=== PATIENT | male | born 1990 | race Caucasian/White ===

== ENCOUNTER 2016-08-27 11:47 | Inpatient (IN) | payer MEDICARE, MEDICAID ==
[~2016-08-27] VITALS: Ht 185.4 cm; Wt 66.3 kg
[~2016-08-27 11:47] MED LIST: ALBU8.5H3 INH; AMLO5TAB4 PO; AZIT500T4 PO; BISA10SU65 PR; CEFD125S3 PO; CEFD300C2 PO; CEPH-368 PO; CIPR500T87 PO; DIPH25CA61 PO; DOXY100T PO; LEVO112T4 PO; LEVO750T26 PO; LISI-424 PO; METR500T PO; METR500T4 PO; ONDA4TAB7 PO; ONDA8TAB16 SL; OXYC15TA PO; OXYC15TA60 PO; POLY17PO5 PO; SENN1TAB7 PO
[2016-08-27] MEDS ORDERED: ONDANSETRON 2MG/ML, 2ML ONE ×2 (12:47→14:01)
[2016-08-27] MEDS ORDERED: HYDROmorphone 1 MG/ML, 1ML ONE ×4 (12:47→17:36)
[2016-08-27] MEDS ORDERED: FAMOTIDINE 20 MG/2 ML ONE (12:47)
[2016-08-27] MEDS: HYDROmorphone 1 MG/ML, 1ML IVPush PRN ×2 (12:55→13:12)
[2016-08-27] MEDS ORDERED: ONDANSETRON 2MG/ML, 2ML IVPush ONE ×2 (13:00→14:30)
[2016-08-27] MEDS ORDERED: FAMOTIDINE 20 MG/2 ML IVP ONE (13:00)
[2016-08-27] MEDS ORDERED: SODIUM CHLORIDE 0.9% 1,000ML IVBOLUS ONE ×2 (13:00→17:30)
[2016-08-27] MEDS ORDERED: SODIUM CHLORIDE FLUSH 10ML SYR IVF ONE (13:00)
[2016-08-27 13:11] LABS: HEMOGLOBIN 14.3 g/dL (13.7-18.0)
[2016-08-27 13:24] LABS: ASPARTATE AMINO TRANSFERASE 13 U/L (15-37); BLOOD UREA NITROGEN 15 mg/dL (7-18)
[2016-08-27 13:34] LABS: IS PT STATUS REG ER OR PRE ER? YES
[2016-08-27] MEDS ORDERED: HYDROmorphone 1 MG/ML, 1ML IV ONE ×2 (14:30→17:30)
[2016-08-27] MEDS ORDERED: OMNIPAQUE 350 MG/ML, 100ML BOTTLE ONE (16:12)
[2016-08-27] MEDS ORDERED: METOCLOPRAMIDE 5 MG/ML, 2ML IVPush ONE (16:30)
[2016-08-27] MEDS ORDERED: METOCLOPRAMIDE 5 MG/ML, 2ML ONE (16:31)
[2016-08-27] MEDS ORDERED: LEVOFLOXACIN/PMX 750MG/150ML 150 ML IV ONE (17:30)
[2016-08-27] MEDS ORDERED: LEVOFLOXACIN/PMX 750MG/150ML 150 ML ONE (17:36)
[2016-08-27] MEDS ORDERED: HYDROmorphone 1 MG/ML, 1ML IVPush PRN (18:00)
[2016-08-27] MEDS ORDERED: VANCOMYCIN PER PHARMACY MC PRN (18:30)
[2016-08-27] MEDS ORDERED: ONDANSETRON 2MG/ML, 2ML IVP PRN (18:30)
[2016-08-27] MEDS ORDERED: DOCUSATE 100 MG CAPSULE PO PRN (18:30)
[2016-08-27] MEDS ORDERED: BISACODYL 10 MG SUPP PR PRN (18:30)
[2016-08-27] MEDS ORDERED: ACETAMINOPHEN 325 MG TABLET PO PRN (18:30)
[2016-08-27] MEDS ORDERED: LABETALOL 5MG/ML, 20ML IVPush PRN (18:30)
[2016-08-27 18:53] VITALS: BP_SYST 200; BP_SYST 214; BP_DIAS 151; BP_DIAS 153
[2016-08-27] MEDS ORDERED: PHARMACY MAY ADJ FOR RENAL FX MC PRN (19:00)
[2016-08-27] MEDS ORDERED: PHARMACOKINETIC MONITORING MC PRN (19:00)
[2016-08-27] MEDS ORDERED: PHARMACOKINETIC CONSULTATION MC ONE (19:00)
[2016-08-27] MEDS: PIPERACILLIN/TAZO/PMX 3.375GM 50 ML IV SCH (19:25)
[2016-08-27] MEDS: SODIUM CHLORIDE 0.9% 1,000 ML IV SCH (19:29)
[2016-08-27] MEDS: ENOXAPARIN 40 MG/0.4 ML SQ SCH (20:00)
[2016-08-27] MEDS: VANCOMYCIN 1,200 MG in SODIUM CHLORIDE 0.9% 250 ML IV SCH (20:09)
[2016-08-27] MEDS: KETOROLAC 30 MG/1 ML IVPush PRN (20:09)
[2016-08-27 20:13] LABS: IS PT STATUS REG ER OR PRE ER? NO
[2016-08-27] MEDS: LACTOBACILLUS 1GM/ PACKET PO SCH (20:53)
[2016-08-27 21:50] VITALS: BP 152/105
[2016-08-27] MEDS ORDERED: SODIUM CHLORIDE INHALATION 3%, 4 ML NEB SCH (22:00)
[2016-08-27] MEDS: OXYcodone IR 5MG TABLET PO PRN (22:19)
[2016-08-27] MEDS: ONDANSETRON 2MG/ML, 2ML IVPush PRN (23:31)
[2016-08-28 01:04] VITALS: BP 187/132
[2016-08-28 01:23] LABS: IS PT STATUS REG ER OR PRE ER? NO
[2016-08-28] MEDS ORDERED: SODIUM PHOSPHATE 20 MMOL in SODIUM CHLORIDE 0.9% 500 ML IV ONE (02:00)
[2016-08-28] MEDS ORDERED: MAGNESIUM SULFATE PMX 2GM/50ML 50 ML IV ONE ×2 (02:00→13:30)
[2016-08-28] MEDS: PIPERACILLIN/TAZO/PMX 3.375GM 50 ML IV SCH ×3 (03:21→20:55)
[2016-08-28] MEDS: KETOROLAC 30 MG/1 ML IVPush PRN ×3 (03:25→20:55)
[2016-08-28] MEDS: ONDANSETRON 2MG/ML, 2ML IVPush PRN ×4 (04:46→20:02)
[2016-08-28 04:48] LABS: HEMOGLOBIN 14.7 g/dL (13.7-18.0)
[2016-08-28 05:08] LABS: ASPARTATE AMINO TRANSFERASE 19 U/L (15-37); BLOOD UREA NITROGEN 10 mg/dL (7-18)
[2016-08-28] MEDS: LACTOBACILLUS 1GM/ PACKET PO SCH ×4 (05:58→21:00)
[2016-08-28 07:26] VITALS: BP 142/106
[2016-08-28] MEDS: SODIUM CHLORIDE 0.9% 1,000 ML IV SCH ×2 (07:56→19:30)
[2016-08-28] MEDS: OXYcodone IR 5MG TABLET PO PRN ×3 (07:59→20:02)
[2016-08-28] MEDS: LEVOTHYROXINE 125 MCG TABLET PO SCH (07:59)
[2016-08-28] MEDS: SODIUM CHLORIDE INHALATION 3%, 4 ML NPPB SCH ×2 (09:00→21:00)
[2016-08-28] MEDS: VANCOMYCIN 1,200 MG in SODIUM CHLORIDE 0.9% 250 ML IV SCH ×2 (11:25→23:31)
[2016-08-28 12:55] VITALS: BP 103/68
[2016-08-28] MEDS ORDERED: POTASSIUM PHOSPHATE 44 MEQ in SODIUM CHLORIDE 0.9% 500 ML IV ONE (13:30)
[2016-08-28] MEDS ORDERED: DIPHENHYDRAMINE 50 MG/ML, 1ML IVPush ONE (17:30)
[2016-08-28 18:55] VITALS: BP 114/70
[2016-08-28] MEDS: ENOXAPARIN 40 MG/0.4 ML SQ SCH (20:00)
[2016-08-28] MEDS: DIPHENHYDRAMINE 25 MG CAPSULE PO PRN (22:03)
[2016-08-29 01:59] VITALS: BP 120/81
[2016-08-29] MEDS: SODIUM CHLORIDE 0.9% 1,000 ML IV SCH ×2 (03:13→17:07)
[2016-08-29] MEDS: ONDANSETRON 2MG/ML, 2ML IVPush PRN ×4 (03:13→20:55)
[2016-08-29] MEDS: OXYcodone IR 5MG TABLET PO PRN ×3 (05:08→17:04)
[2016-08-29] MEDS: PIPERACILLIN/TAZO/PMX 3.375GM 50 ML IV SCH ×2 (05:09→13:34)
[2016-08-29] MEDS: LACTOBACILLUS 1GM/ PACKET PO SCH ×4 (05:14→20:06)
[2016-08-29 08:41] VITALS: BP 146/97
[2016-08-29] MEDS: SODIUM CHLORIDE INHALATION 3%, 4 ML NPPB SCH ×2 (09:00→21:00)
[2016-08-29] MEDS: LEVOTHYROXINE 125 MCG TABLET PO SCH (09:02)
[2016-08-29] MEDS: KETOROLAC 30 MG/1 ML IVPush PRN ×2 (09:02→15:43)
[2016-08-29] MEDS: VANCOMYCIN 1,200 MG in SODIUM CHLORIDE 0.9% 250 ML IV SCH (11:07)
[2016-08-29 13:21] VITALS: BP 141/98
[2016-08-29] MEDS ORDERED: POTASSIUM PHOSPHATE 44 MEQ in SODIUM CHLORIDE 0.9% 500 ML IV ONE (17:00)
[2016-08-29] MEDS ORDERED: SODIUM CHLORIDE 0.9% 1,000 ML IV SCH (17:00)
[2016-08-29] MEDS: DIPHENHYDRAMINE 25 MG CAPSULE PO PRN (17:45)
[2016-08-29 19:48] VITALS: BP 140/93
[2016-08-29] MEDS: ENOXAPARIN 40 MG/0.4 ML SQ SCH (20:00)
[2016-08-30] MEDS: OXYcodone IR 5MG TABLET PO PRN ×2 (00:05→08:40)
[2016-08-30] MEDS: KETOROLAC 30 MG/1 ML IVPush PRN ×2 (00:05→07:15)
[2016-08-30 01:10] VITALS: BP 118/79
[2016-08-30] MEDS: SODIUM CHLORIDE 0.9% 1,000 ML IV SCH (01:17)
[2016-08-30 04:38] LABS: HEMOGLOBIN 12.8 g/dL (13.7-18.0)
[2016-08-30 04:50] LABS: BLOOD UREA NITROGEN 13 mg/dL (7-18)
[2016-08-30] MEDS: LACTOBACILLUS 1GM/ PACKET PO SCH ×2 (05:35→11:05)
[2016-08-30] MEDS: ONDANSETRON 2MG/ML, 2ML IVPush PRN ×2 (07:15→11:29)
[2016-08-30] MEDS: LEVOTHYROXINE 125 MCG TABLET PO SCH (07:15)
[2016-08-30] MEDS: SODIUM CHLORIDE INHALATION 3%, 4 ML NPPB SCH (07:41)
[2016-08-30 08:41] VITALS: BP 120/79
[2016-08-30] MEDS ORDERED: LACT1CAP24 PO (11:20)
== END 2016-08-30 12:00 | disposition home or self-care (01) | DRG 304 ==
LOC: ED 12:29 → 3NW 18:19
PROVIDERS: ADMIT Internal Medicine; ATTEND Internal Medicine
DX: I16.0 Hypertensive urgency (principal); E43 Unspecified severe protein-calorie malnutrition; J47.0 Bronchiectasis with acute lower respiratory infection; E44.1 Mild protein-calorie malnutrition; K86.1 Other chronic pancreatitis; M87.9 Osteonecrosis, unspecified; D49.6 Neoplasm of unspecified behavior of brain; E03.9 Hypothyroidism, unspecified; G89.29 Other chronic pain; R13.10 Dysphagia, unspecified; I10 Essential (primary) hypertension; M54.5 Low back pain; K11.5 Sialolithiasis; K21.9 Gastro-esophageal reflux disease without esophagitis; Z85.818 Personal history of malignant neoplasm of other sites of lip, oral cavity, and pharynx; Z87.891 Personal history of nicotine dependence; Z87.01 Personal history of pneumonia (recurrent); Z93.0 Tracheostomy status; Z80.9 Family history of malignant neoplasm, unspecified
CPT/HCPCS: 36415; 71010; 74177; 80048; 80053; 80061; 81003; 83605; 83690; 83735; 84100; 84145; 84443; 84484; 85025; 85379; 87040; 87070; 87205; 93005; 96361; 96365; 96375; 96376; J1170; J1885; J1956; J2405; J2543; J3370; Q9967; J1200; J2765; J3475; J7030; J7040; J7050; Q0163; S0028

== ENCOUNTER 2016-10-29 15:33 | Emergency (ER) | payer MEDICARE, MEDICAID ==
[~2016-10-29] VITALS: Ht 185.4 cm; Wt 61.6 kg
[~2016-10-29 15:33] MED LIST changes: -AZIT500T4 PO; +AZIT500T77 PO; -CEFD300C2 PO; +CEFD300C37 PO; +LACT1CAP24 PO
[2016-10-29] MEDS ORDERED: SODIUM CHLORIDE 0.9% 1,000 ML IV ONE (15:48)
[2016-10-29] MEDS ORDERED: SODIUM CHLORIDE 0.9% 1,000ML IVBOLUS ONE ×2 (16:30→18:00)
[2016-10-29 16:33] LABS: ASPARTATE AMINO TRANSFERASE 31 U/L (15-37); BLOOD UREA NITROGEN 13 mg/dL (7-18)
[2016-10-29] MEDS ORDERED: ONDANSETRON 2MG/ML, 2ML ONE (16:47)
[2016-10-29] MEDS ORDERED: HYDROmorphone 1 MG/ML, 1ML ONE ×2 (16:47→17:56)
[2016-10-29] MEDS ORDERED: ONDANSETRON 2MG/ML, 2ML IVPush ONE (17:00)
[2016-10-29] MEDS ORDERED: HYDROmorphone 1 MG/ML, 1ML IVPush ONE ×2 (17:00→18:00)
[2016-10-29 18:01] VITALS: BP 119/92
== END 2016-10-29 20:03 | disposition home or self-care (01) ==
LOC: ED 15:58
DX: R06.00 Dyspnea, unspecified (principal); E86.0 Dehydration; D49.6 Neoplasm of unspecified behavior of brain; E03.9 Hypothyroidism, unspecified; I10 Essential (primary) hypertension; K21.9 Gastro-esophageal reflux disease without esophagitis; Z85.818 Personal history of malignant neoplasm of other sites of lip, oral cavity, and pharynx; Z92.3 Personal history of irradiation; R11.2 Nausea with vomiting, unspecified; G89.29 Other chronic pain; R10.9 Unspecified abdominal pain
CPT/HCPCS: 36415; 70360; 71010; 80053; 85025; 85379; 93005; 96361; 96374; 96375; 96376; 99285; J1170; J2405; J7030

== ENCOUNTER 2016-12-09 14:06 | Inpatient (IN) | payer MEDICARE, MEDICAID ==
[~2016-12-09] VITALS: Ht 185.4 cm; Wt 61.9 kg
[2016-12-09] MEDS ORDERED: SODIUM CHLORIDE 0.9% 1,000 ML IV ONE (14:37)
[2016-12-09] MEDS ORDERED: ONDANSETRON 2MG/ML, 2ML ONE (14:57)
[2016-12-09] MEDS ORDERED: HYDROmorphone 1 MG/ML, 1ML ONE ×2 (14:57→17:16)
[2016-12-09] MEDS ORDERED: SODIUM CHLORIDE FLUSH 10ML SYR IVF ONE (15:00)
[2016-12-09] MEDS ORDERED: SODIUM CHLORIDE 0.9% 1,000ML IVBOLUS ONE ×2 (15:00→16:30)
[2016-12-09] MEDS ORDERED: ONDANSETRON 2MG/ML, 2ML IVPush ONE (15:00)
[2016-12-09] MEDS: HYDROmorphone 1 MG/ML, 1ML IVPush PRN ×2 (15:11→17:21)
[2016-12-09 15:27] LABS: ASPARTATE AMINO TRANSFERASE 17 U/L (15-37); BLOOD UREA NITROGEN 15 mg/dL (7-18)
[2016-12-09] MEDS ORDERED: OMNIPAQUE 350 MG/ML, 100ML BOTTLE ONE (16:13)
[2016-12-09] MEDS ORDERED: METRONIDAZOLE PMX 500MG/100ML 100 ML IVPB ONE (16:30)
[2016-12-09] MEDS ORDERED: CEFTRIAXONE PMX 1GM/50ML 50 ML IVPB ONE (16:30)
[2016-12-09] MEDS ORDERED: AZITHROMYCIN 500 MG in SODIUM CHLORIDE 0.9% 250 ML IVPB ONE (16:30)
[2016-12-09] MEDS ORDERED: POLYETHYLENE GLYCOL 17 GM PACKET PO PRN (17:00)
[2016-12-09] MEDS ORDERED: ENALAPRILAT 1.25 MG/ML, 2ML IV PRN (17:00)
[2016-12-09] MEDS ORDERED: GUAIFENESIN/DM 200-20MG, 10ML UDC PO PRN (17:00)
[2016-12-09] MEDS ORDERED: OXYcodone/APAP 5/325MG TABLET PO PRN (17:00)
[2016-12-09] MEDS ORDERED: DOCUSATE 100 MG CAPSULE PO PRN (17:00)
[2016-12-09] MEDS ORDERED: ENOXAPARIN 40 MG/0.4 ML ONE (17:16)
[2016-12-09] MEDS ORDERED: DIPHENHYDRAMINE 50 MG/ML, 1ML ONE (17:16)
[2016-12-09] MEDS: ENOXAPARIN 40 MG/0.4 ML SQ SCH (17:22)
[2016-12-09] MEDS ORDERED: SODIUM CHLORIDE INHALATION 3%, 4 ML NEB ONE (18:30)
[2016-12-09 19:00] VITALS: BP 116/74
[2016-12-09] MEDS: CEFTRIAXONE PMX 1GM/50ML 50 ML IV SCH (19:04)
[2016-12-09] MEDS: ONDANSETRON 2MG/ML, 2ML IVPush PRN (20:13)
[2016-12-09] MEDS: METRONIDAZOLE PMX 500MG/100ML 100 ML IV SCH (20:13)
[2016-12-09] MEDS: OXYcodone IR 5MG TABLET PO SCH (20:53)
[2016-12-09] MEDS ORDERED: OxyconTIN ER 15 MG TAB.ER PO SCH (21:00)
[2016-12-09] MEDS ORDERED: SODIUM CHLORIDE INHALATION 3%, 4 ML NEB SCH (21:00)
[2016-12-09] MEDS ORDERED: DIPHENHYDRAMINE 25 MG CAPSULE PO PRN (22:30)
[2016-12-09] MEDS: NS + 20MEQ KCL 1,000 ML IV SCH (22:41)
[2016-12-10] VITALS (8 sets, daily range): BP systolic 108–192; BP diastolic 63–137
[2016-12-10] MEDS: ONDANSETRON 2MG/ML, 2ML IVPush PRN ×3 (04:21→20:06)
[2016-12-10 04:37] LABS: BLOOD UREA NITROGEN 10 mg/dL (7-18)
[2016-12-10] MEDS: METRONIDAZOLE PMX 500MG/100ML 100 ML IV SCH ×3 (05:14→21:25)
[2016-12-10] MEDS: OXYcodone IR 5MG TABLET PO SCH ×4 (05:14→21:25)
[2016-12-10] MEDS: hydrALAzine 20 MG/ML, 1ML IV PRN ×2 (06:37→18:34)
[2016-12-10] MEDS: NS + 20MEQ KCL 1,000 ML IV SCH (08:43)
[2016-12-10] MEDS: SENNA/DOCUSATE TABLET PO SCH (08:43)
[2016-12-10] MEDS: SODIUM CHLORIDE INHALATION 3%, 4 ML NEB SCH ×2 (09:00→21:00)
[2016-12-10] MEDS: LEVOTHYROXINE 125 MCG TABLET PO SCH (09:08)
[2016-12-10] MEDS: ACETAMINOPHEN 325 MG TABLET PO PRN (11:53)
[2016-12-10] MEDS ORDERED: DIPHENHYDRAMINE 50 MG/ML, 1ML ONE (16:00)
[2016-12-10] MEDS: DIPHENHYDRAMINE 50 MG/ML, 1ML IVPush PRN (16:06)
[2016-12-10] MEDS: ENOXAPARIN 40 MG/0.4 ML SQ SCH (18:00)
[2016-12-10] MEDS: CEFTRIAXONE PMX 1GM/50ML 50 ML IV SCH (20:04)
[2016-12-10] MEDS: LABETALOL 5MG/ML, 20ML IVPush PRN (21:58)
[2016-12-11] VITALS (7 sets, daily range): BP systolic 92–155; BP diastolic 56–113
[2016-12-11] MEDS: ONDANSETRON 2MG/ML, 2ML IVPush PRN ×3 (01:31→21:17)
[2016-12-11] MEDS: DIPHENHYDRAMINE 50 MG/ML, 1ML IVPush PRN ×3 (04:06→20:03)
[2016-12-11] MEDS: METRONIDAZOLE PMX 500MG/100ML 100 ML IV SCH ×3 (05:35→21:17)
[2016-12-11] MEDS: OXYcodone IR 5MG TABLET PO SCH ×4 (05:35→21:17)
[2016-12-11] MEDS: LEVOTHYROXINE 125 MCG TABLET PO SCH (05:35)
[2016-12-11] MEDS: hydrALAzine 20 MG/ML, 1ML IV PRN (07:54)
[2016-12-11] MEDS: ACETAMINOPHEN 325 MG TABLET PO PRN (07:55)
[2016-12-11] MEDS: SODIUM CHLORIDE INHALATION 3%, 4 ML NEB SCH ×2 (09:00→20:58)
[2016-12-11] MEDS: SENNA/DOCUSATE TABLET PO SCH (09:00)
[2016-12-11] MEDS: LABETALOL 5MG/ML, 20ML IVPush PRN (15:09)
[2016-12-11] MEDS: ENOXAPARIN 40 MG/0.4 ML SQ SCH (20:03)
[2016-12-11] MEDS: CEFTRIAXONE PMX 1GM/50ML 50 ML IV SCH (20:03)
[2016-12-12] MEDS: DIPHENHYDRAMINE 50 MG/ML, 1ML IVPush PRN ×3 (03:53→21:13)
[2016-12-12] MEDS: ONDANSETRON 2MG/ML, 2ML IVPush PRN ×3 (03:53→21:13)
[2016-12-12 04:08] VITALS: BP 132/92
[2016-12-12 04:44] LABS: BLOOD UREA NITROGEN 12 mg/dL (7-18)
[2016-12-12] MEDS: LEVOTHYROXINE 125 MCG TABLET PO SCH (06:03)
[2016-12-12] MEDS: METRONIDAZOLE PMX 500MG/100ML 100 ML IV SCH (06:03)
[2016-12-12] MEDS: OXYcodone IR 5MG TABLET PO SCH ×4 (06:03→21:12)
[2016-12-12 07:12] VITALS: BP 118/76
[2016-12-12] MEDS: SODIUM CHLORIDE INHALATION 3%, 4 ML NEB SCH ×2 (07:18→21:30)
[2016-12-12] MEDS: AMOXICILLIN/CLAV 875-125MG TABLET PO SCH ×2 (07:30→08:19)
[2016-12-12] MEDS: metroNIDAZOLE 500 MG TABLET PO SCH ×2 (08:18→17:16)
[2016-12-12] MEDS: AMLODIPINE 5 MG TABLET PO SCH (08:18)
[2016-12-12] MEDS: SENNA/DOCUSATE TABLET PO SCH (08:19)
[2016-12-12] MEDS: AMOXICILLIN PO SCH (12:29)
[2016-12-12] MEDS: CLAV PO SCH (12:29)
[2016-12-12 13:09] VITALS: BP 119/81
[2016-12-12] MEDS: ENOXAPARIN 40 MG/0.4 ML SQ SCH (16:24)
[2016-12-12 18:44] VITALS: BP 122/86
[2016-12-12] MEDS ORDERED: CLAV PO SCH (20:30)
[2016-12-12] MEDS ORDERED: AMOXICILLIN PO SCH (20:30)
[2016-12-13] MEDS: AMOXICILLIN PO SCH ×2 (00:13→11:09)
[2016-12-13] MEDS: CLAV PO SCH ×2 (00:13→11:09)
[2016-12-13] MEDS: metroNIDAZOLE 500 MG TABLET PO SCH ×2 (00:13→07:42)
[2016-12-13 01:55] VITALS: BP 127/89
[2016-12-13] MEDS: DIPHENHYDRAMINE 50 MG/ML, 1ML IVPush PRN ×2 (02:58→09:04)
[2016-12-13] MEDS: ONDANSETRON 2MG/ML, 2ML IVPush PRN ×2 (02:58→09:04)
[2016-12-13] MEDS: LEVOTHYROXINE 125 MCG TABLET PO SCH (06:07)
[2016-12-13] MEDS: OXYcodone IR 5MG TABLET PO SCH ×2 (06:07→11:07)
[2016-12-13 07:20] VITALS: BP 151/123
[2016-12-13] MEDS: LABETALOL 5MG/ML, 20ML IVPush PRN (07:38)
[2016-12-13] MEDS: SENNA/DOCUSATE TABLET PO SCH (07:42)
[2016-12-13] MEDS: AMLODIPINE 5 MG TABLET PO SCH (07:42)
[2016-12-13 08:29] VITALS: BP 94/59
[2016-12-13] MEDS: SODIUM CHLORIDE INHALATION 3%, 4 ML NEB SCH (09:00)
[2016-12-13 10:32] VITALS: BP 94/70
[2016-12-13] MEDS ORDERED: METR500T PO (11:55)
[2016-12-13] MEDS ORDERED: AMLO5TAB2 PO (11:55)
[2016-12-13] MEDS ORDERED: AMOX600S43 PO (11:55)
[2016-12-13 12:48] VITALS: BP 156/105
== END 2016-12-13 12:58 | disposition home or self-care (01) | DRG 871 ==
LOC: ED 15:54 → SUATTDRO 16:48 → EDIP 16:50 → 3NW 18:20
PROVIDERS: ADMIT Family Medicine; ATTEND Family Medicine
DX: A41.9 Sepsis, unspecified organism (principal); J69.0 Pneumonitis due to inhalation of food and vomit; E03.9 Hypothyroidism, unspecified; R65.20 Severe sepsis without septic shock; E86.1 Hypovolemia; G89.29 Other chronic pain; I10 Essential (primary) hypertension; K21.9 Gastro-esophageal reflux disease without esophagitis; Z85.01 Personal history of malignant neoplasm of esophagus; Z85.818 Personal history of malignant neoplasm of other sites of lip, oral cavity, and pharynx; Z87.01 Personal history of pneumonia (recurrent); Z87.891 Personal history of nicotine dependence; Z91.11 Patient's noncompliance with dietary regimen; Z91.19 Patient's noncompliance with other medical treatment and regimen; Z92.21 Personal history of antineoplastic chemotherapy; Z92.3 Personal history of irradiation; Z93.0 Tracheostomy status; Z88.5 Allergy status to narcotic agent; Z88.8 Allergy status to other drugs, medicaments and biological substances
CPT/HCPCS: 36415; 70450; 71010; 74177; 80048; 80053; 81003; 82010; 83605; 83690; 84145; 84443; 85025; 87040; 87070; 87147; 87205; 93005; 94640; 96361; 96374; 96375; 96376; J0696; J1170; J1650; J2405; J3480; Q9967; J0360; J1200; J7030; Q0163

== ENCOUNTER 2017-01-09 13:38 | Inpatient (IN) | payer MEDICARE, MEDICAID ==
[~2017-01-09] VITALS: Ht 185.4 cm; Wt 61.0 kg
[~2017-01-09 13:38] MED LIST changes: +AMLO5TAB2 PO; +AMOX600S43 PO
[2017-01-09] MEDS ORDERED: FAMOTIDINE 20 MG/2 ML IVP ONE (14:00)
[2017-01-09] MEDS ORDERED: SODIUM CHLORIDE 0.9% 1,000 ML IV ONE (14:00)
[2017-01-09] MEDS ORDERED: SODIUM CHLORIDE FLUSH 10ML SYR IVF ONE (14:00)
[2017-01-09] MEDS ORDERED: ONDANSETRON 2MG/ML, 2ML IVPush ONE ×3 (14:00→17:30)
[2017-01-09] MEDS ORDERED: SODIUM CHLORIDE 0.9% 1,000ML IVBOLUS ONE (14:00)
[2017-01-09] MEDS ORDERED: ONDANSETRON 2MG/ML, 2ML ONE ×3 (14:02→17:25)
[2017-01-09 14:25] LABS: HEMATOCRIT 43.5 % (39.2-51.8); HEMOGLOBIN 14.1 g/dL (13.7-18.0)
[2017-01-09 14:26] LABS: ASPARTATE AMINO TRANSFERASE 13 U/L (15-37); BLOOD UREA NITROGEN 13 mg/dL (7-18)
[2017-01-09] MEDS ORDERED: HYDROmorphone 1 MG/ML, 1ML ONE ×3 (14:37→18:09)
[2017-01-09] MEDS ORDERED: FAMOTIDINE 20 MG/2 ML ONE (14:37)
[2017-01-09] MEDS: HYDROmorphone 1 MG/ML, 1ML IVPush PRN ×2 (14:38→15:32)
[2017-01-09 14:57] LABS: PATH.CAST-FLAG NOT PRESENT; SPERM-FLAG NOT PRESENT; SRC-FLAG NOT PRESENT; XTAL-FLAG NOT PRESENT; YLC-FLAG NOT PRESENT
[2017-01-09] MEDS ORDERED: HYDROmorphone 1 MG/ML, 1ML IVPush PRN (15:30)
[2017-01-09] MEDS ORDERED: AMLODIPINE 5 MG TABLET PO ONE (16:00)
[2017-01-09] MEDS: ENOXAPARIN 40 MG/0.4 ML SQ SCH (19:52)
[2017-01-09] MEDS: SODIUM CHLORIDE 0.9% 1,000 ML IV SCH (19:52)
[2017-01-09] MEDS ORDERED: ENALAPRILAT 1.25 MG/ML, 2ML IVPush PRN (20:00)
[2017-01-09] MEDS ORDERED: TEMAZEPAM 15 MG CAPSULE PO PRN (20:00)
[2017-01-09] MEDS ORDERED: hydrALAzine 20 MG/ML, 1ML IVPush PRN (20:00)
[2017-01-09] MEDS ORDERED: hydrALAzine 20 MG/ML, 1ML IV ONE (20:00)
[2017-01-09] MEDS ORDERED: ACETAMINOPHEN 325 MG TABLET PO PRN (20:00)
[2017-01-09] MEDS: METOCLOPRAMIDE 5 MG/ML, 2ML IVPush PRN (20:00)
[2017-01-09 20:02] VITALS: BP 198/153
[2017-01-09 20:07] VITALS: BP 198/153
[2017-01-09] MEDS: HYDROmorphone 2 MG/ML, 1ML IVPush PRN ×2 (21:37→22:14)
[2017-01-09] MEDS: ONDANSETRON 2MG/ML, 2ML IVPush PRN (23:21)
[2017-01-10 01:23] VITALS: BP 125/78
[2017-01-10] MEDS: HYDROmorphone 2 MG/ML, 1ML IVPush PRN ×5 (01:27→23:54)
[2017-01-10] MEDS ORDERED: OXYC5TAB2 PO (02:35)
[2017-01-10] MEDS: METOCLOPRAMIDE 5 MG/ML, 2ML IVPush PRN (02:41)
[2017-01-10] MEDS: SODIUM CHLORIDE 0.9% 1,000 ML IV SCH ×4 (02:41→21:41)
[2017-01-10 05:22] LABS: HEMOGLOBIN 14.1 g/dL (13.7-18.0); WHITE BLOOD COUNT 20.7 x10^3/uL (3.4-10)
[2017-01-10 05:36] LABS: BLOOD UREA NITROGEN 8 mg/dL (7-18)
[2017-01-10] MEDS: ONDANSETRON 2MG/ML, 2ML IVPush PRN ×3 (05:46→21:41)
[2017-01-10] MEDS: OXYcodone IR 5MG TABLET PO SCH ×4 (05:46→21:41)
[2017-01-10] MEDS ORDERED: OxyconTIN ER 15 MG TAB.ER PO SCH (06:00)
[2017-01-10 07:45] VITALS: BP 165/116
[2017-01-10] MEDS: AMLODIPINE 5 MG TABLET PO SCH (08:17)
[2017-01-10] MEDS ORDERED: LEVOTHYROXINE 125 MCG TABLET PO SCH (09:00)
[2017-01-10 12:55] VITALS: BP 110/58
[2017-01-10] MEDS: DIPHENHYDRAMINE 50 MG CAPSULE PO PRN (17:18)
[2017-01-10 19:15] VITALS: BP 148/93
[2017-01-10] MEDS: ENOXAPARIN 40 MG/0.4 ML SQ SCH (20:00)
[2017-01-10] MEDS: SODIUM CHLORIDE INHALATION 3%, 4 ML INH SCH (20:26)
[2017-01-10] MEDS ORDERED: HYDROmorphone 1 MG/ML, 1ML ONE (20:35)
[2017-01-10] MEDS ORDERED: PHARMACOKINETIC CONSULTATION MC ONE (23:30)
[2017-01-10] MEDS ORDERED: PHARMACOKINETIC MONITORING MC PRN (23:30)
[2017-01-10] MEDS ORDERED: VANCOMYCIN PER PHARMACY MC PRN (23:30)
[2017-01-10] MEDS: PIPERACILLIN/TAZO/PMX 3.375GM 50 ML IV SCH (23:53)
[2017-01-11] MEDS: VANCOMYCIN 1,200 MG in SODIUM CHLORIDE 0.9% 250 ML IV SCH ×2 (00:38→14:53)
[2017-01-11] MEDS: HYDROmorphone 2 MG/ML, 1ML IVPush PRN ×4 (02:56→21:13)
[2017-01-11 03:15] VITALS: BP 121/70
[2017-01-11] MEDS: ONDANSETRON 2MG/ML, 2ML IVPush PRN ×3 (03:57→18:10)
[2017-01-11] MEDS: SODIUM CHLORIDE 0.9% 1,000 ML IV SCH ×3 (03:57→19:43)
[2017-01-11] MEDS: PIPERACILLIN/TAZO/PMX 3.375GM 50 ML IV SCH ×3 (06:12→19:43)
[2017-01-11] MEDS: OXYcodone IR 5MG TABLET PO SCH ×3 (06:12→19:43)
[2017-01-11 06:51] LABS: HEMATOCRIT 41.6 % (39.2-51.8); HEMOGLOBIN 13.3 g/dL (13.7-18.0); WHITE BLOOD COUNT 22.9 x10^3/uL (3.4-10)
[2017-01-11 07:00] LABS: BLOOD UREA NITROGEN 12 mg/dL (7-18)
[2017-01-11 07:38] LABS: DIFF TOTAL CELLS COUNTED 100 CELL DIFF
[2017-01-11 07:39] LABS: VERIFY COUNTS? YES
[2017-01-11 07:55] VITALS: BP 116/63
[2017-01-11] MEDS: SODIUM CHLORIDE INHALATION 3%, 4 ML INH SCH ×2 (08:45→19:21)
[2017-01-11] MEDS: AMLODIPINE 5 MG TABLET PO SCH (09:09)
[2017-01-11] MEDS: DIPHENHYDRAMINE 50 MG CAPSULE PO PRN (09:17)
[2017-01-11 13:55] VITALS: BP 152/93
[2017-01-11] MEDS ORDERED: OMNIPAQUE 350 MG/ML, 100ML BOTTLE ONE (14:09)
[2017-01-11] MEDS: METOCLOPRAMIDE 5 MG/ML, 2ML IVPush PRN (14:22)
[2017-01-11] MEDS ORDERED: CEFTRIAXONE PMX 1GM/50ML 50 ML IV SCH (17:00)
[2017-01-11] MEDS ORDERED: METRONIDAZOLE PMX 500MG/100ML 100 ML IV SCH (17:00)
[2017-01-11 19:23] VITALS: BP 94/53
[2017-01-11] MEDS: ENOXAPARIN 40 MG/0.4 ML SQ SCH (19:50)
[2017-01-12] MEDS: ONDANSETRON 2MG/ML, 2ML IVPush PRN ×5 (00:06→23:47)
[2017-01-12] MEDS: HYDROmorphone 2 MG/ML, 1ML IVPush PRN ×3 (00:06→10:46)
[2017-01-12] MEDS: PIPERACILLIN/TAZO/PMX 3.375GM 50 ML IV SCH ×2 (00:07→06:15)
[2017-01-12] MEDS: VANCOMYCIN 1,200 MG in SODIUM CHLORIDE 0.9% 250 ML IV SCH (00:41)
[2017-01-12 01:20] VITALS: BP 96/58
[2017-01-12] MEDS: SODIUM CHLORIDE 0.9% 1,000 ML IV SCH ×4 (01:53→23:47)
[2017-01-12] MEDS: OXYcodone IR 5MG TABLET PO SCH ×5 (01:53→20:23)
[2017-01-12 04:29] LABS: HEMOGLOBIN 12.1 g/dL (13.7-18.0)
[2017-01-12 04:39] LABS: BLOOD UREA NITROGEN 10 mg/dL (7-18)
[2017-01-12] MEDS: LEVOTHYROXINE 125 MCG TABLET PO SCH (06:15)
[2017-01-12 07:58] VITALS: BP 111/70
[2017-01-12] MEDS: AMLODIPINE 5 MG TABLET PO SCH (09:00)
[2017-01-12] MEDS: SODIUM CHLORIDE INHALATION 3%, 4 ML INH SCH ×2 (09:30→19:40)
[2017-01-12] MEDS: CEFTRIAXONE PMX 1GM/50ML 50 ML IV SCH (12:18)
[2017-01-12] MEDS: METRONIDAZOLE PMX 500MG/100ML 100 ML IV SCH ×2 (12:59→20:24)
[2017-01-12 13:52] VITALS: BP 80/52
[2017-01-12 19:52] VITALS: BP 141/91
[2017-01-12] MEDS: ENOXAPARIN 40 MG/0.4 ML SQ SCH (20:00)
[2017-01-12] MEDS: METOCLOPRAMIDE 5 MG/ML, 2ML IVPush PRN (20:26)
[2017-01-13] MEDS: METOCLOPRAMIDE 5 MG/ML, 2ML IVPush PRN (03:44)
[2017-01-13] MEDS: HYDROmorphone 2 MG/ML, 1ML IVPush PRN (03:44)
[2017-01-13 03:50] VITALS: BP 129/86
[2017-01-13] MEDS: OXYcodone IR 5MG TABLET PO SCH ×2 (05:27→09:59)
[2017-01-13] MEDS: LEVOTHYROXINE 125 MCG TABLET PO SCH (05:27)
[2017-01-13] MEDS: METRONIDAZOLE PMX 500MG/100ML 100 ML IV SCH ×2 (05:28→12:55)
[2017-01-13] MEDS: SODIUM CHLORIDE 0.9% 1,000 ML IV SCH ×2 (05:28→12:20)
[2017-01-13 06:11] LABS: HEMATOCRIT 38.4 % (39.2-51.8); HEMOGLOBIN 12.5 g/dL (13.7-18.0); WHITE BLOOD COUNT 12.5 x10^3/uL (3.4-10)
[2017-01-13 06:21] LABS: BLOOD UREA NITROGEN 6 mg/dL (7-18)
[2017-01-13] MEDS ORDERED: ENALAPRILAT 1.25 MG/ML, 2ML IV PRN (06:30)
[2017-01-13 07:02] VITALS: BP 150/106
[2017-01-13] MEDS: SODIUM CHLORIDE INHALATION 3%, 4 ML INH SCH (09:35)
[2017-01-13] MEDS: AMLODIPINE 5 MG TABLET PO SCH (09:58)
[2017-01-13] MEDS ORDERED: AMOX600S36 PO (11:07)
[2017-01-13] MEDS: CEFTRIAXONE PMX 1GM/50ML 50 ML IV SCH (12:01)
[2017-01-13] MEDS: ONDANSETRON 2MG/ML, 2ML IVPush PRN (12:05)
[2017-01-13 13:14] VITALS: BP 142/89
== END 2017-01-13 14:11 | disposition home or self-care (01) | DRG 178 ==
LOC: ED 14:00 → EDIP 18:38 → 3NE 19:25 → 3NW 01-10 15:16
PROVIDERS: ADMIT Internal Medicine; ATTEND Internal Medicine
DX: J69.0 Pneumonitis due to inhalation of food and vomit (principal); I16.9 Hypertensive crisis, unspecified; E44.0 Moderate protein-calorie malnutrition; Z93.0 Tracheostomy status; Z68.1 Body mass index [BMI] 19.9 or less, adult; R13.10 Dysphagia, unspecified; E03.9 Hypothyroidism, unspecified; K21.9 Gastro-esophageal reflux disease without esophagitis; D72.829 Elevated white blood cell count, unspecified; E86.0 Dehydration; I10 Essential (primary) hypertension; Z85.818 Personal history of malignant neoplasm of other sites of lip, oral cavity, and pharynx; Z85.01 Personal history of malignant neoplasm of esophagus; Z92.21 Personal history of antineoplastic chemotherapy; Z92.3 Personal history of irradiation; Z87.01 Personal history of pneumonia (recurrent); Z88.5 Allergy status to narcotic agent; Z88.8 Allergy status to other drugs, medicaments and biological substances
CPT/HCPCS: 36415; 71010; 74160; 76700; 80048; 80053; 81001; 83605; 83690; 83735; 84100; 85025; 87040; 93005; 94640; 96361; 96374; 96375; 96376; J0696; J1170; J2405; J2543; J3370; Q9967; J0360; J2765; J7030; J7050; S0028

== ENCOUNTER 2017-01-23 06:40 | Inpatient (IN) | payer MEDICARE, MEDICAID ==
[~2017-01-23] VITALS: Ht 185.4 cm; Wt 59.2 kg
[~2017-01-23 06:40] MED LIST changes: -ALBU8.5H3 INH; +ALBU8.5H8 INH; +AMOX600S36 PO; +AZIT500T5 PO; -AZIT500T77 PO; -METR500T4 PO; +METR500T8 PO; +OXYC5TAB2 PO
[2017-01-23] MEDS ORDERED: SODIUM CHLORIDE 0.9% 1,000 ML IV ONE (06:59)
[2017-01-23] MEDS ORDERED: LORazepam 1MG TABLET PO ONE (07:00)
[2017-01-23] MEDS ORDERED: ONDANSETRON 2MG/ML, 2ML IVPush ONE (07:00)
[2017-01-23] MEDS ORDERED: SODIUM CHLORIDE 0.9% 1,000ML IVBOLUS ONE (07:00)
[2017-01-23] MEDS ORDERED: MAALOX/HYOSCYAMINE/LIDOCAINE 45 ML BTL PO ONE (07:00)
[2017-01-23] MEDS ORDERED: FAMOTIDINE 20 MG/2 ML IVP ONE (07:00)
[2017-01-23 07:17] LABS: HEMATOCRIT 40.8 % (39.2-51.8); HEMOGLOBIN 13.1 g/dL (13.7-18.0); WHITE BLOOD COUNT 36.2 x10^3/uL (3.4-10)
[2017-01-23] MEDS ORDERED: MAALOX/HYOSCYAMINE/LIDOCAINE 45 ML BTL ONE (07:18)
[2017-01-23] MEDS ORDERED: ONDANSETRON 2MG/ML, 2ML ONE (07:19)
[2017-01-23] MEDS ORDERED: FAMOTIDINE 20 MG/2 ML ONE (07:19)
[2017-01-23 07:20] LABS: DIFF TOTAL CELLS COUNTED 100 CELL DIFF
[2017-01-23 07:31] LABS: ASPARTATE AMINO TRANSFERASE 14 U/L (15-37); BLOOD UREA NITROGEN 13 mg/dL (7-18)
[2017-01-23 07:33] LABS: VERIFY COUNTS? YES
[2017-01-23] MEDS ORDERED: LORazepam 2 MG/ML, 1ML ONE (08:12)
[2017-01-23] MEDS ORDERED: HYDROmorphone 1 MG/ML, 1ML ONE ×2 (08:12→09:04)
[2017-01-23] MEDS: HYDROmorphone 1 MG/ML, 1ML IVPush PRN ×4 (08:16→19:42)
[2017-01-23] MEDS ORDERED: LORazepam 2 MG/ML, 1ML IVPush ONE (10:00)
[2017-01-23] MEDS ORDERED: ONDANSETRON ODT 4 MG PO PRN (11:00)
[2017-01-23] MEDS ORDERED: LABETALOL 5MG/ML, 20ML IVPush PRN (11:00)
[2017-01-23 12:46] VITALS: BP 138/96
[2017-01-23] MEDS ORDERED: SODI4VIA15 NEB (12:47)
[2017-01-23] MEDS: SODIUM CHLORIDE 0.9% 1,000 ML IV SCH ×2 (13:20→20:43)
[2017-01-23] MEDS ORDERED: DIPHENHYDRAMINE 25 MG CAPSULE PO PRN (15:00)
[2017-01-23 15:07] LABS: HEMATOCRIT 36.8 % (39.2-51.8); HEMOGLOBIN 11.9 g/dL (13.7-18.0); WHITE BLOOD COUNT 21.2 x10^3/uL (3.4-10)
[2017-01-23 16:06] LABS: DAU SCREEN DISCLAIMER
[2017-01-23 16:22] LABS: POTASSIUM,URINE RANDOM 17 mmol/L
[2017-01-23 18:47] VITALS: BP 119/83
[2017-01-23] MEDS: ONDANSETRON 2MG/ML, 2ML IVPush PRN (19:42)
[2017-01-23] MEDS: FAMOTIDINE 20 MG/2 ML IVPush SCH (20:43)
[2017-01-24 00:57] VITALS: BP 114/72
[2017-01-24] MEDS: HYDROmorphone 1 MG/ML, 1ML IVPush PRN ×4 (02:16→21:30)
[2017-01-24] MEDS: SODIUM CHLORIDE 0.9% 1,000 ML IV SCH ×4 (03:48→23:11)
[2017-01-24 05:13] LABS: HEMATOCRIT 35.9 % (39.2-51.8); HEMOGLOBIN 11.4 g/dL (13.7-18.0); WHITE BLOOD COUNT 10.8 x10^3/uL (3.4-10)
[2017-01-24 05:19] LABS: BLOOD UREA NITROGEN 10 mg/dL (7-18)
[2017-01-24 05:22] LABS: ASPARTATE AMINO TRANSFERASE 11 U/L (15-37)
[2017-01-24 07:23] VITALS: BP 138/95
[2017-01-24] MEDS: FAMOTIDINE 20 MG/2 ML IVPush SCH ×2 (08:29→20:27)
[2017-01-24] MEDS: AMLODIPINE 5 MG TABLET PO SCH (08:29)
[2017-01-24] MEDS ORDERED: LEVOTHYROXINE 112 MCG TABLET PO SCH (09:00)
[2017-01-24] MEDS: LEVOTHYROXINE 125 MCG TABLET PO SCH (10:57)
[2017-01-24 13:44] VITALS: BP 145/101
[2017-01-24] MEDS ORDERED: OXYcodone IR 5MG TABLET ONE (13:56)
[2017-01-24] MEDS: OXYcodone IR 5MG TABLET PO PRN ×2 (13:58→20:27)
[2017-01-24] MEDS: ONDANSETRON 2MG/ML, 2ML IVPush PRN ×2 (15:29→20:27)
[2017-01-24 15:56] VITALS: BP 147/85
[2017-01-24 18:33] VITALS: BP 118/75
[2017-01-25 02:50] VITALS: BP 145/94
[2017-01-25] MEDS: HYDROmorphone 1 MG/ML, 1ML IVPush PRN (04:36)
[2017-01-25] MEDS: ONDANSETRON 2MG/ML, 2ML IVPush PRN ×3 (04:38→19:52)
[2017-01-25 04:41] LABS: HEMATOCRIT 39.5 % (39.2-51.8); HEMOGLOBIN 12.7 g/dL (13.7-18.0); WHITE BLOOD COUNT 21.4 x10^3/uL (3.4-10)
[2017-01-25 04:52] LABS: BLOOD UREA NITROGEN 7 mg/dL (7-18)
[2017-01-25] MEDS: SODIUM CHLORIDE 0.9% 1,000 ML IV SCH ×3 (05:13→19:17)
[2017-01-25 07:49] VITALS: BP 143/93
[2017-01-25] MEDS: OXYcodone IR 5MG TABLET PO PRN ×3 (08:07→22:15)
[2017-01-25] MEDS: AMLODIPINE 5 MG TABLET PO SCH (08:07)
[2017-01-25] MEDS: FAMOTIDINE 20 MG/2 ML IVPush SCH (08:07)
[2017-01-25] MEDS: LEVOTHYROXINE 125 MCG TABLET PO SCH (08:07)
[2017-01-25] MEDS: SODIUM CHLORIDE INHALATION 3%, 4 ML INH SCH ×2 (08:41→22:45)
[2017-01-25] MEDS ORDERED: DOXYCYCLINE 100MG TABLET PO SCH (11:30)
[2017-01-25] MEDS: CEFTRIAXONE PMX 1GM/50ML 50 ML IV SCH (11:56)
[2017-01-25 14:01] VITALS: BP_SYST 106; BP_SYST 127; BP_DIAS 71
[2017-01-25 14:09] LABS: HEMATOCRIT 38.1 % (39.2-51.8); HEMOGLOBIN 12.4 g/dL (13.7-18.0); WHITE BLOOD COUNT 18.2 x10^3/uL (3.4-10)
[2017-01-25] MEDS: DOXYCYCLINE 100 MG in DEXTROSE 5% 250 ML IV SCH (19:17)
[2017-01-25 20:24] VITALS: BP 116/81
[2017-01-25] MEDS ORDERED: DIPHENHYDRAMINE 50 MG/ML, 1ML IVPush PRN (22:30)
[2017-01-26] MEDS: SODIUM CHLORIDE 0.9% 1,000 ML IV SCH (04:45)
[2017-01-26] MEDS: DOXYCYCLINE 100 MG in DEXTROSE 5% 250 ML IV SCH (06:15)
[2017-01-26 07:15] VITALS: BP 123/83
[2017-01-26] MEDS: LEVOTHYROXINE 125 MCG TABLET PO SCH (07:50)
[2017-01-26] MEDS: AMLODIPINE 5 MG TABLET PO SCH (07:50)
[2017-01-26] MEDS: OXYcodone IR 5MG TABLET PO PRN (07:50)
[2017-01-26 08:19] LABS: ASPARTATE AMINO TRANSFERASE 9 U/L (15-37); BLOOD UREA NITROGEN 7 mg/dL (7-18)
[2017-01-26 08:22] LABS: HEMATOCRIT 36.8 % (39.2-51.8); HEMOGLOBIN 11.8 g/dL (13.7-18.0)
[2017-01-26] MEDS ORDERED: AMOX600S36 PO (10:12)
[2017-01-26] MEDS: CEFTRIAXONE PMX 1GM/50ML 50 ML IV SCH (11:44)
== END 2017-01-26 13:53 | disposition home or self-care (01) | DRG 177 ==
LOC: ED 08:39 → EDIP 10:30 → 4WST 12:33 → 3NW 01-24 15:12
PROVIDERS: ADMIT Hospitalist; ATTEND Hospitalist
DX: J69.0 Pneumonitis due to inhalation of food and vomit (principal); E43 Unspecified severe protein-calorie malnutrition; E87.0 Hyperosmolality and hypernatremia; G93.89 Other specified disorders of brain; K86.1 Other chronic pancreatitis; E83.42 Hypomagnesemia; E86.0 Dehydration; Z68.1 Body mass index [BMI] 19.9 or less, adult; D50.9 Iron deficiency anemia, unspecified; F12.90 Cannabis use, unspecified, uncomplicated; I10 Essential (primary) hypertension; D53.9 Nutritional anemia, unspecified; E03.9 Hypothyroidism, unspecified; G43.A0 Cyclical vomiting, in migraine, not intractable; K21.9 Gastro-esophageal reflux disease without esophagitis; K29.50 Unspecified chronic gastritis without bleeding; Z85.01 Personal history of malignant neoplasm of esophagus; Z85.818 Personal history of malignant neoplasm of other sites of lip, oral cavity, and pharynx; Z92.21 Personal history of antineoplastic chemotherapy; Z92.3 Personal history of irradiation; Z93.0 Tracheostomy status; Z88.8 Allergy status to other drugs, medicaments and biological substances
CPT/HCPCS: 36415; 70450; 71010; 76700; 80048; 80053; 80307; 81003; 82040; 82436; 82607; 82728; 82746; 83540; 83550; 83605; 83690; 83735; 84133; 84145; 84300; 84439; 84443; 85025; 85610; 87040; 93005; 94640; 96361; 96374; 96375; 96376; J0696; J1170; J2405; J7060; Q0162; J1200; J2060; J7030; Q0163; S0028

== ENCOUNTER 2017-04-14 17:49 | Inpatient (IN) | payer MEDICARE, MEDICAID ==
[~2017-04-14] VITALS: Ht 185.4 cm; Wt 61.6 kg
[~2017-04-14 17:49] MED LIST changes: +DOXA2TAB PO; +SODI4VIA15 NEB
[2017-04-14] MEDS ORDERED: ONDANSETRON 2MG/ML, 2ML ONE ×2 (18:22→19:11)
[2017-04-14] MEDS ORDERED: FAMOTIDINE 20 MG/2 ML ONE (18:23)
[2017-04-14 18:26] LABS: HEMOGLOBIN 13.6 g/dL (13.7-18.0)
[2017-04-14] MEDS ORDERED: ONDANSETRON 2MG/ML, 2ML IVPush ONE ×2 (18:30→19:30)
[2017-04-14] MEDS ORDERED: SODIUM CHLORIDE FLUSH 10ML SYR IVF ONE (18:30)
[2017-04-14] MEDS ORDERED: HYDROmorphone 1 MG/ML, 1ML IV ONE ×3 (18:30→21:00)
[2017-04-14] MEDS ORDERED: SODIUM CHLORIDE 0.9% 1,000ML IVBOLUS ONE ×2 (18:30→19:30)
[2017-04-14] MEDS ORDERED: FAMOTIDINE 20 MG/2 ML IVP ONE (18:30)
[2017-04-14 18:39] LABS: ASPARTATE AMINO TRANSFERASE 12 U/L (15-37); BLOOD UREA NITROGEN 10 mg/dL (7-18)
[2017-04-14] MEDS ORDERED: HYDROmorphone 2 MG/ML, 1ML ONE (18:41)
[2017-04-14] MEDS ORDERED: HYDROmorphone 1 MG/ML, 1ML ONE ×2 (19:11→21:17)
[2017-04-14] MEDS ORDERED: OXYC15TA PO (21:15)
[2017-04-14] MEDS ORDERED: DIPH25CA61 PO (21:15)
[2017-04-14] MEDS ORDERED: BISACODYL 10 MG SUPP PR PRN (22:00)
[2017-04-14 22:04] LABS: FERRITIN 16.1 ng/mL (26-388)
[2017-04-14] MEDS: SODIUM CHLORIDE 0.9% 1,000 ML IV SCH (22:30)
[2017-04-14 22:45] VITALS: BP_SYST 168; BP_SYST 181; BP_DIAS 113; BP_DIAS 125
[2017-04-14] MEDS: HEPARIN 5,000 UNITS/ML, 1ML SQ SCH (23:34)
[2017-04-14] MEDS: hydrALAzine 20 MG/ML, 1ML IVPush PRN (23:34)
[2017-04-15] MEDS: DIPHENHYDRAMINE 50 MG/ML, 1ML IVPush PRN ×2 (00:58→20:44)
[2017-04-15 02:36] VITALS: BP 136/93
[2017-04-15] MEDS: HYDROmorphone 2 MG/ML, 1ML IVPush PRN ×5 (04:00→19:10)
[2017-04-15] MEDS: ONDANSETRON 2MG/ML, 2ML IVPush PRN ×2 (04:01→11:27)
[2017-04-15] MEDS: SODIUM CHLORIDE 0.9% 1,000 ML IV SCH ×3 (05:20→19:07)
[2017-04-15 05:47] LABS: BLOOD UREA NITROGEN 8 mg/dL (7-18)
[2017-04-15 05:51] LABS: ASPARTATE AMINO TRANSFERASE 10 U/L (15-37)
[2017-04-15 06:02] LABS: HEMATOCRIT 38.5 % (39.2-51.8); HEMOGLOBIN 12.5 g/dL (13.7-18.0); WHITE BLOOD COUNT 9.9 x10^3/uL (3.4-10)
[2017-04-15] MEDS: HEPARIN 5,000 UNITS/ML, 1ML SQ SCH ×3 (07:39→20:44)
[2017-04-15 07:47] VITALS: BP_SYST 172; BP_SYST 175; BP_DIAS 109; BP_DIAS 124
[2017-04-15] MEDS: hydrALAzine 20 MG/ML, 1ML IVPush PRN (07:56)
[2017-04-15] MEDS ORDERED: LABETALOL 5MG/ML, 20ML IVPush PRN (08:00)
[2017-04-15] MEDS ORDERED: MAGNESIUM SULFATE PMX 2GM/50ML 50 ML IV ONE (08:00)
[2017-04-15 09:42] VITALS: BP 122/79
[2017-04-15] MEDS: LEVOTHYROXINE 100 MCG INJ IVPush SCH (11:12)
[2017-04-15] MEDS: IRON SUCROSE COMPLEX 100MG/5ML IV SCH (11:12)
[2017-04-15] MEDS: SODIUM CHLORIDE INHALATION 7%, 4 ML NPPB SCH ×2 (12:00→21:26)
[2017-04-15 14:15] VITALS: BP 149/103
[2017-04-15] MEDS ORDERED: LORazepam 2 MG/ML, 1ML ONE (16:01)
[2017-04-15] MEDS: LORazepam 2 MG/ML, 1ML IVPush PRN (16:03)
[2017-04-15 20:13] VITALS: BP 124/74
[2017-04-16 00:48] VITALS: BP 137/86
[2017-04-16] MEDS: HYDROmorphone 2 MG/ML, 1ML IVPush PRN ×7 (00:55→22:34)
[2017-04-16] MEDS: ONDANSETRON 2MG/ML, 2ML IVPush PRN ×4 (00:55→22:34)
[2017-04-16] MEDS: SODIUM CHLORIDE 0.9% 1,000 ML IV SCH ×3 (01:27→19:06)
[2017-04-16 05:14] LABS: BLOOD UREA NITROGEN 10 mg/dL (7-18)
[2017-04-16 05:15] LABS: HEMATOCRIT 37.6 % (39.2-51.8); HEMOGLOBIN 12.1 g/dL (13.7-18.0); WHITE BLOOD COUNT 12.5 x10^3/uL (3.4-10)
[2017-04-16 05:19] LABS: ASPARTATE AMINO TRANSFERASE 10 U/L (15-37)
[2017-04-16 07:39] VITALS: BP 128/81
[2017-04-16] MEDS: HEPARIN 5,000 UNITS/ML, 1ML SQ SCH ×3 (07:56→23:30)
[2017-04-16] MEDS: IRON SUCROSE COMPLEX 100MG/5ML IV SCH (08:48)
[2017-04-16] MEDS: LEVOTHYROXINE 100 MCG INJ IVPush SCH (08:48)
[2017-04-16] MEDS: SODIUM CHLORIDE INHALATION 7%, 4 ML NPPB SCH ×2 (09:00→21:00)
[2017-04-16 13:30] VITALS: BP 124/80
[2017-04-16] MEDS: LORazepam 2 MG/ML, 1ML IVPush PRN (17:06)
[2017-04-16 20:03] VITALS: BP 106/67
[2017-04-16] MEDS: DIPHENHYDRAMINE 50 MG/ML, 1ML IVPush PRN (22:34)
[2017-04-17 02:02] VITALS: BP 111/75
[2017-04-17] MEDS: HYDROmorphone 2 MG/ML, 1ML IVPush PRN ×4 (02:22→15:07)
[2017-04-17] MEDS: ONDANSETRON 2MG/ML, 2ML IVPush PRN ×3 (06:39→20:06)
[2017-04-17 07:42] VITALS: BP 118/73
[2017-04-17] MEDS: LEVOTHYROXINE 100 MCG INJ IVPush SCH (08:45)
[2017-04-17] MEDS: SODIUM CHLORIDE 0.9% 1,000 ML IV SCH (08:46)
[2017-04-17] MEDS: HEPARIN 5,000 UNITS/ML, 1ML SQ SCH ×3 (08:46→23:30)
[2017-04-17] MEDS: DIPHENHYDRAMINE 50 MG/ML, 1ML IVPush PRN ×2 (08:49→23:12)
[2017-04-17] MEDS: SODIUM CHLORIDE INHALATION 7%, 4 ML NPPB SCH (11:05)
[2017-04-17 13:52] VITALS: BP 121/79
[2017-04-17] MEDS: OXYcodone IR 5MG TABLET PO SCH ×2 (17:48→23:12)
[2017-04-17 19:55] VITALS: BP 149/88
[2017-04-17] MEDS: HYDROmorphone 1 MG/ML, 1ML IVPush PRN (20:06)
[2017-04-17] MEDS ORDERED: ALBUTEROL SULFATE 2.5 MG/3 ML ONE (22:32)
[2017-04-18] MEDS: SODIUM CHLORIDE 0.9% 1,000 ML IV SCH ×2 (00:12→12:28)
[2017-04-18 02:15] VITALS: BP 126/88
[2017-04-18] MEDS: OXYcodone IR 5MG TABLET PO SCH ×2 (05:54→12:27)
[2017-04-18] MEDS: HEPARIN 5,000 UNITS/ML, 1ML SQ SCH ×2 (07:30→15:27)
[2017-04-18 08:05] VITALS: BP 129/80
[2017-04-18] MEDS: LEVOTHYROXINE 100 MCG INJ IVPush SCH (08:33)
[2017-04-18] MEDS: HYDROmorphone 1 MG/ML, 1ML IVPush PRN ×2 (08:35→14:53)
[2017-04-18] MEDS: ONDANSETRON 2MG/ML, 2ML IVPush PRN ×2 (08:35→16:43)
[2017-04-18 12:35] VITALS: BP 168/127
[2017-04-18] MEDS: hydrALAzine 20 MG/ML, 1ML IVPush PRN (12:50)
[2017-04-18] MEDS: DIPHENHYDRAMINE 50 MG/ML, 1ML IVPush PRN (13:21)
[2017-04-18 15:05] VITALS: BP 150/98
[2017-04-18] MEDS ORDERED: SODIUM CHLORIDE INHALATION 3%, 4 ML NPPB SCH (20:00)
== END 2017-04-18 17:20 | disposition home or self-care (01) | DRG 439 ==
LOC: ED 18:55 → EDIP 20:54 → 3NW 22:04
PROVIDERS: ADMIT Family Medicine; ATTEND Family Medicine
DX: K85.90 Acute pancreatitis without necrosis or infection, unspecified (principal); E87.0 Hyperosmolality and hypernatremia; R65.10 Systemic inflammatory response syndrome (SIRS) of non-infectious origin without acute organ dysfunction; Z93.0 Tracheostomy status; E44.1 Mild protein-calorie malnutrition; E83.42 Hypomagnesemia; D50.9 Iron deficiency anemia, unspecified; F12.90 Cannabis use, unspecified, uncomplicated; E03.9 Hypothyroidism, unspecified; K86.1 Other chronic pancreatitis; I10 Essential (primary) hypertension; K21.9 Gastro-esophageal reflux disease without esophagitis; G89.29 Other chronic pain; Z87.01 Personal history of pneumonia (recurrent); Z85.818 Personal history of malignant neoplasm of other sites of lip, oral cavity, and pharynx; Z92.21 Personal history of antineoplastic chemotherapy; Z92.3 Personal history of irradiation
CPT/HCPCS: 36415; 71010; 80053; 81003; 82728; 83540; 83550; 83605; 83690; 83735; 85025; 94640; 96374; J1170; J1644; J1756; J2405; J0360; J1200; J2060; J3475; J7030; S0028

== ENCOUNTER 2017-05-18 11:30 | Inpatient (IN) | payer MEDICARE, MEDICAID ==
[~2017-05-18] VITALS: Ht 185.4 cm; Wt 63.9 kg
[2017-05-18] MEDS ORDERED: FAMOTIDINE 20 MG/2 ML IVP ONE (12:30)
[2017-05-18] MEDS ORDERED: ONDANSETRON 2MG/ML, 2ML IVPush ONE ×2 (12:30→14:00)
[2017-05-18] MEDS ORDERED: SODIUM CHLORIDE FLUSH 10ML SYR IVF ONE (12:30)
[2017-05-18] MEDS ORDERED: SODIUM CHLORIDE 0.9% 1,000ML IVBOLUS ONE (12:30)
[2017-05-18 12:38] LABS: BASOPHILS # (AUTO) 0.02 x10^3/uL (0-0.1); BASOPHILS % (AUTO) 0 % (0-1); EOSINOPHILS % (AUTO) 0 % (1-7); LYMPHOCYTES # (AUTO) 0.71 x10^3/uL (1-3.4); LYMPHOCYTES % (AUTO) 6 % (22-44); MD NO; MEAN CORPUSCULAR HEMOGLOBIN 26.1 pg (27.5-34.5); MEAN CORPUSCULAR HGB CONC 32.8 g/dL (33.2-36.2); MEAN CORPUSCULAR VOLUME 79.8 fL (81-97); MEAN PLATELET VOLUME 7.7 fL (7.4-10.4); MONOCYTES # (AUTO) 0.63 x10^3/uL (0.2-0.8); MONOCYTES % (AUTO) 5 % (2-9); NEUTROPHILS % (AUTO) 90 % (42-75); PLATELET COUNT 278 x10^3/uL (130-400); RED BLOOD COUNT 5.56 x10^6/uL (4.38-5.82); RED CELL DISTRIBUTION WIDTH 16.9 % (9.4-14.8)
[2017-05-18] MEDS ORDERED: ONDANSETRON 2MG/ML, 2ML ONE ×2 (12:40→14:52)
[2017-05-18] MEDS ORDERED: HYDROmorphone 2 MG/ML, 1ML ONE ×2 (12:40→14:10)
[2017-05-18] MEDS ORDERED: FAMOTIDINE 20 MG/2 ML ONE (12:40)
[2017-05-18] MEDS: HYDROmorphone 1 MG/ML, 1ML IVPush PRN ×3 (12:47→15:05)
[2017-05-18 12:51] LABS: ALANINE AMINOTRANSFERASE 20 U/L (12-78); ALBUMIN 4.5 g/dL (3.4-5.0); ANION GAP 7 mmol/L (5-15); CALCIUM 9.4 mg/dL (8.5-10.1); CHLORIDE 103 mmol/L (98-107); CREATININE 1.01 mg/dL (0.7-1.3)
[2017-05-18 12:54] LABS: ALKALINE PHOSPHATASE 90 U/L (45-117); BILIRUBIN,TOTAL 0.6 mg/dL (0.2-1.0); TOTAL PROTEIN 9.1 g/dL (6.4-8.2)
[2017-05-18] MEDS ORDERED: LEVO125T PO (13:15)
[2017-05-18] MEDS ORDERED: HYDROmorphone 1 MG/ML, 1ML IV ONE (14:00)
[2017-05-18] MEDS ORDERED: OMNIPAQUE 350 MG/ML, 100ML BOTTLE ONE (14:46)
[2017-05-18 16:30] VITALS: BP 185/121
[2017-05-18] MEDS ORDERED: ONDANSETRON ODT 4 MG PO PRN (16:30)
[2017-05-18] MEDS ORDERED: HYDROcodone/APAP 5/325 TABLET PO PRN (16:30)
[2017-05-18] MEDS: ENOXAPARIN 40 MG/0.4 ML SQ SCH (17:19)
[2017-05-18] MEDS: LABETALOL 5MG/ML, 20ML IVPush PRN ×2 (17:19→20:04)
[2017-05-18] MEDS: D5%-0.45NACL+KCL 20MEQ 1,000 ML IV SCH (17:19)
[2017-05-18] MEDS: HYDROmorphone 2 MG/ML, 1ML IVPush PRN ×2 (18:15→22:18)
[2017-05-18 19:46] VITALS: BP 135/93
[2017-05-18] MEDS: DIPHENHYDRAMINE 50 MG/ML, 1ML IVPush PRN (20:05)
[2017-05-18] MEDS: OXYcodone IR 5MG TABLET PO SCH (21:00)
[2017-05-18] MEDS: ONDANSETRON 2MG/ML, 2ML IVPush PRN (22:18)
[2017-05-19] MEDS: D5%-0.45NACL+KCL 20MEQ 1,000 ML IV SCH ×2 (03:09→13:02)
[2017-05-19 04:10] VITALS: BP 139/96
[2017-05-19] MEDS: HYDROmorphone 2 MG/ML, 1ML IVPush PRN ×4 (04:56→17:27)
[2017-05-19] MEDS: ONDANSETRON 2MG/ML, 2ML IVPush PRN ×3 (05:04→17:27)
[2017-05-19 05:13] VITALS: BP 189/130
[2017-05-19] MEDS: LABETALOL 5MG/ML, 20ML IVPush PRN (05:24)
[2017-05-19] MEDS: LEVOTHYROXINE 125 MCG TABLET PO SCH (05:24)
[2017-05-19] MEDS: OXYcodone IR 5MG TABLET PO SCH ×4 (05:52→21:04)
[2017-05-19] MEDS ORDERED: SODIUM CHLORIDE INHALATION 3%, 4 ML NPPB SCH (06:00)
[2017-05-19 06:42] VITALS: BP 106/70
[2017-05-19] MEDS: DOXAZOSIN 2MG TABLET PO SCH (08:14)
[2017-05-19 11:12] LABS: INTERNATIONAL NORMALIZED RATIO 1.1 (0.93-1.1); PROTHROMBIN TIME 11.3 Seconds (9.6-11.5)
[2017-05-19 11:13] LABS: BASOPHILS # (AUTO) 0.02 x10^3/uL (0-0.1); BASOPHILS % (AUTO) 0 % (0-1); EOSINOPHILS # (AUTO) 0.03 x10^3/uL (0-0.4); EOSINOPHILS % (AUTO) 0 % (1-7); LYMPHOCYTES # (AUTO) 1.76 x10^3/uL (1-3.4); LYMPHOCYTES % (AUTO) 21 % (22-44); MD NO; MEAN CORPUSCULAR HGB CONC 32.4 g/dL (33.2-36.2); MEAN CORPUSCULAR VOLUME 80.4 fL (81-97); MEAN PLATELET VOLUME 7.6 fL (7.4-10.4); MONOCYTES # (AUTO) 0.79 x10^3/uL (0.2-0.8); MONOCYTES % (AUTO) 9 % (2-9); NEUTROPHILS # (AUTO) 5.84 x10^3/uL (1.8-6.8); NEUTROPHILS % (AUTO) 69 % (42-75); PLATELET COUNT 261 x10^3/uL (130-400); RED BLOOD COUNT 5.69 x10^6/uL (4.38-5.82); RED CELL DISTRIBUTION WIDTH 17.2 % (9.4-14.8)
[2017-05-19 11:18] LABS: ALANINE AMINOTRANSFERASE 20 U/L (12-78); ALBUMIN 4.1 g/dL (3.4-5.0); ANION GAP 6 mmol/L (5-15); CALCIUM 9.1 mg/dL (8.5-10.1); CHLORIDE 105 mmol/L (98-107); CREATININE 1.04 mg/dL (0.7-1.3)
[2017-05-19 11:20] LABS: ALKALINE PHOSPHATASE 81 U/L (45-117); BILIRUBIN,TOTAL 0.6 mg/dL (0.2-1.0); TOTAL PROTEIN 8.5 g/dL (6.4-8.2)
[2017-05-19 14:00] VITALS: BP 108/75
[2017-05-19] MEDS: ENOXAPARIN 40 MG/0.4 ML SQ SCH (16:07)
[2017-05-19 19:35] VITALS: BP 97/60
[2017-05-19] MEDS: DIPHENHYDRAMINE 50 MG/ML, 1ML IVPush PRN (20:01)
[2017-05-19] MEDS: SODIUM CHLORIDE INHALATION 3%, 4 ML NPPB SCH (21:20)
[2017-05-20] MEDS: D5%-0.45NACL+KCL 20MEQ 1,000 ML IV SCH ×3 (00:18→20:05)
[2017-05-20 01:09] VITALS: BP 118/75
[2017-05-20] MEDS: ONDANSETRON 2MG/ML, 2ML IVPush PRN ×2 (02:48→14:57)
[2017-05-20] MEDS: HYDROmorphone 2 MG/ML, 1ML IVPush PRN ×3 (02:48→14:21)
[2017-05-20] MEDS: OXYcodone IR 5MG TABLET PO SCH ×4 (05:58→20:05)
[2017-05-20] MEDS: LEVOTHYROXINE 125 MCG TABLET PO SCH (05:59)
[2017-05-20 06:07] LABS: BASOPHILS # (AUTO) 0.02 x10^3/uL (0-0.1); BASOPHILS % (AUTO) 0 % (0-1); EOSINOPHILS # (AUTO) 0.05 x10^3/uL (0-0.4); EOSINOPHILS % (AUTO) 1 % (1-7); LYMPHOCYTES % (AUTO) 24 % (22-44); MD NO; MEAN CORPUSCULAR HGB CONC 32.3 g/dL (33.2-36.2); MEAN CORPUSCULAR VOLUME 80.6 fL (81-97); MEAN PLATELET VOLUME 7.7 fL (7.4-10.4); MONOCYTES # (AUTO) 0.66 x10^3/uL (0.2-0.8); MONOCYTES % (AUTO) 11 % (2-9); NEUTROPHILS # (AUTO) 3.67 x10^3/uL (1.8-6.8); NEUTROPHILS % (AUTO) 63 % (42-75); PLATELET COUNT 231 x10^3/uL (130-400); RED BLOOD COUNT 5.21 x10^6/uL (4.38-5.82); RED CELL DISTRIBUTION WIDTH 17.4 % (9.4-14.8)
[2017-05-20 06:10] LABS: CHLORIDE 107 mmol/L (98-107)
[2017-05-20 06:24] LABS: ALANINE AMINOTRANSFERASE 17 U/L (12-78); ALBUMIN 3.7 g/dL (3.4-5.0); ALKALINE PHOSPHATASE 69 U/L (45-117); ANION GAP 6 mmol/L (5-15); BILIRUBIN,TOTAL 0.6 mg/dL (0.2-1.0); CALCIUM 8.6 mg/dL (8.5-10.1); CREATININE 1.15 mg/dL (0.7-1.3); TOTAL PROTEIN 7.4 g/dL (6.4-8.2)
[2017-05-20] MEDS: DIPHENHYDRAMINE 50 MG/ML, 1ML IVPush PRN ×2 (08:12→20:05)
[2017-05-20] MEDS: DOXAZOSIN 2MG TABLET PO SCH (08:12)
[2017-05-20 08:31] VITALS: BP 121/91
[2017-05-20] MEDS: SODIUM CHLORIDE INHALATION 3%, 4 ML NPPB SCH ×2 (09:00→20:45)
[2017-05-20 14:48] VITALS: BP 134/90
[2017-05-20] MEDS: ENOXAPARIN 40 MG/0.4 ML SQ SCH (16:01)
[2017-05-20 19:15] VITALS: BP 139/97
[2017-05-21 02:20] VITALS: BP 116/75
[2017-05-21] MEDS: HYDROmorphone 2 MG/ML, 1ML IVPush PRN (03:23)
[2017-05-21] MEDS: ONDANSETRON 2MG/ML, 2ML IVPush PRN ×2 (03:28→09:36)
[2017-05-21 04:55] LABS: CHLORIDE 107 mmol/L (98-107)
[2017-05-21 04:57] LABS: BASOPHILS # (AUTO) 0.02 x10^3/uL (0-0.1); BASOPHILS % (AUTO) 0 % (0-1); EOSINOPHILS # (AUTO) 0.09 x10^3/uL (0-0.4); EOSINOPHILS % (AUTO) 1 % (1-7); LYMPHOCYTES # (AUTO) 1.27 x10^3/uL (1-3.4); LYMPHOCYTES % (AUTO) 21 % (22-44); MD NO; MEAN CORPUSCULAR HEMOGLOBIN 26.1 pg (27.5-34.5); MEAN CORPUSCULAR VOLUME 81.6 fL (81-97); MEAN PLATELET VOLUME 7.5 fL (7.4-10.4); MONOCYTES # (AUTO) 0.61 x10^3/uL (0.2-0.8); MONOCYTES % (AUTO) 10 % (2-9); NEUTROPHILS # (AUTO) 4.09 x10^3/uL (1.8-6.8); NEUTROPHILS % (AUTO) 67 % (42-75); PLATELET COUNT 226 x10^3/uL (130-400); RED BLOOD COUNT 5.22 x10^6/uL (4.38-5.82); RED CELL DISTRIBUTION WIDTH 16.7 % (9.4-14.8)
[2017-05-21 05:01] LABS: ALANINE AMINOTRANSFERASE 17 U/L (12-78); ALBUMIN 3.7 g/dL (3.4-5.0); ALKALINE PHOSPHATASE 67 U/L (45-117); ANION GAP 6 mmol/L (5-15); BILIRUBIN,TOTAL 0.8 mg/dL (0.2-1.0); CALCIUM 8.3 mg/dL (8.5-10.1); CREATININE 1.05 mg/dL (0.7-1.3); TOTAL PROTEIN 7.4 g/dL (6.4-8.2)
[2017-05-21] MEDS: OXYcodone IR 5MG TABLET PO SCH ×3 (05:58→16:37)
[2017-05-21] MEDS: D5%-0.45NACL+KCL 20MEQ 1,000 ML IV SCH (05:59)
[2017-05-21] MEDS: LEVOTHYROXINE 125 MCG TABLET PO SCH (05:59)
[2017-05-21 07:00] VITALS: BP 115/81
[2017-05-21] MEDS: SODIUM CHLORIDE INHALATION 3%, 4 ML NPPB SCH (09:00)
[2017-05-21] MEDS: DOXAZOSIN 2MG TABLET PO SCH (09:35)
[2017-05-21] MEDS: DIPHENHYDRAMINE 50 MG/ML, 1ML IVPush PRN (09:36)
[2017-05-21 12:48] VITALS: BP 123/87
[2017-05-21] MEDS ORDERED: D5%-0.45NACL+KCL 20MEQ 1,000 ML IV SCH (16:15)
[2017-05-21] MEDS: ENOXAPARIN 40 MG/0.4 ML SQ SCH (16:30)
== END 2017-05-21 16:45 | disposition home or self-care (01) | DRG 438 ==
LOC: ED 14:01 → EDIP 15:35 → 3NW 16:19
PROVIDERS: ADMIT Hospitalist; ATTEND Hospitalist
DX: K85.00 Idiopathic acute pancreatitis without necrosis or infection (principal); E43 Unspecified severe protein-calorie malnutrition; C11.9 Malignant neoplasm of nasopharynx, unspecified; Z93.0 Tracheostomy status; E86.0 Dehydration; D50.9 Iron deficiency anemia, unspecified; E03.9 Hypothyroidism, unspecified; K21.9 Gastro-esophageal reflux disease without esophagitis; F12.90 Cannabis use, unspecified, uncomplicated; I10 Essential (primary) hypertension; L29.9 Pruritus, unspecified; Z87.891 Personal history of nicotine dependence; Z85.818 Personal history of malignant neoplasm of other sites of lip, oral cavity, and pharynx; Z85.01 Personal history of malignant neoplasm of esophagus; G89.29 Other chronic pain
CPT/HCPCS: 36415; 74177; 76700; 80053; 83690; 83735; 85025; 85610; 94640; 96361; 96374; 96375; 96376; J1170; J2405; Q9967; J1200; J3480; J7030; S0028

== ENCOUNTER 2017-06-21 08:33 | Inpatient (IN) | payer MEDICARE, MEDICAID ==
[~2017-06-21] VITALS: Ht 185.4 cm; Wt 62.4 kg
[~2017-06-21 08:33] MED LIST changes: +LEVO125T PO
[2017-06-21 09:53] LABS: BASOPHILS # (AUTO) 0.03 x10^3/uL (0-0.1); BASOPHILS % (AUTO) 0 % (0-1); EOSINOPHILS # (AUTO) 0.01 x10^3/uL (0-0.4); EOSINOPHILS % (AUTO) 0 % (1-7); LYMPHOCYTES # (AUTO) 0.87 x10^3/uL (1-3.4); LYMPHOCYTES % (AUTO) 7 % (22-44); MD NO; MEAN CORPUSCULAR HGB CONC 32.4 g/dL (33.2-36.2); MEAN CORPUSCULAR VOLUME 80.3 fL (81-97); MEAN PLATELET VOLUME 7.6 fL (7.4-10.4); MONOCYTES % (AUTO) 5 % (2-9); NEUTROPHILS # (AUTO) 11.74 x10^3/uL (1.8-6.8); NEUTROPHILS % (AUTO) 88 % (42-75); PLATELET COUNT 231 x10^3/uL (130-400); RED BLOOD COUNT 5.53 x10^6/uL (4.38-5.82); RED CELL DISTRIBUTION WIDTH 16.6 % (9.4-14.8)
[2017-06-21] MEDS ORDERED: ONDANSETRON 2MG/ML, 2ML ONE ×3 (09:54→12:32)
[2017-06-21] MEDS ORDERED: HYDROmorphone 2 MG/ML, 1ML ONE ×4 (09:54→15:37)
[2017-06-21 09:57] LABS: ALANINE AMINOTRANSFERASE 21 U/L (12-78); ALBUMIN 4.2 g/dL (3.4-5.0); ANION GAP 6 mmol/L (5-15); CALCIUM 8.6 mg/dL (8.5-10.1); CHLORIDE 106 mmol/L (98-107); CREATININE 1.11 mg/dL (0.7-1.3)
[2017-06-21] MEDS: HYDROmorphone 1 MG/ML, 1ML IVPush PRN ×2 (09:58→10:40)
[2017-06-21 10:00] LABS: ALKALINE PHOSPHATASE 84 U/L (45-117); BILIRUBIN,TOTAL 0.5 mg/dL (0.2-1.0); TOTAL PROTEIN 8.4 g/dL (6.4-8.2)
[2017-06-21] MEDS ORDERED: ONDANSETRON 2MG/ML, 2ML IVPush ONE ×2 (10:00→12:30)
[2017-06-21] MEDS ORDERED: SODIUM CHLORIDE FLUSH 10ML SYR IVF ONE (10:00)
[2017-06-21 12:04] LABS: MICROSCOPIC AUTO
[2017-06-21 12:05] LABS: CULTURE INDICATED? NO
[2017-06-21] MEDS ORDERED: HYDROmorphone 1 MG/ML, 1ML IV ONE (12:30)
[2017-06-21] MEDS ORDERED: SODIUM CHLORIDE 0.9% 1,000ML IVBOLUS ONE ×2 (12:30→14:00)
[2017-06-21] MEDS ORDERED: LABETALOL 5MG/ML, 20ML IVPush PRN (15:00)
[2017-06-21] MEDS ORDERED: POLYETHYLENE GLYCOL 17 GM PACKET PO PRN (15:00)
[2017-06-21] MEDS ORDERED: BISACODYL 10 MG SUPP PR PRN (15:00)
[2017-06-21] MEDS ORDERED: OXYcodone/APAP 10/325MG TABLET PO PRN (15:00)
[2017-06-21] MEDS ORDERED: METOCLOPRAMIDE 5 MG/ML, 2ML IVPush PRN (15:00)
[2017-06-21] MEDS ORDERED: DOCUSATE 100 MG CAPSULE PO PRN (15:00)
[2017-06-21] MEDS ORDERED: ENALAPRILAT 1.25 MG/ML, 2ML IVPush PRN (15:00)
[2017-06-21] MEDS: ENOXAPARIN 40 MG/0.4 ML SQ SCH (15:00)
[2017-06-21 15:23] VITALS: BP 186/135
[2017-06-21] MEDS: HYDROmorphone 2 MG/ML, 1ML IVPush PRN ×2 (15:41→19:08)
[2017-06-21] MEDS: LACTATED RINGERS 1,000 ML IV SCH ×2 (15:49→23:18)
[2017-06-21 17:29] VITALS: BP 109/71
[2017-06-21] MEDS: ONDANSETRON 2MG/ML, 2ML IVPush PRN (19:01)
[2017-06-21] MEDS: DIPHENHYDRAMINE 50 MG/ML, 1ML IVPush PRN (19:08)
[2017-06-21 20:18] VITALS: BP 194/142
[2017-06-21] MEDS: SODIUM CHLORIDE INHALATION 3%, 4 ML NPPB SCH (20:43)
[2017-06-21 21:00] VITALS: BP 129/95
[2017-06-22] VITALS (11 sets, daily range): BP systolic 70–189; BP diastolic 44–130
[2017-06-22] MEDS: HYDROmorphone 2 MG/ML, 1ML IVPush PRN ×5 (01:25→20:10)
[2017-06-22] MEDS: ONDANSETRON 2MG/ML, 2ML IVPush PRN ×5 (01:25→20:10)
[2017-06-22 04:55] LABS: BASOPHILS # (AUTO) 0.03 x10^3/uL (0-0.1); BASOPHILS % (AUTO) 0 % (0-1); EOSINOPHILS # (AUTO) 0.02 x10^3/uL (0-0.4); EOSINOPHILS % (AUTO) 0 % (1-7); LYMPHOCYTES # (AUTO) 1.31 x10^3/uL (1-3.4); LYMPHOCYTES % (AUTO) 9 % (22-44); MD NO; MEAN CORPUSCULAR HEMOGLOBIN 26.3 pg (27.5-34.5); MEAN CORPUSCULAR HGB CONC 32.7 g/dL (33.2-36.2); MEAN CORPUSCULAR VOLUME 80.4 fL (81-97); MEAN PLATELET VOLUME 7.7 fL (7.4-10.4); MONOCYTES # (AUTO) 0.98 x10^3/uL (0.2-0.8); MONOCYTES % (AUTO) 7 % (2-9); NEUTROPHILS # (AUTO) 11.77 x10^3/uL (1.8-6.8); NEUTROPHILS % (AUTO) 83 % (42-75); PLATELET COUNT 219 x10^3/uL (130-400); RED BLOOD COUNT 5.56 x10^6/uL (4.38-5.82); RED CELL DISTRIBUTION WIDTH 16.9 % (9.4-14.8)
[2017-06-22 05:06] LABS: CALCIUM 8.6 mg/dL (8.5-10.1); CHLORIDE 104 mmol/L (98-107)
[2017-06-22] MEDS: LEVOTHYROXINE 125 MCG TABLET PO SCH (05:07)
[2017-06-22 05:12] LABS: ANION GAP 5 mmol/L (5-15); CREATININE 0.94 mg/dL (0.7-1.3)
[2017-06-22 05:13] LABS: ALANINE AMINOTRANSFERASE 19 U/L (12-78); ALBUMIN 3.9 g/dL (3.4-5.0); ALKALINE PHOSPHATASE 74 U/L (45-117); BILIRUBIN,TOTAL 0.6 mg/dL (0.2-1.0); TOTAL PROTEIN 7.5 g/dL (6.4-8.2)
[2017-06-22] MEDS ORDERED: DOXAZOSIN 2MG TABLET ONE (07:33)
[2017-06-22] MEDS: DOXAZOSIN 2MG TABLET PO SCH (07:34)
[2017-06-22] MEDS: LACTATED RINGERS 1,000 ML IV SCH ×2 (07:35→15:28)
[2017-06-22] MEDS: DIPHENHYDRAMINE 50 MG/ML, 1ML IVPush PRN ×2 (08:39→20:16)
[2017-06-22] MEDS: SODIUM CHLORIDE INHALATION 3%, 4 ML NPPB SCH ×2 (09:00→20:17)
[2017-06-22] MEDS ORDERED: SODIUM CHLORIDE 0.9%, 250ML IVBOLUS ONE (14:30)
[2017-06-22] MEDS: ENOXAPARIN 40 MG/0.4 ML SQ SCH (15:00)
[2017-06-23 01:29] VITALS: BP 143/91
[2017-06-23] MEDS: HYDROmorphone 2 MG/ML, 1ML IVPush PRN ×3 (01:31→09:48)
[2017-06-23] MEDS: ONDANSETRON 2MG/ML, 2ML IVPush PRN ×2 (01:31→05:08)
[2017-06-23] MEDS: LACTATED RINGERS 1,000 ML IV SCH (04:32)
[2017-06-23 05:02] LABS: BASOPHILS # (AUTO) 0.02 x10^3/uL (0-0.1); BASOPHILS % (AUTO) 0 % (0-1); EOSINOPHILS # (AUTO) 0.07 x10^3/uL (0-0.4); EOSINOPHILS % (AUTO) 1 % (1-7); LYMPHOCYTES # (AUTO) 1.79 x10^3/uL (1-3.4); LYMPHOCYTES % (AUTO) 20 % (22-44); MD NO; MEAN CORPUSCULAR HEMOGLOBIN 26.2 pg (27.5-34.5); MEAN CORPUSCULAR HGB CONC 32.2 g/dL (33.2-36.2); MEAN CORPUSCULAR VOLUME 81.2 fL (81-97); MEAN PLATELET VOLUME 7.5 fL (7.4-10.4); MONOCYTES # (AUTO) 0.76 x10^3/uL (0.2-0.8); MONOCYTES % (AUTO) 9 % (2-9); NEUTROPHILS # (AUTO) 6.31 x10^3/uL (1.8-6.8); NEUTROPHILS % (AUTO) 71 % (42-75); PLATELET COUNT 194 x10^3/uL (130-400); RED CELL DISTRIBUTION WIDTH 17.2 % (9.4-14.8)
[2017-06-23] MEDS: LEVOTHYROXINE 125 MCG TABLET PO SCH (05:03)
[2017-06-23 05:05] LABS: CHLORIDE 106 mmol/L (98-107)
[2017-06-23 05:28] LABS: ALANINE AMINOTRANSFERASE 16 U/L (12-78); ALBUMIN 3.6 g/dL (3.4-5.0); ALKALINE PHOSPHATASE 66 U/L (45-117); ANION GAP 9 mmol/L (5-15); BILIRUBIN,TOTAL 0.5 mg/dL (0.2-1.0); CALCIUM 8.4 mg/dL (8.5-10.1); CREATININE 1.06 mg/dL (0.7-1.3)
[2017-06-23 07:11] VITALS: BP 130/84
[2017-06-23] MEDS: SODIUM CHLORIDE INHALATION 3%, 4 ML NPPB SCH (07:16)
[2017-06-23] MEDS: DIPHENHYDRAMINE 50 MG/ML, 1ML IVPush PRN (08:15)
[2017-06-23] MEDS: DOXAZOSIN 2MG TABLET PO SCH (08:16)
[2017-06-23 14:16] VITALS: BP 178/74
== END 2017-06-23 12:00 | disposition home or self-care (01) | DRG 641 ==
LOC: ED 09:24 → EDIP 14:17 → 3NW 15:23
PROVIDERS: ADMIT Internal Medicine Pulmonary Disease; ATTEND Internal Medicine Pulmonary Disease
DX: E86.0 Dehydration (principal); Z93.0 Tracheostomy status; K86.1 Other chronic pancreatitis; I10 Essential (primary) hypertension; E03.9 Hypothyroidism, unspecified; F12.90 Cannabis use, unspecified, uncomplicated; G89.29 Other chronic pain; K21.9 Gastro-esophageal reflux disease without esophagitis; Z85.01 Personal history of malignant neoplasm of esophagus; Z85.818 Personal history of malignant neoplasm of other sites of lip, oral cavity, and pharynx
CPT/HCPCS: 36415; 71045; 74021; 76700; 80053; 81001; 83690; 83735; 84100; 85025; 94640; 96361; 96374; 96375; 96376; J1170; J2405; J1200; J2765; J7030; J7050; J7120

== ENCOUNTER 2017-08-22 09:58 | Inpatient (IN) | payer MEDICARE, MEDICAID ==
[~2017-08-22] VITALS: Ht 185.4 cm; Wt 64.5 kg
[2017-08-22] MEDS ORDERED: SODIUM CHLORIDE FLUSH 10ML SYR IVF ONE (11:00)
[2017-08-22] MEDS ORDERED: ONDANSETRON 2MG/ML, 2ML IVPush ONE (11:00)
[2017-08-22] MEDS ORDERED: FAMOTIDINE 20 MG/2 ML IVP ONE (11:00)
[2017-08-22] MEDS ORDERED: METOCLOPRAMIDE 5 MG/ML, 2ML IVPush ONE (11:00)
[2017-08-22] MEDS ORDERED: SODIUM CHLORIDE 0.9% 1,000 ML IV ONE (11:00)
[2017-08-22] MEDS ORDERED: FENTANYL PF 100 MCG/2ML IV ONE (11:00)
[2017-08-22] MEDS ORDERED: SODIUM CHLORIDE 0.9% 1,000ML IVBOLUS ONE (11:00)
[2017-08-22] MEDS ORDERED: FENTANYL PF 100 MCG/2ML ONE (11:05)
[2017-08-22] MEDS ORDERED: ONDANSETRON 2MG/ML, 2ML ONE (11:06)
[2017-08-22] MEDS ORDERED: FAMOTIDINE 20 MG/2 ML ONE (11:06)
[2017-08-22] MEDS ORDERED: METOCLOPRAMIDE 5 MG/ML, 2ML ONE (11:06)
[2017-08-22] MEDS ORDERED: LABETALOL 5MG/ML, 20ML ONE (11:23)
[2017-08-22 11:24] LABS: MEAN CORPUSCULAR HEMOGLOBIN 26.5 pg (27.5-34.5); MEAN CORPUSCULAR HGB CONC 32.6 g/dL (33.2-36.2); MEAN CORPUSCULAR VOLUME 81.5 fL (81-97); PLATELET COUNT 264 x10^3/uL (130-400); RED BLOOD COUNT 5.69 x10^6/uL (4.38-5.82)
[2017-08-22] MEDS ORDERED: LABETALOL 5MG/ML, 20ML IVPush ONE (11:30)
[2017-08-22 11:37] LABS: ALANINE AMINOTRANSFERASE 18 U/L (12-78); ALBUMIN 4.5 g/dL (3.4-5.0); ANION GAP 7 mmol/L (5-15); CALCIUM 9.1 mg/dL (8.5-10.1); CHLORIDE 103 mmol/L (98-107)
[2017-08-22 11:39] LABS: ALKALINE PHOSPHATASE 89 U/L (45-117); BILIRUBIN,TOTAL 0.7 mg/dL (0.2-1.0); TOTAL PROTEIN 8.8 g/dL (6.4-8.2)
[2017-08-22 11:43] LABS: MD YES
[2017-08-22 11:45] LABS: BAND#(MANUAL) 0.44 x10^3/uL; BANDS%(MANUAL) 2 % (0-7); LYMPH#(MANUAL) 1.33 x10^3/uL (1-3.4); LYMPHS% (MANUAL) 6 % (22-44)
[2017-08-22 11:46] LABS: MONOS#(MANUAL) 1.11 x10^3/uL (0.3-2.7); MONOS% (MANUAL) 5 % (2-9); SEG#(MANUAL) 19.31 x10^3/uL (1.8-6.8); SEGS% (MANUAL) 87 % (42-75)
[2017-08-22 11:47] LABS: MICROSCOPIC AUTO
[2017-08-22 11:47] LABS: <PLATELET ESTIMATE> ADEQUATE; ANISOCYTOSIS 1+; LARGE PLATELETS 1+
[2017-08-22 11:52] LABS: CULTURE INDICATED? NO
[2017-08-22] MEDS ORDERED: hydrALAzine 20 MG/ML, 1ML IV ONE (12:00)
[2017-08-22] MEDS ORDERED: hydrALAzine 20 MG/ML, 1ML ONE (12:08)
[2017-08-22] MEDS ORDERED: LEVOFLOXACIN/PMX 750MG/150ML 150 ML IV ONE (12:30)
[2017-08-22 12:35] LABS: TROPONIN I < 0.015 ng/mL (0.000-0.045)
[2017-08-22] MEDS ORDERED: LEVOFLOXACIN/PMX 750MG/150ML 150 ML ONE (12:43)
[2017-08-22] MEDS ORDERED: PROMETHAZINE 25 MG/ML, 1ML IM PRN (13:30)
[2017-08-22] MEDS ORDERED: DIPHENHYDRAMINE 25 MG CAPSULE PO PRN (13:30)
[2017-08-22] MEDS ORDERED: LACTATED RINGERS 1,000 ML IV SCH (13:30)
[2017-08-22] MEDS ORDERED: LABETALOL 5MG/ML, 20ML IVPush PRN (13:30)
[2017-08-22] MEDS ORDERED: ONDANSETRON 2MG/ML, 2ML IVPush PRN (13:30)
[2017-08-22] MEDS ORDERED: GUAIFENESIN/DM 200-20MG, 10ML UDC PO PRN (13:30)
[2017-08-22] MEDS ORDERED: ACETAMINOPHEN 325 MG TABLET PO PRN (13:30)
[2017-08-22] MEDS: AMLODIPINE 5 MG TABLET PO SCH (14:57)
[2017-08-22] MEDS: ENALAPRILAT 1.25 MG/ML, 2ML IVPush PRN ×3 (14:57→16:08)
[2017-08-22] MEDS: ONDANSETRON ODT 4 MG PO PRN ×3 (15:02→21:34)
[2017-08-22 15:04] VITALS: BP 187/126
[2017-08-22 15:23] VITALS: BP 188/131
[2017-08-22 16:02] VITALS: BP 190/134
[2017-08-22] MEDS: OXYcodone IR 5MG TABLET PO SCH ×2 (16:08→21:34)
[2017-08-22 16:48] VITALS: BP 178/128
[2017-08-22] MEDS ORDERED: hydrALAzine 20 MG/ML, 1ML IV PRN (17:30)
[2017-08-22 17:35] VITALS: BP 124/84
[2017-08-22] MEDS ORDERED: KETOROLAC 30 MG/1 ML IVPush PRN (19:00)
[2017-08-22] MEDS ORDERED: PROCHLORPERAZINE 5 MG/ML, 2ML IVPush PRN (19:00)
[2017-08-22] MEDS: HYDROcodone/APAP 7.5-325MG/15ML UDC PO PRN (19:36)
[2017-08-22 20:14] VITALS: BP 120/83
[2017-08-22] MEDS: LACTATED RINGERS 1,000 ML IV SCH (21:33)
[2017-08-23 01:40] VITALS: BP 99/65
[2017-08-23] MEDS: HYDROcodone/APAP 7.5-325MG/15ML UDC PO PRN ×2 (02:13→15:19)
[2017-08-23] MEDS: ONDANSETRON ODT 4 MG PO PRN ×3 (02:13→22:16)
[2017-08-23] MEDS: LACTATED RINGERS 1,000 ML IV SCH ×2 (02:14→22:19)
[2017-08-23 05:46] LABS: BASOPHILS # (AUTO) 0.02 x10^3/uL (0-0.1); BASOPHILS % (AUTO) 0 % (0-1); EOSINOPHILS # (AUTO) 0.02 x10^3/uL (0-0.4); EOSINOPHILS % (AUTO) 0 % (1-7); LYMPHOCYTES # (AUTO) 1.23 x10^3/uL (1-3.4); LYMPHOCYTES % (AUTO) 10 % (22-44); MD NO; MEAN CORPUSCULAR HEMOGLOBIN 26.7 pg (27.5-34.5); MEAN CORPUSCULAR HGB CONC 32.8 g/dL (33.2-36.2); MEAN CORPUSCULAR VOLUME 81.5 fL (81-97); MEAN PLATELET VOLUME 7.6 fL (7.4-10.4); MONOCYTES # (AUTO) 0.82 x10^3/uL (0.2-0.8); MONOCYTES % (AUTO) 7 % (2-9); NEUTROPHILS # (AUTO) 9.96 x10^3/uL (1.8-6.8); NEUTROPHILS % (AUTO) 83 % (42-75); PLATELET COUNT 231 x10^3/uL (130-400); RED BLOOD COUNT 5.09 x10^6/uL (4.38-5.82); RED CELL DISTRIBUTION WIDTH 15.1 % (9.4-14.8)
[2017-08-23 05:48] LABS: ANION GAP 7 mmol/L (5-15); CALCIUM 8.8 mg/dL (8.5-10.1); CHLORIDE 104 mmol/L (98-107); CREATININE 0.97 mg/dL (0.7-1.3)
[2017-08-23] MEDS: OXYcodone IR 5MG TABLET PO SCH ×4 (06:02→22:13)
[2017-08-23 07:00] VITALS: BP 132/89
[2017-08-23] MEDS: SODIUM CHLORIDE INHALATION 3%, 4 ML NPPB SCH ×2 (08:30→19:32)
[2017-08-23] MEDS: METOCLOPRAMIDE 5 MG/ML, 2ML IVPush PRN ×2 (08:46→14:54)
[2017-08-23] MEDS: AMLODIPINE 5 MG TABLET PO SCH (09:30)
[2017-08-23] MEDS: DOXAZOSIN 2MG TABLET PO SCH (09:30)
[2017-08-23] MEDS ORDERED: LEVOFLOXACIN/PMX 500MG/100ML 100 ML IV SCH (10:00)
[2017-08-23] MEDS: ENOXAPARIN 40 MG/0.4 ML SQ SCH (10:00)
[2017-08-23 13:38] VITALS: BP 90/55
[2017-08-23 13:56] VITALS: BP 123/81
[2017-08-23 16:10] VITALS: BP 128/78
[2017-08-23 19:50] VITALS: BP 121/76
[2017-08-23] MEDS ORDERED: ONDANSETRON 2MG/ML, 2ML ONE (22:10)
[2017-08-24] MEDS ORDERED: DIPHENHYDRAMINE 12.5MG/5ML, 10ML UDC PO PRN (01:00)
[2017-08-24 02:13] VITALS: BP 136/95
[2017-08-24] MEDS: HYDROcodone/APAP 7.5-325MG/15ML UDC PO PRN (02:15)
[2017-08-24] MEDS: LACTATED RINGERS 1,000 ML IV SCH ×2 (03:15→07:58)
[2017-08-24 04:55] LABS: BASOPHILS # (AUTO) 0.02 x10^3/uL (0-0.1); BASOPHILS % (AUTO) 0 % (0-1); EOSINOPHILS # (AUTO) 0.03 x10^3/uL (0-0.4); EOSINOPHILS % (AUTO) 0 % (1-7); LYMPHOCYTES # (AUTO) 1.33 x10^3/uL (1-3.4); LYMPHOCYTES % (AUTO) 18 % (22-44); MD NO; MEAN CORPUSCULAR HEMOGLOBIN 26.1 pg (27.5-34.5); MEAN CORPUSCULAR HGB CONC 31.9 g/dL (33.2-36.2); MEAN CORPUSCULAR VOLUME 81.8 fL (81-97); MEAN PLATELET VOLUME 7.5 fL (7.4-10.4); MONOCYTES # (AUTO) 0.73 x10^3/uL (0.2-0.8); MONOCYTES % (AUTO) 10 % (2-9); NEUTROPHILS # (AUTO) 5.39 x10^3/uL (1.8-6.8); NEUTROPHILS % (AUTO) 72 % (42-75); PLATELET COUNT 211 x10^3/uL (130-400); RED BLOOD COUNT 4.81 x10^6/uL (4.38-5.82); RED CELL DISTRIBUTION WIDTH 15.1 % (9.4-14.8)
[2017-08-24 05:02] LABS: ALBUMIN 3.3 g/dL (3.4-5.0); ANION GAP 6 mmol/L (5-15); CALCIUM 8.1 mg/dL (8.5-10.1); CHLORIDE 108 mmol/L (98-107)
[2017-08-24 05:06] LABS: ALANINE AMINOTRANSFERASE 15 U/L (12-78); ALKALINE PHOSPHATASE 57 U/L (45-117); BILIRUBIN,TOTAL 0.7 mg/dL (0.2-1.0); CREATININE 1.07 mg/dL (0.7-1.3); TOTAL PROTEIN 6.5 g/dL (6.4-8.2)
[2017-08-24] MEDS: OXYcodone IR 5MG TABLET PO SCH ×2 (05:48→11:12)
[2017-08-24] MEDS: AMLODIPINE 5 MG TABLET PO SCH (09:00)
[2017-08-24 09:23] VITALS: BP 117/78
[2017-08-24] MEDS: DOXAZOSIN 2MG TABLET PO SCH (09:29)
[2017-08-24] MEDS: ENOXAPARIN 40 MG/0.4 ML SQ SCH (10:00)
== END 2017-08-24 11:43 | disposition home or self-care (01) | DRG 871 ==
LOC: ED 10:51 → EDIP 12:44 → 4WST 14:03 → 3NW 08-23 16:05
PROVIDERS: ADMIT Internal Medicine; ATTEND Internal Medicine
DX: A41.9 Sepsis, unspecified organism (principal); K85.90 Acute pancreatitis without necrosis or infection, unspecified; J69.0 Pneumonitis due to inhalation of food and vomit; E88.89 Other specified metabolic disorders; K86.1 Other chronic pancreatitis; I16.9 Hypertensive crisis, unspecified; E03.9 Hypothyroidism, unspecified; E86.0 Dehydration; F12.90 Cannabis use, unspecified, uncomplicated; G89.4 Chronic pain syndrome; I10 Essential (primary) hypertension; J47.9 Bronchiectasis, uncomplicated; K21.9 Gastro-esophageal reflux disease without esophagitis; Z85.818 Personal history of malignant neoplasm of other sites of lip, oral cavity, and pharynx
CPT/HCPCS: 36415; 71045; 74022; 74176; 80048; 80053; 81001; 83605; 83690; 83735; 84100; 84145; 84443; 84484; 85025; 87040; 87070; 93005; 94640; 96361; 96365; 96375; J1956; J2405; J3010; Q0162; J0360; J2765; J7030; J7120; S0028

== ENCOUNTER 2018-04-17 14:42 | Emergency (ER) | payer MEDICARE, MEDICAID ==
[~2018-04-17] VITALS: Ht 185.4 cm; Wt 65.3 kg
[~2018-04-17 14:42] MED LIST changes: -AMLO5TAB2 PO; +AMLO5TAB7 PO; +CIPR500T3 PO; -SENN1TAB7 PO; +SENN1TAB8 PO
[2018-04-17 14:54] VITALS: BP 119/83
[2018-04-17] MEDS ORDERED: SODIUM CHLORIDE FLUSH 10ML SYR IVF ONE (15:00)
[2018-04-17] MEDS ORDERED: OXYcodone/APAP 5/325MG TABLET ONE (15:54)
[2018-04-17] MEDS ORDERED: OXYcodone/APAP 5/325MG TABLET PO ONE (16:00)
== END 2018-04-17 17:03 | disposition home or self-care (01) ==
LOC: ED 16:57
DX: R51 Headache (principal); H53.149 Visual discomfort, unspecified; Z76.0 Encounter for issue of repeat prescription; I10 Essential (primary) hypertension; K21.9 Gastro-esophageal reflux disease without esophagitis; E03.9 Hypothyroidism, unspecified; Z87.891 Personal history of nicotine dependence
CPT/HCPCS: 99283

== ENCOUNTER 2018-05-27 03:13 | Inpatient (IN) | payer MEDICARE, MEDICAID ==
[~2018-05-27] VITALS: Ht 182.9 cm; Wt 59.0 kg
[~2018-05-27 03:13] MED LIST changes: +AMLO-150 PO; -AMLO5TAB7 PO; +METR-142 PO; -METR500T8 PO
[2018-05-27] MEDS ORDERED: ALBUTEROL SULFATE 2.5 MG/3 ML ONE (03:58)
[2018-05-27] MEDS ORDERED: HYDROmorphone 2 MG/ML, 1ML IM ONE (04:00)
[2018-05-27] MEDS ORDERED: ALBUTEROL SULFATE 2.5 MG/3 ML NPPB ONE (04:00)
[2018-05-27] MEDS ORDERED: ONDANSETRON ODT 4 MG PO ONE (04:00)
[2018-05-27] MEDS ORDERED: SODIUM CHLORIDE INHALATION 3%, 4 ML NPPB STA (04:05)
[2018-05-27] MEDS ORDERED: HYDROmorphone 2 MG/ML, 1ML ONE ×2 (04:06→05:51)
[2018-05-27] MEDS ORDERED: ONDANSETRON ODT 8 MG ONE (04:07)
--- NOTE | 2018-05-27 04:11 | NUR ---
PT MOTHER MAURY [phone]
[2018-05-27 04:13] LABS: MEAN CORPUSCULAR HEMOGLOBIN 27.6 pg (27.5-34.5); MEAN CORPUSCULAR HGB CONC 33.2 g/dL (33.2-36.2); MEAN PLATELET VOLUME 7.4 fL (7.4-10.4); PLATELET COUNT 228 x10^3/uL (130-400); RED BLOOD COUNT 5.13 x10^6/uL (4.38-5.82); RED CELL DISTRIBUTION WIDTH 14.2 % (9.4-14.8)
[2018-05-27 04:23] LABS: ALBUMIN 3.5 g/dL (3.4-5.0); ANION GAP 6 mmol/L (5-15); CALCIUM 8.8 mg/dL (8.5-10.1); CHLORIDE 99 mmol/L (98-107)
[2018-05-27 04:26] LABS: ALANINE AMINOTRANSFERASE 16 U/L (12-78); ALKALINE PHOSPHATASE 81 U/L (45-117); BILIRUBIN,TOTAL 1.2 mg/dL (0.2-1.0); CREATININE 1.14 mg/dL (0.7-1.3); TOTAL PROTEIN 7.9 g/dL (6.4-8.2)
[2018-05-27] MEDS ORDERED: AZITHROMYCIN 500 MG in SODIUM CHLORIDE 0.9% 250 ML IV ONE (05:00)
[2018-05-27] MEDS ORDERED: SODIUM CHLORIDE 0.9% 1,000ML IVBOLUS ONE (05:00)
[2018-05-27] MEDS ORDERED: CEFTRIAXONE PMX 1GM/50ML 50 ML IV ONE (05:00)
--- NOTE | 2018-05-27 05:26 | NUR ---
BLOOD CULTURES X2 DRAWN, IV FLUIDS INFUSING AT THIS TIME. IV ABX STARTED.
[2018-05-27] MEDS ORDERED: CEFTRIAXONE PMX 1GM/50ML 50 ML ONE (05:27)
[2018-05-27 05:32] LABS: BASOPHILS % (AUTO) 0 % (0-1); EOSINOPHILS # (AUTO) 0.03 x10^3/uL (0-0.4); EOSINOPHILS % (AUTO) 0 % (1-7); LYMPHOCYTES # (AUTO) 0.76 x10^3/uL (1-3.4); LYMPHOCYTES % (AUTO) 2 % (22-44); MD SCAN; MONOCYTES # (AUTO) 0.72 x10^3/uL (0.2-0.8); MONOCYTES % (AUTO) 2 % (2-9); NEUTROPHILS # (AUTO) 29.97 x10^3/uL (1.8-6.8); NEUTROPHILS % (AUTO) 95 % (42-75)
[2018-05-27] MEDS ORDERED: HYDROmorphone 2 MG/ML, 1ML IV ONE (06:00)
--- NOTE | 2018-05-27 06:12 | NUR ---
2ND IV ABX STARTED AND PT MEDICATED FOR PAIN 01/06. WARM BLANKET PROVIDED REQUESTED.
[2018-05-27] MEDS ORDERED: ONDANSETRON 2MG/ML, 2ML IVPush PRN (06:30)
[2018-05-27] MEDS ORDERED: HYDROmorphone 2 MG/ML, 1ML IVPush PRN (06:30)
[2018-05-27 07:14] VITALS: BP 107/70
[2018-05-27] MEDS ORDERED: ONDANSETRON ODT 8 MG SL PRN (07:30)
[2018-05-27] MEDS: ENOXAPARIN 40 MG/0.4 ML SQ SCH (08:00)
[2018-05-27] MEDS ORDERED: GUAIFENESIN/DM 200-20MG, 10ML UDC PO PRN (08:00)
[2018-05-27] MEDS ORDERED: BISACODYL 10 MG SUPP PR PRN (08:00)
[2018-05-27] MEDS ORDERED: POLYETHYLENE GLYCOL 17 GM PACKET PO PRN (08:00)
[2018-05-27] MEDS ORDERED: hydrALAzine 20 MG/ML, 1ML IVPush PRN (08:00)
[2018-05-27] MEDS: METRONIDAZOLE PMX 500MG/100ML 100 ML IV SCH ×2 (08:52→17:35)
[2018-05-27] MEDS: SODIUM CHLORIDE 0.9% 1,000 ML IV SCH ×2 (08:52→23:40)
[2018-05-27] MEDS: SENNA/DOCUSATE TABLET PO SCH (09:00)
[2018-05-27] MEDS ORDERED: SODIUM CHLORIDE INHALATION 3%, 4 ML NPPB ONE (09:00)
[2018-05-27] MEDS: FAMOTIDINE 20 MG TABLET PO SCH ×2 (09:00→21:00)
[2018-05-27 09:02] LABS: FREE T4 (FREE THYROXINE) 1.74 ng/dL (0.76-1.46); THYROID STIMULATING HORMONE 2.22 mIU/L (0.358-3.740)
[2018-05-27] MEDS ORDERED: LEVOTHYROXINE 112 MCG TABLET ONE (09:13)
[2018-05-27] MEDS: LEVOTHYROXINE 112 MCG TABLET PO SCH (09:16)
[2018-05-27] MEDS: DOXAZOSIN 2MG TABLET PO SCH (09:16)
[2018-05-27 09:34] LABS: HCT (SEDRATE) 42.6 % (39.2-51.8)
[2018-05-27] MEDS: LEVOFLOXACIN/PMX 750MG/150ML 150 ML IV SCH (10:56)
[2018-05-27] MEDS: OXYcodone IR 5MG TABLET PO SCH ×3 (11:14→23:40)
[2018-05-27] MEDS: ONDANSETRON 2MG/ML, 2ML IVPush PRN (13:26)
[2018-05-27 15:11] VITALS: BP 99/63
[2018-05-27 19:11] VITALS: BP 122/84
[2018-05-27] MEDS: DIPHENHYDRAMINE 25 MG CAPSULE PO PRN (19:47)
[2018-05-27] MEDS: SODIUM CHLORIDE INHALATION 3%, 4 ML NPPB SCH (21:45)
[2018-05-28] MEDS: METRONIDAZOLE PMX 500MG/100ML 100 ML IV SCH ×3 (00:48→17:11)
[2018-05-28 01:26] VITALS: BP 104/66
[2018-05-28 04:32] LABS: BASOPHILS % (AUTO) 0 % (0-1); EOSINOPHILS # (AUTO) 0.06 x10^3/uL (0-0.4); EOSINOPHILS % (AUTO) 0 % (1-7); LYMPHOCYTES # (AUTO) 0.92 x10^3/uL (1-3.4); LYMPHOCYTES % (AUTO) 6 % (22-44); MD NO; MEAN CORPUSCULAR HEMOGLOBIN 27.5 pg (27.5-34.5); MEAN CORPUSCULAR HGB CONC 32.9 g/dL (33.2-36.2); MEAN CORPUSCULAR VOLUME 83.7 fL (81-97); MEAN PLATELET VOLUME 7.4 fL (7.4-10.4); MONOCYTES # (AUTO) 0.93 x10^3/uL (0.2-0.8); MONOCYTES % (AUTO) 6 % (2-9); NEUTROPHILS # (AUTO) 14.22 x10^3/uL (1.8-6.8); NEUTROPHILS % (AUTO) 88 % (42-75); PLATELET COUNT 250 x10^3/uL (130-400); RED BLOOD COUNT 4.62 x10^6/uL (4.38-5.82); RED CELL DISTRIBUTION WIDTH 13.9 % (9.4-14.8)
[2018-05-28 04:42] LABS: ANION GAP 8 mmol/L (5-15); CALCIUM 8.2 mg/dL (8.5-10.1); CHLORIDE 105 mmol/L (98-107)
[2018-05-28] MEDS: ONDANSETRON 2MG/ML, 2ML IVPush PRN (05:28)
[2018-05-28] MEDS: OXYcodone IR 5MG TABLET PO SCH ×4 (05:56→22:59)
[2018-05-28] MEDS: LEVOTHYROXINE 112 MCG TABLET PO SCH (05:57)
[2018-05-28] MEDS ORDERED: LEVOTHYROXINE 112 MCG TABLET PO SCH (06:00)
[2018-05-28] MEDS ORDERED: LEVOTHYROXINE 125 MCG TABLET PO SCH (06:00)
[2018-05-28] MEDS: ENOXAPARIN 40 MG/0.4 ML SQ SCH (08:00)
[2018-05-28] MEDS: DOXAZOSIN 2MG TABLET PO SCH (08:03)
[2018-05-28] MEDS: FAMOTIDINE 20 MG TABLET PO SCH ×2 (08:04→21:00)
[2018-05-28] MEDS: SENNA/DOCUSATE TABLET PO SCH (08:04)
[2018-05-28 09:21] VITALS: BP 98/67
[2018-05-28] MEDS: SODIUM CHLORIDE INHALATION 3%, 4 ML NPPB SCH ×2 (09:35→20:43)
[2018-05-28] MEDS: SODIUM CHLORIDE 0.9% 1,000 ML IV SCH ×2 (09:39→23:00)
[2018-05-28] MEDS: LEVOFLOXACIN/PMX 750MG/150ML 150 ML IV SCH (11:25)
[2018-05-28 14:50] VITALS: BP 92/60
[2018-05-28 19:59] VITALS: BP 106/70
[2018-05-28] MEDS: DIPHENHYDRAMINE 25 MG CAPSULE PO PRN (21:38)
[2018-05-29] MEDS: METRONIDAZOLE PMX 500MG/100ML 100 ML IV SCH ×3 (00:57→18:07)
[2018-05-29 03:34] VITALS: BP 127/84
[2018-05-29 04:45] LABS: MEAN CORPUSCULAR HGB CONC 32.3 g/dL (33.2-36.2); MEAN CORPUSCULAR VOLUME 83.7 fL (81-97); MEAN PLATELET VOLUME 6.9 fL (7.4-10.4); PLATELET COUNT 258 x10^3/uL (130-400); RED CELL DISTRIBUTION WIDTH 13.9 % (9.4-14.8)
[2018-05-29 04:49] LABS: ANION GAP 7 mmol/L (5-15); CALCIUM 8.3 mg/dL (8.5-10.1); CHLORIDE 107 mmol/L (98-107); CREATININE 0.86 mg/dL (0.7-1.3)
[2018-05-29] MEDS: OXYcodone IR 5MG TABLET PO SCH ×4 (05:04→20:28)
[2018-05-29] MEDS: LEVOTHYROXINE 112 MCG TABLET PO SCH (05:06)
[2018-05-29 05:50] LABS: BASOPHILS # (AUTO) 0.03 x10^3/uL (0-0.1); BASOPHILS % (AUTO) 0 % (0-1); EOSINOPHILS # (AUTO) 0.28 x10^3/uL (0-0.4); EOSINOPHILS % (AUTO) 2 % (1-7); LYMPHOCYTES # (AUTO) 0.93 x10^3/uL (1-3.4); LYMPHOCYTES % (AUTO) 8 % (22-44); MD SCAN; MONOCYTES % (AUTO) 8 % (2-9); NEUTROPHILS % (AUTO) 82 % (42-75)
[2018-05-29 06:49] VITALS: BP 117/80
[2018-05-29] MEDS: ENOXAPARIN 40 MG/0.4 ML SQ SCH (08:00)
[2018-05-29] MEDS: DOXAZOSIN 2MG TABLET PO SCH (08:58)
[2018-05-29] MEDS: FAMOTIDINE 20 MG TABLET PO SCH ×2 (08:59→20:28)
[2018-05-29] MEDS: SENNA/DOCUSATE TABLET PO SCH (09:00)
[2018-05-29] MEDS: SODIUM CHLORIDE INHALATION 3%, 4 ML NPPB SCH ×2 (09:00→21:00)
[2018-05-29] MEDS: SODIUM CHLORIDE 0.9% 1,000 ML IV SCH ×2 (09:02→22:39)
[2018-05-29] MEDS: LEVOFLOXACIN/PMX 750MG/150ML 150 ML IV SCH (11:47)
[2018-05-29] MEDS: ONDANSETRON 2MG/ML, 2ML IVPush PRN (12:35)
[2018-05-29 14:08] VITALS: BP 91/60
[2018-05-29 21:06] VITALS: BP 94/60
[2018-05-30] VITALS (7 sets, daily range): BP systolic 107–191; BP diastolic 72–146
[2018-05-30] MEDS: METRONIDAZOLE PMX 500MG/100ML 100 ML IV SCH ×2 (01:17→09:01)
[2018-05-30 05:03] LABS: BASOPHILS # (AUTO) 0.04 x10^3/uL (0-0.1); BASOPHILS % (AUTO) 0 % (0-1); EOSINOPHILS # (AUTO) 0.26 x10^3/uL (0-0.4); EOSINOPHILS % (AUTO) 3 % (1-7); LYMPHOCYTES # (AUTO) 1.45 x10^3/uL (1-3.4); LYMPHOCYTES % (AUTO) 15 % (22-44); MD NO; MEAN CORPUSCULAR HEMOGLOBIN 27.3 pg (27.5-34.5); MEAN CORPUSCULAR HGB CONC 32.9 g/dL (33.2-36.2); MEAN CORPUSCULAR VOLUME 83.2 fL (81-97); MEAN PLATELET VOLUME 7.2 fL (7.4-10.4); MONOCYTES # (AUTO) 1.04 x10^3/uL (0.2-0.8); MONOCYTES % (AUTO) 11 % (2-9); NEUTROPHILS # (AUTO) 7.04 x10^3/uL (1.8-6.8); NEUTROPHILS % (AUTO) 72 % (42-75); PLATELET COUNT 287 x10^3/uL (130-400)
[2018-05-30 05:12] LABS: ANION GAP 5 mmol/L (5-15); CHLORIDE 109 mmol/L (98-107); CREATININE 0.85 mg/dL (0.7-1.3)
[2018-05-30] MEDS: OXYcodone IR 5MG TABLET PO SCH ×4 (05:44→20:07)
[2018-05-30] MEDS: LEVOTHYROXINE 112 MCG TABLET PO SCH (05:44)
[2018-05-30] MEDS: ENOXAPARIN 40 MG/0.4 ML SQ SCH (08:00)
[2018-05-30] MEDS: DOXAZOSIN 2MG TABLET PO SCH (08:08)
[2018-05-30] MEDS: SENNA/DOCUSATE TABLET PO SCH (08:10)
[2018-05-30] MEDS: FAMOTIDINE 20 MG TABLET PO SCH ×2 (08:10→19:23)
[2018-05-30] MEDS: SODIUM CHLORIDE 0.9% 1,000 ML IV SCH ×2 (09:04→20:07)
[2018-05-30] MEDS: ONDANSETRON 2MG/ML, 2ML IVPush PRN ×2 (09:04→15:53)
[2018-05-30] MEDS: SODIUM CHLORIDE INHALATION 3%, 4 ML NPPB SCH ×2 (09:35→20:24)
[2018-05-30] MEDS: LEVOFLOXACIN/PMX 750MG/150ML 150 ML IV SCH (11:17)
[2018-05-30] MEDS: AMPICILLIN/SULBACTAM 3 GM in SODIUM CHLORIDE 0.9% 100 ML IV SCH (18:18)
[2018-05-30] MEDS: PANTOPRAZOLE 40 MG IV IVPush SCH (20:07)
[2018-05-30] MEDS: DIPHENHYDRAMINE 25 MG CAPSULE PO PRN (20:12)
[2018-05-31] VITALS (11 sets, daily range): BP systolic 81–171; BP diastolic 48–130
[2018-05-31] MEDS: AMPICILLIN/SULBACTAM 3 GM in SODIUM CHLORIDE 0.9% 100 ML IV SCH ×4 (00:19→18:08)
[2018-05-31 05:02] LABS: BASOPHILS # (AUTO) 0.03 x10^3/uL (0-0.1); BASOPHILS % (AUTO) 0 % (0-1); EOSINOPHILS # (AUTO) 0.21 x10^3/uL (0-0.4); EOSINOPHILS % (AUTO) 2 % (1-7); LYMPHOCYTES # (AUTO) 1.54 x10^3/uL (1-3.4); LYMPHOCYTES % (AUTO) 16 % (22-44); MD NO; MEAN CORPUSCULAR HEMOGLOBIN 27.2 pg (27.5-34.5); MEAN CORPUSCULAR HGB CONC 32.7 g/dL (33.2-36.2); MEAN PLATELET VOLUME 6.6 fL (7.4-10.4); MONOCYTES # (AUTO) 0.83 x10^3/uL (0.2-0.8); MONOCYTES % (AUTO) 9 % (2-9); NEUTROPHILS # (AUTO) 6.98 x10^3/uL (1.8-6.8); NEUTROPHILS % (AUTO) 73 % (42-75); PLATELET COUNT 316 x10^3/uL (130-400); RED CELL DISTRIBUTION WIDTH 14.3 % (9.4-14.8)
[2018-05-31 05:12] LABS: ALBUMIN 3.2 g/dL (3.4-5.0); ANION GAP 5 mmol/L (5-15); CHLORIDE 107 mmol/L (98-107)
[2018-05-31 05:13] LABS: CREATININE 0.93 mg/dL (0.7-1.3)
[2018-05-31] MEDS: OXYcodone IR 5MG TABLET PO SCH ×4 (06:03→20:24)
[2018-05-31] MEDS: LEVOTHYROXINE 112 MCG TABLET PO SCH (06:03)
[2018-05-31] MEDS: DOXAZOSIN 2MG TABLET PO SCH (06:13)
[2018-05-31] MEDS: ONDANSETRON 2MG/ML, 2ML IVPush PRN (06:13)
[2018-05-31] MEDS: PANTOPRAZOLE 40 MG IV IVPush SCH ×2 (07:57→20:23)
[2018-05-31] MEDS: ENOXAPARIN 40 MG/0.4 ML SQ SCH (07:57)
[2018-05-31] MEDS: FAMOTIDINE 20 MG TABLET PO SCH (07:57)
[2018-05-31] MEDS: SENNA/DOCUSATE TABLET PO SCH (07:58)
[2018-05-31] MEDS: SODIUM CHLORIDE INHALATION 3%, 4 ML NPPB SCH ×2 (09:00→21:14)
[2018-05-31] MEDS: SODIUM CHLORIDE 0.9% 1,000 ML IV SCH (11:53)
[2018-05-31] MEDS ORDERED: hydrALAzine 20 MG/ML, 1ML IVPush PRN (16:00)
[2018-05-31] MEDS: DIPHENHYDRAMINE 25 MG CAPSULE PO PRN (21:43)
[2018-06-01] VITALS (8 sets, daily range): BP systolic 87–137; BP diastolic 59–84
[2018-06-01] MEDS: AMPICILLIN/SULBACTAM 3 GM in SODIUM CHLORIDE 0.9% 100 ML IV SCH ×3 (00:02→11:59)
[2018-06-01 05:27] LABS: BASOPHILS # (AUTO) 0.03 x10^3/uL (0-0.1); BASOPHILS % (AUTO) 0 % (0-1); EOSINOPHILS # (AUTO) 0.17 x10^3/uL (0-0.4); EOSINOPHILS % (AUTO) 2 % (1-7); LYMPHOCYTES # (AUTO) 1.52 x10^3/uL (1-3.4); LYMPHOCYTES % (AUTO) 21 % (22-44); MD NO; MEAN CORPUSCULAR HEMOGLOBIN 27.3 pg (27.5-34.5); MEAN CORPUSCULAR HGB CONC 32.9 g/dL (33.2-36.2); MEAN CORPUSCULAR VOLUME 83.1 fL (81-97); MEAN PLATELET VOLUME 6.8 fL (7.4-10.4); MONOCYTES # (AUTO) 0.64 x10^3/uL (0.2-0.8); MONOCYTES % (AUTO) 9 % (2-9); NEUTROPHILS # (AUTO) 5.06 x10^3/uL (1.8-6.8); NEUTROPHILS % (AUTO) 68 % (42-75); PLATELET COUNT 313 x10^3/uL (130-400); RED BLOOD COUNT 4.78 x10^6/uL (4.38-5.82)
[2018-06-01 05:34] LABS: ANION GAP 7 mmol/L (5-15); CALCIUM 8.4 mg/dL (8.5-10.1); CHLORIDE 108 mmol/L (98-107); CREATININE 0.96 mg/dL (0.7-1.3)
[2018-06-01] MEDS: OXYcodone IR 5MG TABLET PO SCH ×3 (06:17→15:56)
[2018-06-01] MEDS: LEVOTHYROXINE 112 MCG TABLET PO SCH (06:17)
[2018-06-01] MEDS: SODIUM CHLORIDE INHALATION 3%, 4 ML NPPB SCH (07:59)
[2018-06-01] MEDS: ENOXAPARIN 40 MG/0.4 ML SQ SCH (08:00)
[2018-06-01] MEDS: PANTOPRAZOLE 40 MG IV IVPush SCH (08:07)
[2018-06-01] MEDS: SENNA/DOCUSATE TABLET PO SCH (09:00)
[2018-06-01] MEDS: DOXAZOSIN 2MG TABLET PO SCH (09:00)
[2018-06-01] MEDS ORDERED: MAG355OR14 PO (13:15)
[2018-06-01] MEDS ORDERED: GUAI5SYR PO (13:15)
[2018-06-01] MEDS ORDERED: AMOX250S20 PO (13:15)
== END 2018-06-01 16:15 | disposition home or self-care (01) | DRG 871 ==
LOC: ED 04:45 → EDIP 06:06 → 4EST 06:42 → 3NW 09:35
PROVIDERS: ADMIT Hospitalist; ATTEND Hospitalist
DX: A41.9 Sepsis, unspecified organism (principal); J69.0 Pneumonitis due to inhalation of food and vomit; J15.9 Unspecified bacterial pneumonia; E03.9 Hypothyroidism, unspecified; E86.0 Dehydration; F12.90 Cannabis use, unspecified, uncomplicated; G89.29 Other chronic pain; K80.20 Calculus of gallbladder without cholecystitis without obstruction; I10 Essential (primary) hypertension; K21.0 Gastro-esophageal reflux disease with esophagitis; Z92.21 Personal history of antineoplastic chemotherapy; Z92.3 Personal history of irradiation; Z88.8 Allergy status to other drugs, medicaments and biological substances; Z85.22 Personal history of malignant neoplasm of nasal cavities, middle ear, and accessory sinuses; Z85.818 Personal history of malignant neoplasm of other sites of lip, oral cavity, and pharynx; Z79.899 Other long term (current) drug therapy
CPT/HCPCS: 36415; 74018; 74022; 80048; 80053; 82040; 82962; 83605; 83690; 84145; 84439; 84443; 85025; 85651; 87040; 87070; 87205; 94640; 96365; 96372; 99291; G0378; J0295; J0456; J0696; J1170; J1956; J2405; Q0162; C9113; J0360; J7030; J7050; Q0163

== ENCOUNTER 2018-09-30 14:50 | Inpatient (IN) | payer MEDICARE, MEDICAID ==
[~2018-09-30] VITALS: Ht 185.4 cm; Wt 59.0 kg
[~2018-09-30 14:50] MED LIST changes: +AMOX250S20 PO; +GUAI5SYR PO; +MAG355OR14 PO; -METR-142 PO; +METR-90 PO; +SENN-177 PO; -SENN1TAB8 PO
--- NOTE | 2018-09-30 15:47 | NUR ---
TO ROOM 02 AT 1540
--- NOTE | 2018-09-30 16:00 | NUR ---
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
--- NOTE | 2018-09-30 16:13 | NUR ---
ERP TO THE BS
[2018-09-30] MEDS ORDERED: ONDANSETRON 2MG/ML, 2ML IVPush ONE (16:30)
[2018-09-30] MEDS ORDERED: SODIUM CHLORIDE FLUSH 10ML SYR IVF ONE (16:30)
[2018-09-30] MEDS ORDERED: SODIUM CHLORIDE 0.9% 1,000ML IVBOLUS ONE (16:30)
[2018-09-30] MEDS ORDERED: ONDANSETRON 2MG/ML, 2ML ONE (16:34)
[2018-09-30] MEDS ORDERED: HYDROmorphone 2 MG/ML, 1ML ONE ×2 (16:34→17:16)
[2018-09-30] MEDS: HYDROmorphone 1 MG/ML, 1ML INJ IVPush PRN ×2 (16:45→17:21)
[2018-09-30 17:09] LABS: MEAN CORPUSCULAR HEMOGLOBIN 26.1 pg (27.5-34.5); MEAN CORPUSCULAR HGB CONC 32.8 g/dL (33.2-36.2); MEAN CORPUSCULAR VOLUME 79.4 fL (81-97); MEAN PLATELET VOLUME 7.2 fL (7.4-10.4); PLATELET COUNT 322 x10^3/uL (130-400); RED BLOOD COUNT 5.02 x10^6/uL (4.38-5.82); RED CELL DISTRIBUTION WIDTH 14.6 % (9.4-14.8)
[2018-09-30 17:16] LABS: ALANINE AMINOTRANSFERASE 17 U/L (12-78); ALBUMIN 3.5 g/dL (3.4-5.0); ANION GAP 8 mmol/L (5-15); CALCIUM 9.2 mg/dL (8.5-10.1); CHLORIDE 102 mmol/L (98-107)
[2018-09-30 17:19] LABS: ALKALINE PHOSPHATASE 84 U/L (45-117); BILIRUBIN,TOTAL 0.6 mg/dL (0.2-1.0); TOTAL PROTEIN 8.4 g/dL (6.4-8.2)
[2018-09-30] MEDS ORDERED: PIPERACILLIN/TAZO/PMX 3.375GM 50 ML ONE (17:23)
[2018-09-30] MEDS ORDERED: SODIUM CHLORIDE 0.9%, 500ML IVBOLUS ONE (17:30)
[2018-09-30] MEDS ORDERED: PIPERACILLIN/TAZO/PMX 3.375GM 50 ML IV ONE (17:30)
[2018-09-30 17:31] LABS: BASOPHILS # (AUTO) 0.02 x10^3/uL (0-0.1); BASOPHILS % (AUTO) 0 % (0-1); EOSINOPHILS % (AUTO) 0 % (1-7); LYMPHOCYTES # (AUTO) 1.21 x10^3/uL (1-3.4); LYMPHOCYTES % (AUTO) 5 % (22-44); MONOCYTES # (AUTO) 0.82 x10^3/uL (0.2-0.8); MONOCYTES % (AUTO) 3 % (2-9); NEUTROPHILS # (AUTO) 22.21 x10^3/uL (1.8-6.8); NEUTROPHILS % (AUTO) 92 % (42-75)
[2018-09-30 17:32] LABS: MD SCAN
[2018-09-30] MEDS ORDERED: GUAIFENESIN/DM 100-10MG, 5ML UDC PO PRN (18:30)
[2018-09-30] MEDS ORDERED: BISACODYL 10 MG SUPP PR PRN (18:30)
[2018-09-30] MEDS ORDERED: POLYETHYLENE GLYCOL 17 GM PACKET PO PRN (18:30)
[2018-09-30] MEDS ORDERED: DIPHENHYDRAMINE 25 MG CAPSULE PO PRN (18:30)
[2018-09-30] MEDS ORDERED: ALUMINUM/MAG/SIMETHICONE 30 ML UDC PO PRN (18:30)
[2018-09-30] MEDS ORDERED: ACETAMINOPHEN 325 MG TABLET PO PRN (18:30)
--- NOTE | 2018-09-30 19:02 | NUR ---
REPORT TO THE FLOOR TONNY
[2018-09-30 19:40] VITALS: BP 143/98
[2018-09-30] MEDS: CEFTRIAXONE PMX 1GM/50ML 50 ML IV SCH (19:45)
[2018-09-30] MEDS ORDERED: DOXA1TAB2 PO (20:03)
[2018-09-30] MEDS: HEPARIN 5,000 UNITS/ML, 1ML SQ SCH (20:44)
[2018-09-30] MEDS: METRONIDAZOLE PMX 500MG/100ML 100 ML IV SCH (20:44)
[2018-09-30] MEDS: SODIUM CHLORIDE 0.9% 1,000 ML IV SCH (20:45)
[2018-09-30] MEDS: OXYcodone ORAL.CONC 20 MG/ML PO PRN (20:45)
[2018-09-30] MEDS: DOXAZOSIN 1MG TABLET PO SCH (21:53)
[2018-10-01 01:39] VITALS: BP 99/63
[2018-10-01] MEDS: SODIUM CHLORIDE 0.9% 1,000 ML IV SCH ×2 (02:30→11:18)
[2018-10-01] MEDS: HEPARIN 5,000 UNITS/ML, 1ML SQ SCH ×3 (04:03→20:30)
[2018-10-01] MEDS: METRONIDAZOLE PMX 500MG/100ML 100 ML IV SCH ×3 (04:03→21:01)
[2018-10-01 04:55] LABS: ALBUMIN 2.9 g/dL (3.4-5.0); ANION GAP 5 mmol/L (5-15); CALCIUM 8.6 mg/dL (8.5-10.1); CHLORIDE 109 mmol/L (98-107)
[2018-10-01 05:00] LABS: BASOPHILS # (AUTO) 0.02 x10^3/uL (0-0.1); BASOPHILS % (AUTO) 0 % (0-1); EOSINOPHILS # (AUTO) 0.07 x10^3/uL (0-0.4); EOSINOPHILS % (AUTO) 1 % (1-7); LYMPHOCYTES # (AUTO) 1.24 x10^3/uL (1-3.4); LYMPHOCYTES % (AUTO) 12 % (22-44); MD NO; MEAN CORPUSCULAR HEMOGLOBIN 25.6 pg (27.5-34.5); MEAN CORPUSCULAR HGB CONC 32.1 g/dL (33.2-36.2); MEAN CORPUSCULAR VOLUME 79.8 fL (81-97); MEAN PLATELET VOLUME 6.9 fL (7.4-10.4); MONOCYTES # (AUTO) 0.61 x10^3/uL (0.2-0.8); MONOCYTES % (AUTO) 6 % (2-9); NEUTROPHILS # (AUTO) 8.09 x10^3/uL (1.8-6.8); NEUTROPHILS % (AUTO) 81 % (42-75); PLATELET COUNT 276 x10^3/uL (130-400); RED BLOOD COUNT 4.55 x10^6/uL (4.38-5.82); RED CELL DISTRIBUTION WIDTH 14.5 % (9.4-14.8)
[2018-10-01 05:01] LABS: ALANINE AMINOTRANSFERASE 14 U/L (12-78); ALKALINE PHOSPHATASE 69 U/L (45-117); BILIRUBIN,TOTAL 0.4 mg/dL (0.2-1.0); CREATININE 0.77 mg/dL (0.7-1.3); TOTAL PROTEIN 6.8 g/dL (6.4-8.2)
[2018-10-01] MEDS: LEVOTHYROXINE 112 MCG TABLET PO SCH (06:36)
[2018-10-01] MEDS: OXYcodone ORAL.CONC 20 MG/ML PO PRN ×2 (06:36→12:29)
[2018-10-01 07:34] VITALS: BP 118/80
[2018-10-01] MEDS: SENNA/DOCUSATE TABLET PO SCH (07:40)
[2018-10-01] MEDS ORDERED: DOXAZOSIN 2MG TABLET PO SCH (09:00)
[2018-10-01] MEDS: ONDANSETRON ODT 8 MG SL PRN (10:28)
[2018-10-01 13:43] VITALS: BP 116/60
[2018-10-01] MEDS: OXYcodone IR 5MG TABLET PO PRN (18:17)
[2018-10-01] MEDS: CEFTRIAXONE PMX 1GM/50ML 50 ML IV SCH (19:46)
[2018-10-01] MEDS: DOXAZOSIN 1MG TABLET PO SCH (19:52)
[2018-10-01] MEDS: SODIUM CHLORIDE INHALATION 3%, 4 ML NPPB SCH (20:07)
[2018-10-01 20:18] VITALS: BP 114/75
[2018-10-02] VITALS (8 sets, daily range): BP systolic 100–179; BP diastolic 60–135
[2018-10-02] MEDS: OXYcodone IR 5MG TABLET PO PRN ×3 (01:13→21:14)
[2018-10-02] MEDS: SODIUM CHLORIDE 0.9% 1,000 ML IV SCH (02:43)
[2018-10-02] MEDS: HEPARIN 5,000 UNITS/ML, 1ML SQ SCH ×3 (04:30→20:30)
[2018-10-02 04:41] LABS: CHLORIDE 108 mmol/L (98-107)
[2018-10-02 04:42] LABS: ANION GAP 7 mmol/L (5-15); BASOPHILS # (AUTO) 0.04 x10^3/uL (0-0.1); BASOPHILS % (AUTO) 1 % (0-1); CALCIUM 8.6 mg/dL (8.5-10.1); CREATININE 0.78 mg/dL (0.7-1.3); EOSINOPHILS # (AUTO) 0.05 x10^3/uL (0-0.4); EOSINOPHILS % (AUTO) 1 % (1-7); LYMPHOCYTES # (AUTO) 1.26 x10^3/uL (1-3.4); LYMPHOCYTES % (AUTO) 18 % (22-44); MD NO; MEAN CORPUSCULAR HEMOGLOBIN 25.3 pg (27.5-34.5); MEAN CORPUSCULAR HGB CONC 31.6 g/dL (33.2-36.2); MEAN CORPUSCULAR VOLUME 80.1 fL (81-97); MEAN PLATELET VOLUME 6.9 fL (7.4-10.4); MONOCYTES # (AUTO) 0.56 x10^3/uL (0.2-0.8); MONOCYTES % (AUTO) 8 % (2-9); NEUTROPHILS # (AUTO) 5.13 x10^3/uL (1.8-6.8); NEUTROPHILS % (AUTO) 73 % (42-75); PLATELET COUNT 299 x10^3/uL (130-400); RED BLOOD COUNT 4.78 x10^6/uL (4.38-5.82); RED CELL DISTRIBUTION WIDTH 14.7 % (9.4-14.8)
[2018-10-02] MEDS: METRONIDAZOLE PMX 500MG/100ML 100 ML IV SCH ×3 (04:59→21:14)
[2018-10-02] MEDS: LEVOTHYROXINE 112 MCG TABLET PO SCH (06:14)
[2018-10-02] MEDS: ONDANSETRON ODT 8 MG SL PRN (06:14)
[2018-10-02] MEDS: SENNA/DOCUSATE TABLET PO SCH (09:00)
[2018-10-02] MEDS: SODIUM CHLORIDE INHALATION 3%, 4 ML NPPB SCH ×2 (09:00→20:25)
[2018-10-02] MEDS: DOXAZOSIN 1MG TABLET PO SCH ×2 (09:07→19:22)
[2018-10-02] MEDS: CEFTRIAXONE PMX 1GM/50ML 50 ML IV SCH (19:23)
[2018-10-03 02:33] VITALS: BP 130/91
[2018-10-03] MEDS: OXYcodone IR 5MG TABLET PO PRN ×3 (02:52→17:38)
[2018-10-03] MEDS: ONDANSETRON ODT 8 MG SL PRN ×2 (02:54→12:21)
[2018-10-03] MEDS: HEPARIN 5,000 UNITS/ML, 1ML SQ SCH ×2 (04:24→12:30)
[2018-10-03] MEDS: METRONIDAZOLE PMX 500MG/100ML 100 ML IV SCH ×2 (04:34→12:56)
[2018-10-03] MEDS: LEVOTHYROXINE 112 MCG TABLET PO SCH (06:29)
[2018-10-03 08:02] VITALS: BP 127/88
[2018-10-03] MEDS: SENNA/DOCUSATE TABLET PO SCH ×2 (08:22→17:44)
[2018-10-03] MEDS: SODIUM CHLORIDE INHALATION 3%, 4 ML NPPB SCH (08:30)
[2018-10-03 15:21] VITALS: BP 110/78
[2018-10-03] MEDS ORDERED: AMOX250S20 PO (15:46)
== END 2018-10-03 18:33 | disposition home or self-care (01) | DRG 871 ==
LOC: ED 15:55 → EDIP 17:31 → 3NW 19:11
PROVIDERS: ADMIT Internal Medicine; ATTEND Internal Medicine
DX: A41.9 Sepsis, unspecified organism (principal); J69.0 Pneumonitis due to inhalation of food and vomit; E46 Unspecified protein-calorie malnutrition; Z68.1 Body mass index [BMI] 19.9 or less, adult; D50.9 Iron deficiency anemia, unspecified; E03.9 Hypothyroidism, unspecified; F12.90 Cannabis use, unspecified, uncomplicated; G89.29 Other chronic pain; M54.9 Dorsalgia, unspecified; I10 Essential (primary) hypertension; K21.9 Gastro-esophageal reflux disease without esophagitis; R65.20 Severe sepsis without septic shock; Z79.899 Other long term (current) drug therapy; Z85.818 Personal history of malignant neoplasm of other sites of lip, oral cavity, and pharynx; Z87.01 Personal history of pneumonia (recurrent); Z87.891 Personal history of nicotine dependence; Z92.21 Personal history of antineoplastic chemotherapy; Z92.3 Personal history of irradiation; Z88.5 Allergy status to narcotic agent; Z88.8 Allergy status to other drugs, medicaments and biological substances
CPT/HCPCS: 36415; 71045; 80048; 80053; 82728; 83540; 83550; 83605; 83735; 84145; 85025; 87040; 87070; 87184; 87205; 94640; 99291; G0378; J0696; J1170; J1644; J2405; J2543; Q0162; J7030; J7040

== ENCOUNTER 2018-12-28 10:40 | Inpatient (IN) | payer MEDICARE, MEDICAID ==
[~2018-12-28] VITALS: Ht 185.4 cm; Wt 60.0 kg
[~2018-12-28 10:40] MED LIST changes: +DOXA1TAB2 PO
[2018-12-28] MEDS ORDERED: HYDROmorphone 1 MG/ML, 1ML INJ IV ONE ×4 (11:30→17:00)
[2018-12-28] MEDS ORDERED: SODIUM CHLORIDE FLUSH 10ML SYR IVF ONE (11:30)
[2018-12-28] MEDS ORDERED: SODIUM CHLORIDE 0.9% 1,000ML IVBOLUS ONE (11:30)
[2018-12-28] MEDS ORDERED: ONDANSETRON 2MG/ML, 2ML IVPush ONE (11:30)
[2018-12-28] MEDS ORDERED: FAMOTIDINE 20 MG/2 ML IVP ONE (11:30)
[2018-12-28] MEDS ORDERED: HYDROmorphone 1 MG/ML, 1ML VIAL ONE ×3 (11:41→15:08)
[2018-12-28] MEDS ORDERED: ONDANSETRON 2MG/ML, 2ML ONE (11:41)
[2018-12-28] MEDS ORDERED: FAMOTIDINE 20 MG/2 ML ONE (11:42)
--- NOTE | 2018-12-28 11:59 | NUR ---
RIGHT FOREARM PIV PLACED WITH US, FROM WHICH LABS INCLUDING LACTATE OBTAINED-SENT AT 1200P PATIENT THEN MEDICATED PER EMAR
--- NOTE | 2018-12-28 12:20 | NUR ---
PLACED ON 2L NC PROACTIVELY PATIENT WITH ABNORMAL AIRWAY/JUST MEDICATED WITH NARCOTICS TO CT SCAN
[2018-12-28 12:23] LABS: MEAN CORPUSCULAR HEMOGLOBIN 25.6 pg (27.5-34.5); MEAN CORPUSCULAR HGB CONC 31.7 g/dL (33.2-36.2); MEAN CORPUSCULAR VOLUME 80.5 fL (81-97); MEAN PLATELET VOLUME 7.4 fL (7.4-10.4); PLATELET COUNT 285 x10^3/uL (130-400); RED BLOOD COUNT 5.94 x10^6/uL (4.38-5.82); RED CELL DISTRIBUTION WIDTH 15.8 % (9.4-14.8)
[2018-12-28 12:35] LABS: ALANINE AMINOTRANSFERASE 26 U/L (12-78); ALBUMIN 4.4 g/dL (3.4-5.0); ANION GAP 5 mmol/L (5-15); CALCIUM 9.6 mg/dL (8.5-10.1); CHLORIDE 98 mmol/L (98-107); CREATININE 0.91 mg/dL (0.7-1.3)
[2018-12-28 12:37] LABS: ALKALINE PHOSPHATASE 89 U/L (45-117); BILIRUBIN,TOTAL 0.8 mg/dL (0.2-1.0)
[2018-12-28 12:44] LABS: MD YES
[2018-12-28 12:46] LABS: BAND#(MANUAL) 1.82 x10^3/uL; BANDS%(MANUAL) 6 % (0-7); LYMPH#(MANUAL) 0.91 x10^3/uL (1-3.4); LYMPHS% (MANUAL) 3 % (22-44); MONOS% (MANUAL) 1 % (2-9); SEG#(MANUAL) 27.27 x10^3/uL (1.8-6.8); SEGS% (MANUAL) 90 % (42-75)
[2018-12-28 12:48] LABS: ANISOCYTOSIS 1+; MICROCYTOSIS 1+
--- NOTE | 2018-12-28 12:48 | NUR ---
BACK FROM CT REPORTS PAIN REMAINS AT 810 DESPITE RECENT MEDICATION/ALSO REMAIN HYPERTENSIVE-TO SPEAK TO PROVIDER IN R/T TO BOTH ISSUES UA OBTAINED-SENT
[2018-12-28 12:49] LABS: <PLATELET ESTIMATE> ADEQUATE; <PLT MORPHOLOGY> NORMAL PLT MORPH
--- NOTE | 2018-12-28 12:59 | NUR ---
POC REVIEWED W/ PROVIDER- TO BROADEN WORKUP/RE-MEDICATE FOR PAIN TO CLOSELY MONITOR
[2018-12-28] MEDS ORDERED: ONDA4TAB13 PO (13:06)
[2018-12-28] MEDS ORDERED: ALBU18HF NEB (13:07)
--- NOTE | 2018-12-28 13:15 | NUR ---
REVIEWED PLAN WITH PROVIDER ON ADDITIONAL FLUIDS/NEED FOR BLOOD CULTURES. PLAN TO OBTAIN ADDITIONAL CT'S (HEAD/NECK) WAIT ON ALREADY ORDERED TESTS TO DETERMINE NEED FOR ADDITIONAL IVF/CULTURES
[2018-12-28 13:39] LABS: MICROSCOPIC INDICATED
[2018-12-28 13:40] LABS: CULTURE INDICATED? NO
--- NOTE | 2018-12-28 13:50 | NUR ---
BACK FROM CT PAIN IMPROVED TO 5/10 VITALS IMPROVED 100, 118/76 NO VOMITING SINCE ARRIVAL
[2018-12-28] MEDS ORDERED: hydrALAzine 20 MG/ML, 1ML IV ONE (14:00)
--- NOTE | 2018-12-28 14:07 | NUR ---
HYDRALZINE HELD B/P IMPROVED-PROVIDER AWARE/AGREEABLE
[2018-12-28] MEDS ORDERED: OMNIPAQUE 350 MG/ML, 150 ML BOTTLE ONE (14:14)
[2018-12-28] MEDS ORDERED: AZITHROMYCIN 500 MG in SODIUM CHLORIDE 0.9% 250 ML IV ONE (14:30)
[2018-12-28] MEDS ORDERED: CEFTRIAXONE PMX 1GM/50ML 50 ML IVPB ONE (14:30)
--- NOTE | 2018-12-28 14:39 | NUR ---
LAB AT BEDSIDE DRAWING BLOOD CULTURES/LACTATE
[2018-12-28] MEDS ORDERED: CEFTRIAXONE PMX 1GM/50ML 50 ML ONE (15:07)
--- NOTE | 2018-12-28 15:15 | NUR ---
ABX 05/31 STARTED PROVIDER ASKED FOR REPAEAT PAIN MEDICATION _ABD PAIN TO 11/06- TO ORDER 1MG HYDROMORPHONE SHORTLY
--- NOTE | 2018-12-28 15:44 | NUR ---
MEDICATED PER EMAR (ABX 07/01) & ADDITIONAL PAIN MEDICINE
[2018-12-28 16:20] VITALS: BP 180/135
[2018-12-28] MEDS ORDERED: HYDROmorphone 2 MG/ML, 1ML ONE (16:46)
[2018-12-28] MEDS: hydrALAzine 20 MG/ML, 1ML IV PRN (16:55)
[2018-12-28] MEDS: ONDANSETRON 2MG/ML, 2ML IVPush PRN ×2 (16:59→21:50)
[2018-12-28] MEDS ORDERED: PROMETHAZINE 25 MG/ML, 1ML IM PRN (17:30)
[2018-12-28] MEDS ORDERED: hydrALAzine 20 MG/ML, 1ML IVPush PRN (17:30)
[2018-12-28] MEDS: D5%-0.9% NACL 1,000 ML IV SCH (17:30)
[2018-12-28] MEDS ORDERED: LABETALOL 5MG/ML, 20ML IVPush PRN (17:30)
[2018-12-28] MEDS ORDERED: KETOROLAC 30 MG/1 ML IV PRN (17:30)
[2018-12-28] MEDS ORDERED: ONDANSETRON 2MG/ML, 2ML IVPush PRN (17:30)
[2018-12-28] MEDS: PIPERACILLIN/TAZO/PMX 3.375GM 50 ML IV SCH (18:06)
[2018-12-28 18:07] VITALS: BP 129/81
[2018-12-28 18:21] LABS: FREE T4 (FREE THYROXINE) 1.49 ng/dL (0.76-1.46)
[2018-12-28 19:07] LABS: HEMOGLOBIN A1C 5.8 % (4.2-6.3)
[2018-12-28 20:07] VITALS: BP 172/127
[2018-12-28] MEDS: HYDROmorphone 2 MG/ML, 1ML IV PRN (20:37)
[2018-12-28 20:46] VITALS: BP 169/126
[2018-12-28 21:54] VITALS: BP 135/92
[2018-12-29] VITALS (7 sets, daily range): BP systolic 131–186; BP diastolic 87–139
[2018-12-29] MEDS: PIPERACILLIN/TAZO/PMX 3.375GM 50 ML IV SCH ×4 (01:06→18:48)
[2018-12-29] MEDS: D5%-0.9% NACL 1,000 ML IV SCH ×2 (02:45→11:14)
[2018-12-29] MEDS: ONDANSETRON 2MG/ML, 2ML IVPush PRN ×3 (04:24→18:48)
[2018-12-29] MEDS: HYDROmorphone 2 MG/ML, 1ML IV PRN ×5 (04:26→20:16)
[2018-12-29 04:55] LABS: MEAN CORPUSCULAR HEMOGLOBIN 26.3 pg (27.5-34.5); MEAN CORPUSCULAR HGB CONC 31.8 g/dL (33.2-36.2); MEAN CORPUSCULAR VOLUME 82.7 fL (81-97); MEAN PLATELET VOLUME 7.3 fL (7.4-10.4); PLATELET COUNT 306 x10^3/uL (130-400); RED BLOOD COUNT 5.52 x10^6/uL (4.38-5.82); RED CELL DISTRIBUTION WIDTH 16.4 % (9.4-14.8)
[2018-12-29 05:05] LABS: ALBUMIN 3.8 g/dL (3.4-5.0); ANION GAP 7 mmol/L (5-15); CALCIUM 8.8 mg/dL (8.5-10.1); CHLORIDE 106 mmol/L (98-107)
[2018-12-29 05:09] LABS: ALANINE AMINOTRANSFERASE 25 U/L (12-78); ALKALINE PHOSPHATASE 74 U/L (45-117); BILIRUBIN,TOTAL 0.8 mg/dL (0.2-1.0); CHOL/HDL RATIO 2.5; CHOLESTEROL, TOTAL 143 mg/dL (140-239); HDL CHOL % 41 % (26-37); HDL CHOLESTEROL (DIRECT) 58 mg/dL (40-60); LDL CHOLESTEROL,CALCULATED 69 mg/dL (54-169); LDL/HDL RATIO 1.2 (0.5-3.0); TOTAL PROTEIN 8.4 g/dL (6.4-8.2); TRIGLYCERIDES 80 mg/dL (50-200); VLDL CHOLESTEROL 16 mg/dL (0-25)
[2018-12-29 05:52] LABS: BASOPHILS # (AUTO) 0.04 x10^3/uL (0-0.1); BASOPHILS % (AUTO) 0 % (0-1); EOSINOPHILS % (AUTO) 0 % (1-7); LYMPHOCYTES # (AUTO) 1.88 x10^3/uL (1-3.4); LYMPHOCYTES % (AUTO) 12 % (22-44); MD SCAN; MONOCYTES # (AUTO) 0.88 x10^3/uL (0.2-0.8); MONOCYTES % (AUTO) 6 % (2-9); NEUTROPHILS # (AUTO) 12.45 x10^3/uL (1.8-6.8); NEUTROPHILS % (AUTO) 82 % (42-75)
[2018-12-29] MEDS: hydrALAzine 20 MG/ML, 1ML IV PRN ×2 (08:06→14:11)
[2018-12-29] MEDS ORDERED: LEVOTHYROXINE 100 MCG INJ IVPush SCH (09:00)
[2018-12-29] MEDS: OXYcodone IR 5MG TABLET PO PRN (15:37)
[2018-12-29] MEDS: DOXAZOSIN 1MG TABLET PO SCH (20:16)
[2018-12-29] MEDS: SODIUM CHLORIDE INHALATION 3%, 4 ML NPPB SCH (20:38)
[2018-12-30] VITALS (7 sets, daily range): BP systolic 102–174; BP diastolic 60–106
[2018-12-30] MEDS: ONDANSETRON 2MG/ML, 2ML IVPush PRN ×4 (00:12→21:30)
[2018-12-30] MEDS: PIPERACILLIN/TAZO/PMX 3.375GM 50 ML IV SCH ×4 (00:12→18:04)
[2018-12-30] MEDS: OXYcodone IR 5MG TABLET PO PRN ×3 (00:12→14:04)
[2018-12-30] MEDS: LEVOTHYROXINE 112 MCG TABLET PO SCH (05:08)
[2018-12-30] MEDS: HYDROmorphone 2 MG/ML, 1ML IV PRN ×3 (05:08→21:30)
[2018-12-30 05:11] LABS: BASOPHILS # (AUTO) 0.01 x10^3/uL (0-0.1); BASOPHILS % (AUTO) 0 % (0-1); EOSINOPHILS # (AUTO) 0.01 x10^3/uL (0-0.4); EOSINOPHILS % (AUTO) 0 % (1-7); LYMPHOCYTES # (AUTO) 1.27 x10^3/uL (1-3.4); LYMPHOCYTES % (AUTO) 11 % (22-44); MD NO; MEAN CORPUSCULAR HEMOGLOBIN 25.6 pg (27.5-34.5); MEAN CORPUSCULAR HGB CONC 31.1 g/dL (33.2-36.2); MEAN CORPUSCULAR VOLUME 82.4 fL (81-97); MONOCYTES # (AUTO) 0.64 x10^3/uL (0.2-0.8); MONOCYTES % (AUTO) 6 % (2-9); NEUTROPHILS # (AUTO) 9.67 x10^3/uL (1.8-6.8); NEUTROPHILS % (AUTO) 83 % (42-75); PLATELET COUNT 281 x10^3/uL (130-400); RED BLOOD COUNT 5.06 x10^6/uL (4.38-5.82); RED CELL DISTRIBUTION WIDTH 16.1 % (9.4-14.8)
[2018-12-30 05:23] LABS: ANION GAP 6 mmol/L (5-15); CALCIUM 8.5 mg/dL (8.5-10.1); CHLORIDE 106 mmol/L (98-107)
[2018-12-30 05:25] LABS: CREATININE 0.98 mg/dL (0.7-1.3)
[2018-12-30] MEDS: hydrALAzine 20 MG/ML, 1ML IV PRN (08:17)
[2018-12-30] MEDS: SODIUM CHLORIDE INHALATION 3%, 4 ML NPPB SCH ×2 (08:35→19:56)
[2018-12-30] MEDS ORDERED: NEUTRA PHOS K 250 MG TABLET PO SCH (09:30)
[2018-12-30] MEDS ORDERED: POTASSIUM PHOSPHATE 22 MEQ in SODIUM CHLORIDE 0.9% 500 ML IV ONE (11:00)
[2018-12-30] MEDS: LISINOPRIL 5 MG TABLET PO SCH (11:28)
[2018-12-30] MEDS ORDERED: DOXAZOSIN 1MG TABLET PO SCH (18:00)
[2018-12-30] MEDS: DOXAZOSIN 1MG TABLET PO SCH (18:04)
[2018-12-31] MEDS: PIPERACILLIN/TAZO/PMX 3.375GM 50 ML IV SCH ×2 (00:28→05:44)
[2018-12-31 00:30] VITALS: BP 99/53
[2018-12-31] MEDS: OXYcodone IR 5MG TABLET PO PRN ×3 (04:03→12:57)
[2018-12-31] MEDS: ONDANSETRON 2MG/ML, 2ML IVPush PRN ×2 (04:03→11:04)
[2018-12-31 05:05] LABS: BASOPHILS # (AUTO) 0.02 x10^3/uL (0-0.1); BASOPHILS % (AUTO) 0 % (0-1); EOSINOPHILS # (AUTO) 0.19 x10^3/uL (0-0.4); EOSINOPHILS % (AUTO) 2 % (1-7); LYMPHOCYTES # (AUTO) 2.01 x10^3/uL (1-3.4); LYMPHOCYTES % (AUTO) 22 % (22-44); MD NO; MEAN CORPUSCULAR HEMOGLOBIN 26.3 pg (27.5-34.5); MEAN CORPUSCULAR HGB CONC 31.9 g/dL (33.2-36.2); MEAN CORPUSCULAR VOLUME 82.4 fL (81-97); MEAN PLATELET VOLUME 7.4 fL (7.4-10.4); MONOCYTES # (AUTO) 0.74 x10^3/uL (0.2-0.8); MONOCYTES % (AUTO) 8 % (2-9); NEUTROPHILS # (AUTO) 6.19 x10^3/uL (1.8-6.8); NEUTROPHILS % (AUTO) 68 % (42-75); PLATELET COUNT 262 x10^3/uL (130-400); RED BLOOD COUNT 5.26 x10^6/uL (4.38-5.82); RED CELL DISTRIBUTION WIDTH 16.2 % (9.4-14.8)
[2018-12-31] MEDS: LEVOTHYROXINE 112 MCG TABLET PO SCH (05:44)
[2018-12-31 07:58] VITALS: BP 109/62
[2018-12-31] MEDS ORDERED: ENOXAPARIN 40 MG/0.4 ML SQ SCH (08:00)
[2018-12-31] MEDS ORDERED: AMOXICILLIN/CLAV 875-125MG TABLET PO SCH (08:00)
[2018-12-31] MEDS: LISINOPRIL 5 MG TABLET PO SCH (08:03)
[2018-12-31] MEDS: DOXAZOSIN 1MG TABLET PO SCH (08:03)
[2018-12-31] MEDS ORDERED: DOXYCYCLINE 100MG TABLET PO SCH (09:00)
[2018-12-31] MEDS: SODIUM CHLORIDE INHALATION 3%, 4 ML NPPB SCH (09:00)
[2018-12-31] MEDS ORDERED: DOXYCYCLINE 100MG CAP PO SCH (09:49)
[2018-12-31] MEDS: HYDROmorphone 2 MG/ML, 1ML IV PRN (10:00)
[2018-12-31] MEDS ORDERED: DOXY25SU2 PO (11:28)
[2018-12-31] MEDS ORDERED: AMOX250S20 PO (11:28)
== END 2018-12-31 14:05 | disposition home or self-care (01) | DRG 871 ==
LOC: ED 12:12 → EDIP 15:01 → 4NOR 16:19 → 3NW 12-29 05:24
PROVIDERS: ADMIT Internal Medicine; ATTEND Internal Medicine
DX: A41.9 Sepsis, unspecified organism (principal); J69.0 Pneumonitis due to inhalation of food and vomit; E87.1 Hypo-osmolality and hyponatremia; E03.9 Hypothyroidism, unspecified; E83.39 Other disorders of phosphorus metabolism; E86.0 Dehydration; G89.29 Other chronic pain; I10 Essential (primary) hypertension; R13.10 Dysphagia, unspecified; Z85.818 Personal history of malignant neoplasm of other sites of lip, oral cavity, and pharynx; Z87.891 Personal history of nicotine dependence; Z91.11 Patient's noncompliance with dietary regimen; Z88.5 Allergy status to narcotic agent; Z88.8 Allergy status to other drugs, medicaments and biological substances; Z92.21 Personal history of antineoplastic chemotherapy; Z92.3 Personal history of irradiation; Z93.0 Tracheostomy status; Z93.1 Gastrostomy status
CPT/HCPCS: 36415; 70491; 74022; 74177; 80048; 80053; 80061; 81001; 83036; 83605; 83690; 83735; 84100; 84145; 84439; 84443; 85025; 87040; 87070; 87147; 87205; 93005; 94640; 96361; 96365; 96375; 96376; 99285; G0378; J0456; J0696; J1170; J1885; J2405; J2543; J7042; Q9967; J0360; J3490; J7030; J7040; J7050

== ENCOUNTER 2019-01-26 12:24 | Inpatient (IN) | payer MEDICARE, MEDICAID ==
[~2019-01-26] VITALS: Ht 185.4 cm; Wt 61.6 kg
[~2019-01-26 12:24] MED LIST changes: +ALBU18HF NEB; +DOXY25SU2 PO; +ONDA4TAB13 PO
[2019-01-26 12:55] LABS: BASOPHILS # (AUTO) 0.02 x10^3/uL (0-0.1); BASOPHILS % (AUTO) 0 % (0-1); EOSINOPHILS # (AUTO) 0.01 x10^3/uL (0-0.4); EOSINOPHILS % (AUTO) 0 % (1-7); LYMPHOCYTES # (AUTO) 1.73 x10^3/uL (1-3.4); LYMPHOCYTES % (AUTO) 11 % (22-44); MD NO; MEAN CORPUSCULAR HEMOGLOBIN 26.2 pg (27.5-34.5); MEAN CORPUSCULAR HGB CONC 32.1 g/dL (33.2-36.2); MEAN CORPUSCULAR VOLUME 81.5 fL (81-97); MEAN PLATELET VOLUME 7.2 fL (7.4-10.4); MONOCYTES # (AUTO) 0.99 x10^3/uL (0.2-0.8); MONOCYTES % (AUTO) 6 % (2-9); NEUTROPHILS # (AUTO) 12.97 x10^3/uL (1.8-6.8); NEUTROPHILS % (AUTO) 83 % (42-75); PLATELET COUNT 339 x10^3/uL (130-400); RED BLOOD COUNT 6.07 x10^6/uL (4.38-5.82); RED CELL DISTRIBUTION WIDTH 15.7 % (9.4-14.8)
[2019-01-26] MEDS ORDERED: HYDROmorphone 1 MG/ML, 1ML VIAL ONE ×2 (12:57→14:58)
[2019-01-26] MEDS ORDERED: METOCLOPRAMIDE 5 MG/ML, 2ML ONE (12:57)
[2019-01-26] MEDS ORDERED: FAMOTIDINE 20 MG/2 ML ONE (12:58)
[2019-01-26] MEDS ORDERED: SODIUM CHLORIDE FLUSH 10ML SYR IVF ONE (13:00)
[2019-01-26] MEDS ORDERED: METOCLOPRAMIDE 5 MG/ML, 2ML IVPush ONE (13:00)
[2019-01-26] MEDS ORDERED: FAMOTIDINE 20 MG/2 ML IV ONE (13:00)
[2019-01-26] MEDS ORDERED: SODIUM CHLORIDE 0.9% 1,000ML IVBOLUS ONE ×2 (13:00→14:00)
[2019-01-26 13:03] LABS: ALANINE AMINOTRANSFERASE 24 U/L (12-78); ALBUMIN 4.3 g/dL (3.4-5.0); ANION GAP 10 mmol/L (5-15); CALCIUM 9.7 mg/dL (8.5-10.1); CHLORIDE 102 mmol/L (98-107); CREATININE 1.06 mg/dL (0.7-1.3)
[2019-01-26 13:06] LABS: ALKALINE PHOSPHATASE 89 U/L (45-117); BILIRUBIN,TOTAL 0.6 mg/dL (0.2-1.0); TOTAL PROTEIN 9.1 g/dL (6.4-8.2)
--- NOTE | 2019-01-26 13:16 | NUR ---
Patient to room; reports nausea and stomach distress. Patient appears cachectic and has a healing tracheostomy. Patient reports an extensive hosptilization history from a collapsed airway r/t a biospy attempt. Patient also reports having a complication from a previous feeding tube. Patient is not vomiting; attached to a monitor. VSS. Orders already placed. New orders placed for lactate; phlebotomy to bedside; informed patient needs an IV. Patient agreeable.
[2019-01-26] MEDS: HYDROmorphone 2 MG/ML, 1ML IVPush PRN ×2 (13:30→15:13)
--- NOTE | 2019-01-26 14:30 | NUR ---
Patient returned from imaging; reports nausea has improved since medication. Pain has improved with pain medication administration but has not gone away. Awaiting scan results.
[2019-01-26] MEDS ORDERED: SODIUM CHLORIDE 0.9% 1,000 ML IV ONE (14:54)
[2019-01-26] MEDS ORDERED: HYDROmorphone 2 MG/ML, 1ML IVPush PRN (15:00)
[2019-01-26] MEDS ORDERED: METRONIDAZOLE PMX 500MG/100ML 100 ML IVPB ONE (15:00)
[2019-01-26] MEDS ORDERED: PIPERACILLIN/TAZO/PMX 4.5GM 100 ML IVPB ONE (15:00)
[2019-01-26] MEDS ORDERED: SODIUM CHLORIDE FLUSH 10ML SYR IVF PRN (15:00)
[2019-01-26] MEDS ORDERED: ZOLPIDEM 5MG TABLET PO PRN (16:30)
[2019-01-26] MEDS ORDERED: KETOROLAC 30 MG/1 ML IV PRN (16:30)
[2019-01-26] MEDS ORDERED: ONDANSETRON ODT 4 MG PO PRN ×2 (16:30)
[2019-01-26] MEDS ORDERED: BUTALB/APAP/CAFFEINE 50MG/325MG/40MG PO PRN (16:30)
[2019-01-26 16:32] LABS: MICROSCOPIC AUTO
[2019-01-26 16:36] LABS: CULTURE INDICATED? NO
[2019-01-26] MEDS: ONDANSETRON 2MG/ML, 2ML IVPush PRN (17:12)
[2019-01-26 17:20] VITALS: BP 156/111
[2019-01-26] MEDS ORDERED: ALBUTEROL SULFATE 2.5 MG/3 ML NPPB PRN (17:30)
[2019-01-26] MEDS ORDERED: LABETALOL 5MG/ML, 20ML IVPush PRN (18:00)
[2019-01-26] MEDS: POTASSIUM CHLORIDE 20 MEQ in LACTATED RINGERS 1,000 ML IV SCH (18:15)
[2019-01-26 19:41] VITALS: BP 131/80
[2019-01-26] MEDS: OXYcodone IR 5MG TABLET PO SCH (20:12)
[2019-01-26] MEDS: METRONIDAZOLE PMX 500MG/100ML 100 ML IV SCH (20:13)
[2019-01-26] MEDS: SODIUM CHLORIDE INHALATION 7%, 4 ML NPPB SCH (21:00)
[2019-01-26] MEDS: PIPERACILLIN/TAZO/PMX 3.375GM 50 ML IV SCH (23:41)
[2019-01-27 00:27] VITALS: BP 166/120
[2019-01-27] MEDS: POTASSIUM CHLORIDE 20 MEQ in LACTATED RINGERS 1,000 ML IV SCH ×3 (04:09→16:30)
[2019-01-27] MEDS: ONDANSETRON 2MG/ML, 2ML IVPush PRN ×3 (04:09→16:30)
[2019-01-27] MEDS: METRONIDAZOLE PMX 500MG/100ML 100 ML IV SCH ×3 (04:09→20:26)
[2019-01-27] MEDS: OXYcodone IR 5MG TABLET PO SCH ×4 (04:09→20:26)
[2019-01-27 05:07] LABS: BASOPHILS # (AUTO) 0.03 x10^3/uL (0-0.1); BASOPHILS % (AUTO) 0 % (0-1); EOSINOPHILS # (AUTO) 0.11 x10^3/uL (0-0.4); EOSINOPHILS % (AUTO) 1 % (1-7); LYMPHOCYTES # (AUTO) 1.79 x10^3/uL (1-3.4); LYMPHOCYTES % (AUTO) 18 % (22-44); MD NO; MEAN CORPUSCULAR HEMOGLOBIN 26.5 pg (27.5-34.5); MEAN CORPUSCULAR HGB CONC 31.9 g/dL (33.2-36.2); MEAN CORPUSCULAR VOLUME 83.2 fL (81-97); MEAN PLATELET VOLUME 7.2 fL (7.4-10.4); MONOCYTES # (AUTO) 0.74 x10^3/uL (0.2-0.8); MONOCYTES % (AUTO) 8 % (2-9); NEUTROPHILS # (AUTO) 7.13 x10^3/uL (1.8-6.8); NEUTROPHILS % (AUTO) 73 % (42-75); PLATELET COUNT 277 x10^3/uL (130-400); RED BLOOD COUNT 5.48 x10^6/uL (4.38-5.82)
[2019-01-27 05:09] LABS: ANION GAP 4 mmol/L (5-15); CHLORIDE 105 mmol/L (98-107)
[2019-01-27] MEDS ORDERED: LEVOTHYROXINE 125 MCG TABLET PO SCH (06:00)
[2019-01-27] MEDS: LEVOTHYROXINE 112 MCG TABLET PO SCH (06:18)
[2019-01-27 07:00] VITALS: BP 142/88
[2019-01-27] MEDS: PIPERACILLIN/TAZO/PMX 3.375GM 50 ML IV SCH ×3 (08:05→22:05)
[2019-01-27] MEDS: SODIUM CHLORIDE INHALATION 7%, 4 ML NPPB SCH ×2 (09:00→20:18)
[2019-01-27] MEDS: DOXAZOSIN 1MG TABLET PO SCH (09:22)
[2019-01-27 13:36] VITALS: BP 155/106
[2019-01-27 20:04] VITALS: BP 116/73
[2019-01-28] MEDS: ONDANSETRON 2MG/ML, 2ML IVPush PRN ×2 (02:55→09:00)
[2019-01-28 03:10] VITALS: BP 140/98
[2019-01-28] MEDS: PIPERACILLIN/TAZO/PMX 3.375GM 50 ML IV SCH ×2 (03:41→10:16)
[2019-01-28] MEDS: METRONIDAZOLE PMX 500MG/100ML 100 ML IV SCH ×2 (04:22→12:27)
[2019-01-28] MEDS: OXYcodone IR 5MG TABLET PO SCH ×2 (04:25→10:25)
[2019-01-28] MEDS: LEVOTHYROXINE 112 MCG TABLET PO SCH (04:25)
[2019-01-28] MEDS: POTASSIUM CHLORIDE 20 MEQ in LACTATED RINGERS 1,000 ML IV SCH (06:40)
[2019-01-28 07:42] VITALS: BP 153/102
[2019-01-28] MEDS: DOXAZOSIN 1MG TABLET PO SCH (08:59)
[2019-01-28] MEDS: SODIUM CHLORIDE INHALATION 7%, 4 ML NPPB SCH (09:00)
[2019-01-28] MEDS ORDERED: AMOX250S20 PO (12:51)
== END 2019-01-28 15:12 | disposition home or self-care (01) | DRG 871 ==
LOC: ED 12:38 → 3N 14:54
PROVIDERS: ADMIT Family Medicine; ATTEND Family Medicine
DX: A41.9 Sepsis, unspecified organism (principal); J69.0 Pneumonitis due to inhalation of food and vomit; E87.1 Hypo-osmolality and hyponatremia; R65.20 Severe sepsis without septic shock; Z88.5 Allergy status to narcotic agent; Z88.8 Allergy status to other drugs, medicaments and biological substances; E03.9 Hypothyroidism, unspecified; E86.0 Dehydration; G89.29 Other chronic pain; I10 Essential (primary) hypertension; K21.9 Gastro-esophageal reflux disease without esophagitis; R62.7 Adult failure to thrive; Z85.01 Personal history of malignant neoplasm of esophagus; Z85.818 Personal history of malignant neoplasm of other sites of lip, oral cavity, and pharynx
CPT/HCPCS: 36415; 74022; 74177; 80048; 80053; 81001; 83605; 83690; 83735; 84145; 85025; 87040; 93005; 94640; 96361; 96374; 96375; 99284; 99291; G0378; J1170; J1885; J2405; J2543; J3480; Q9967; J2765; J3490; J7030; J7120

== ENCOUNTER 2019-05-15 03:33 | Emergency (ER) | payer MEDICARE, MEDICAID ==
[~2019-05-15] VITALS: Ht 182.9 cm; Wt 63.9 kg
[~2019-05-15 03:33] MED LIST changes: +AMOX600S4 PO; -AMOX600S43 PO; +AZIT500T10 PO; -AZIT500T5 PO
--- NOTE | 2019-05-15 04:15 | NUR ---
INITITAL CONTACT WITH PT. MD AT BEDSIDE. ASSESSMENT DONE, ORDERS PLACED.
[2019-05-15] MEDS ORDERED: ONDANSETRON 2MG/ML, 2ML ONE (04:22)
[2019-05-15] MEDS ORDERED: HYDROmorphone 2 MG/ML, 1ML ONE (04:22)
[2019-05-15] MEDS ORDERED: HYDROmorphone 2 MG/ML, 1ML IVPush PRN (04:30)
[2019-05-15] MEDS ORDERED: ONDANSETRON 2MG/ML, 2ML IVPush ONE (04:30)
[2019-05-15] MEDS ORDERED: SODIUM CHLORIDE FLUSH 10ML SYR IVF ONE (04:30)
[2019-05-15] MEDS ORDERED: SODIUM CHLORIDE 0.9% 1,000ML IVBOLUS ONE ×2 (04:30)
--- NOTE | 2019-05-15 04:33 | NUR ---
IV STARTED, MEDS GIVEN CHARTED, 5 RIGHTS VERIFIED. NIBP AND CONT PULSE OX ON. PT TO XRAY VIA GURNEY.
[2019-05-15 04:49] LABS: MEAN CORPUSCULAR HEMOGLOBIN 27.1 pg (27.5-34.5); MEAN CORPUSCULAR VOLUME 84.5 fL (81-97); MEAN PLATELET VOLUME 7.6 fL (7.4-10.4); PLATELET COUNT 267 x10^3/uL (130-400); RED BLOOD COUNT 5.16 x10^6/uL (4.38-5.82); RED CELL DISTRIBUTION WIDTH 15.6 % (9.4-14.8)
[2019-05-15 04:56] LABS: ALANINE AMINOTRANSFERASE 24 U/L (12-78); ALBUMIN 3.9 g/dL (3.4-5.0); ANION GAP 5 mmol/L (5-15); CHLORIDE 104 mmol/L (98-107); CREATININE 0.99 mg/dL (0.7-1.3)
[2019-05-15 04:58] LABS: ALKALINE PHOSPHATASE 73 U/L (45-117); BILIRUBIN,TOTAL 0.7 mg/dL (0.2-1.0); TOTAL PROTEIN 8.5 g/dL (6.4-8.2)
--- NOTE | 2019-05-15 05:06 | NUR ---
PT STATES PAIN IMPROVED, NOW 11/06. BP 78/48, PT DENIES DIZZINESS OR LIGHTHEADEDNESS. INSTRUCTED PT NOT TO STAND.
[2019-05-15] MEDS ORDERED: HYDROmorphone 1 MG/ML, 1ML INJ ONE (05:37)
[2019-05-15] MEDS ORDERED: DIPH25CA61 PO (05:43)
[2019-05-15 05:48] LABS: MD YES
[2019-05-15 05:50] LABS: <PLATELET ESTIMATE> ADEQUATE; <PLT MORPHOLOGY> NORMAL PLT MORPH; ANISOCYTOSIS 1+; BAND#(MANUAL) 1.38 x10^3/uL; BANDS%(MANUAL) 5 % (0-7); LYMPH#(MANUAL) 0.55 x10^3/uL (1-3.4); LYMPHS% (MANUAL) 2 % (22-44); MONOS#(MANUAL) 1.38 x10^3/uL (0.3-2.7); MONOS% (MANUAL) 5 % (2-9); OVALOCYTES 1+; SEGS% (MANUAL) 88 % (42-75)
[2019-05-15 05:56] LABS: BASOPHILS # (AUTO) 0.01 x10^3/uL (0-0.1); BASOPHILS % (AUTO) 0 % (0-1); EOSINOPHILS % (AUTO) 0 % (1-7); LYMPHOCYTES # (AUTO) 0.82 x10^3/uL (1-3.4); LYMPHOCYTES % (AUTO) 3 % (22-44); MONOCYTES # (AUTO) 1.37 x10^3/uL (0.2-0.8); MONOCYTES % (AUTO) 5 % (2-9); NEUTROPHILS # (AUTO) 25.27 x10^3/uL (1.8-6.8); NEUTROPHILS % (AUTO) 92 % (42-75)
[2019-05-15] MEDS ORDERED: HYDROmorphone 1 MG/ML, 1ML INJ IV ONE (06:00)
[2019-05-15 06:38] LABS: MICROSCOPIC INDICATED
--- NOTE | 2019-05-15 06:59 | NUR ---
PT IS RESTING QUIETLY, PAIN DOWN TO 3/10. REPORT TO BALDEMAR SCOTT. POC DISCUSSED, CARE ASSUMED. PT TO BE DC'D HOME IF URINE CLEAR.
[2019-05-15 07:15] VITALS: BP 105/65
[2019-05-15 07:18] LABS: CULTURE INDICATED? NO
== END 2019-05-15 07:19 ==
LOC: ED 07:13
DX: R11.2 Nausea with vomiting, unspecified (principal); E86.0 Dehydration; D72.829 Elevated white blood cell count, unspecified; I10 Essential (primary) hypertension; K21.9 Gastro-esophageal reflux disease without esophagitis; Z87.891 Personal history of nicotine dependence
CPT/HCPCS: 36415; 74022; 80053; 81001; 83735; 85025; 93005; 96361; 96374; 96375; 96376; 99284; J1170; J2405; J7030

== ENCOUNTER 2019-06-13 10:23 | Emergency (ER) | payer MEDICARE, MEDICAID ==
[~2019-06-13] VITALS: Ht 182.9 cm; Wt 64.0 kg
--- NOTE | 2019-06-13 10:51 | NUR ---
PT WITH C/O BACK AND NECK PAIN. STATES HE HAS CHRONIC BACK/NECK PAIN THAT HE TAKES OXYCODONE FOR. PT STATES PAIN BECAME WORSE LAST NIGHT, HE ALSO BEGAN HAVING L ABD PAIN AND NAUSEA, HAS BEEN DRY HEAVING ALL MORNING PT WITH ELEVATED BP MD AWARE, PT STATES HE TOOK BP MEDS LAST NIGHT. PT TO BP, CONT PULSE OX
--- NOTE | 2019-06-13 10:55 | NUR ---
COLLABORATING SUPERVISING PHYSICIAN: RECEIVED A CALL FROM MOTHER WHO IS REQUESTING HTN TO BE ADDRESSED. "I DONT WANT HIM TO HAVE A STROKE" NOTIFED DR. VIVEROS OF ABOVE.
[2019-06-13] MEDS ORDERED: SODIUM CHLORIDE 0.9% 1,000ML IVBOLUS ONE (11:00)
[2019-06-13] MEDS ORDERED: DIPHENHYDRAMINE 50 MG/ML, 1ML IVPush ONE (11:00)
[2019-06-13] MEDS ORDERED: METOCLOPRAMIDE 5 MG/ML, 2ML IVPush ONE (11:00)
[2019-06-13] MEDS ORDERED: DIPHENHYDRAMINE 50 MG/ML, 1ML ONE (11:03)
[2019-06-13] MEDS ORDERED: HYDROmorphone 1 MG/ML, 1ML INJ ONE ×2 (11:03→12:03)
[2019-06-13] MEDS ORDERED: METOCLOPRAMIDE 5 MG/ML, 2ML ONE (11:03)
[2019-06-13] MEDS: HYDROmorphone 1 MG/ML, 1ML INJ IVPush PRN ×2 (11:06→12:05)
[2019-06-13 11:22] LABS: MEAN CORPUSCULAR HEMOGLOBIN 26.6 pg (27.5-34.5); MEAN CORPUSCULAR HGB CONC 32.1 g/dL (33.2-36.2); MEAN PLATELET VOLUME 7.3 fL (7.4-10.4); PLATELET COUNT 297 x10^3/uL (130-400); RED BLOOD COUNT 5.19 x10^6/uL (4.38-5.82); RED CELL DISTRIBUTION WIDTH 14.7 % (9.4-14.8)
[2019-06-13 11:32] LABS: ANION GAP 8 mmol/L (5-15); CALCIUM 9.1 mg/dL (8.5-10.1); CHLORIDE 105 mmol/L (98-107)
[2019-06-13 11:37] LABS: ALANINE AMINOTRANSFERASE 23 U/L (12-78); ALKALINE PHOSPHATASE 81 U/L (45-117); BILIRUBIN,TOTAL 0.6 mg/dL (0.2-1.0); CREATININE 1.06 mg/dL (0.7-1.3); TOTAL PROTEIN 8.8 g/dL (6.4-8.2)
[2019-06-13] MEDS ORDERED: ENALAPRILAT 1.25 MG/ML, 2ML IV ONE (12:00)
[2019-06-13] MEDS ORDERED: SODIUM CHLORIDE FLUSH 10ML SYR IVF ONE (12:00)
[2019-06-13] MEDS ORDERED: ENALAPRILAT 1.25 MG/ML, 1ML ONE (12:03)
--- NOTE | 2019-06-13 12:06 | NUR ---
PT MEDICATED WITH ADDITIONAL PAIN MEDICATION AND VASOTEC PER MD/JUL. BP LOWER 149/100. PT STATES PAIN JUST A LITTLE BETTER POST FIRST PAIN TOOL DESIGN DRAFTER, WILL REASSESS. NO OTHER NEEDS AT THIS TIME
[2019-06-13 12:17] LABS: MD YES
[2019-06-13 12:17] LABS: MICROSCOPIC INDICATED
[2019-06-13 12:18] LABS: BAND#(MANUAL) 0.68 x10^3/uL; BANDS%(MANUAL) 3 % (0-7); LYMPH#(MANUAL) 2.25 x10^3/uL (1-3.4); LYMPHS% (MANUAL) 10 % (22-44); MONOS#(MANUAL) 0.68 x10^3/uL (0.3-2.7); MONOS% (MANUAL) 3 % (2-9); SEGS% (MANUAL) 84 % (42-75)
[2019-06-13 12:20] LABS: HYPOCHROMIA 1+; OVALOCYTES 1+
[2019-06-13 12:21] LABS: <PLATELET ESTIMATE> ADEQUATE; <PLT MORPHOLOGY> NORMAL PLT MORPH
[2019-06-13 12:28] LABS: CULTURE INDICATED? NO
--- NOTE | 2019-06-13 12:43 | NUR ---
NATURALIST: RECEIVED A CALL FROM MOTHER, SHE STATES HE IS NOT ANSWERING HIS PHONE AND IS WORRIED ABOUT HIM. EXPLAINED HIPPA AND THAT THIS RN WILL NOTIFY PT TO CALL HIS MOTHER.
--- NOTE | 2019-06-13 12:48 | NUR ---
BREAK RN: PT UPRIGHT ON GURNEY WITH EYES CLOSED, RESPONDS APPROP TO STAFF, NO NEEDS AT THIS TIME, CALL LIGHT WITHIN REACH.
[2019-06-13 12:54] VITALS: BP 109/71
== END 2019-06-13 14:33 | disposition home or self-care (01) ==
LOC: ED 11:50
DX: D72.829 Elevated white blood cell count, unspecified (principal); R10.9 Unspecified abdominal pain; M54.5 Low back pain; I10 Essential (primary) hypertension; E03.9 Hypothyroidism, unspecified
CPT/HCPCS: 36415; 80053; 81001; 83690; 85025; 96361; 96374; 96375; 96376; 99283; J1170; J1200; J2765; J7030

== ENCOUNTER 2019-08-10 09:12 | Inpatient (IN) | payer MEDICARE, MEDICAID ==
[~2019-08-10] VITALS: Ht 185.4 cm; Wt 61.2 kg
--- NOTE | 2019-08-10 09:53 | NUR ---
SENIOR QUALITY ASSURANCE SPECIALIST: PT TO ROOM FROM GERALDO GARCIA
[2019-08-10] MEDS ORDERED: SODIUM CHLORIDE 0.9% 1,000 ML IV ONE (10:15)
--- NOTE | 2019-08-10 10:53 | NUR ---
REPORT RECEIEVED FROM BALDEMAR ALLEN. ASSUMED CARE
--- NOTE | 2019-08-10 10:57 | NUR ---
REPORT TO BALDEMAR ULLOA WHO ASSUMED CARE OF PT.
[2019-08-10 11:18] LABS: MEAN CORPUSCULAR HEMOGLOBIN 26.3 pg (27.5-34.5); MEAN CORPUSCULAR HGB CONC 31.9 g/dL (33.2-36.2); MEAN CORPUSCULAR VOLUME 82.2 fL (81-97); MEAN PLATELET VOLUME 7.5 fL (7.4-10.4); PLATELET COUNT 292 x10^3/uL (130-400); RED BLOOD COUNT 5.47 x10^6/uL (4.38-5.82); RED CELL DISTRIBUTION WIDTH 15.6 % (9.4-14.8)
[2019-08-10 11:22] LABS: ALANINE AMINOTRANSFERASE 25 U/L (12-78); ALBUMIN 4.1 g/dL (3.4-5.0); ANION GAP 4 mmol/L (5-15); CHLORIDE 105 mmol/L (98-107); CREATININE 1.13 mg/dL (0.7-1.3)
[2019-08-10 11:23] LABS: ALKALINE PHOSPHATASE 103 U/L (45-117); BILIRUBIN,TOTAL 0.6 mg/dL (0.2-1.0); MICROSCOPIC INDICATED; TOTAL PROTEIN 9.3 g/dL (6.4-8.2)
[2019-08-10] MEDS ORDERED: ONDANSETRON 2MG/ML, 2ML IVPush ONE (11:30)
[2019-08-10 11:33] LABS: CULTURE INDICATED? NO
[2019-08-10] MEDS ORDERED: ONDANSETRON 2MG/ML, 2ML ONE ×2 (11:42→19:36)
[2019-08-10] MEDS ORDERED: HYDROmorphone 1 MG/ML, 1ML INJ ONE ×4 (11:42→19:36)
[2019-08-10] MEDS: HYDROmorphone 2 MG/ML, 1ML IVPush PRN ×4 (11:47→19:39)
[2019-08-10 11:48] LABS: MD YES
[2019-08-10 11:50] LABS: BAND#(MANUAL) 0.46 x10^3/uL; BANDS%(MANUAL) 2 % (0-7); LYMPH#(MANUAL) 0.69 x10^3/uL (1-3.4); LYMPHS% (MANUAL) 3 % (22-44); MONOS#(MANUAL) 0.92 x10^3/uL (0.3-2.7); MONOS% (MANUAL) 4 % (2-9); SEG#(MANUAL) 20.93 x10^3/uL (1.8-6.8); SEGS% (MANUAL) 91 % (42-75)
[2019-08-10 11:51] LABS: HYPOCHROMIA 1+
--- NOTE | 2019-08-10 11:51 | NUR ---
PT MEDICATED PER MAR
[2019-08-10 11:52] LABS: <PLATELET ESTIMATE> ADEQUATE; <PLT MORPHOLOGY> NORMAL PLT MORPH; ANISOCYTOSIS 1+; OVALOCYTES 1+
[2019-08-10] MEDS ORDERED: VANCOMYCIN PER PHARMACY MC PRN ×2 (12:30→13:00)
[2019-08-10] MEDS ORDERED: CEFEPIME 1 GM in DEXTROSE 5% 50 ML IV ONE ×2 (12:30→13:00)
[2019-08-10] MEDS ORDERED: D5%-0.45NACL+KCL 20MEQ 1,000 ML IV SCH (12:35)
--- NOTE | 2019-08-10 12:40 | NUR ---
PT RESTING IN [facility]. TBADM. IV ABX INFUSING
[2019-08-10] MEDS ORDERED: ONDANSETRON ODT 4 MG PO PRN (13:00)
[2019-08-10] MEDS ORDERED: CEFEPIME 1 GM in DEXTROSE 5% 100 ML IV ONE (13:00)
[2019-08-10] MEDS ORDERED: ACETAMINOPHEN 325 MG TABLET PO PRN (13:00)
[2019-08-10] MEDS ORDERED: IBUPROFEN 600 MG TABLET PO PRN (13:00)
[2019-08-10] MEDS ORDERED: VANCOMYCIN 1,600 MG in SODIUM CHLORIDE 0.9% 250 ML IV ONE (14:00)
[2019-08-10] MEDS ORDERED: DIPHENHYDRAMINE 25 MG CAPSULE ONE (14:14)
[2019-08-10] MEDS: DIPHENHYDRAMINE 25 MG CAPSULE PO PRN ×2 (14:16→22:32)
--- NOTE | 2019-08-10 14:17 | NUR ---
PT CO OF ITCHING. MEDICATED PER JUL.
[2019-08-10] MEDS ORDERED: OMNIPAQUE 350 MG/ML, 100ML BOTTLE ONE (15:08)
[2019-08-10] MEDS: OXYcodone IR 5MG TABLET PO SCH ×2 (16:00→22:31)
--- NOTE | 2019-08-10 16:07 | NUR ---
PT RESTING IN [facility]. WATCHING TV. REPORTS PAIN RELIEF AND ITCHING RELIEF. NO OTHER NEEDS AT THIS TIME
[2019-08-10] MEDS ORDERED: ENOXAPARIN 40 MG/0.4 ML ONE (16:38)
[2019-08-10] MEDS: ENOXAPARIN 40 MG/0.4 ML SQ SCH (16:41)
[2019-08-10] MEDS: SODIUM CHLORIDE INHALATION 3%, 4 ML NPPB SCH (17:00)
--- NOTE | 2019-08-10 17:12 | NUR ---
BREAK RN: PATIENT MEDICATED PER EMAR, TOLERATED WELL. VSArthur, MARTINEZ AT THIS TIME, MOTHER IN ROOM.
--- NOTE | 2019-08-10 18:08 | NUR ---
PT RESTING IN [facility]. PLACED ON 2 LITERS O2 VIA NC.
--- NOTE | 2019-08-10 18:25 | NUR ---
PT MOVED TO A HOSPITAL BED
[2019-08-10] MEDS: ACYCLOVIR 400 MG TABLET PO SCH ×2 (18:40→22:31)
[2019-08-10] MEDS: ONDANSETRON 2MG/ML, 2ML IVPush PRN (19:39)
--- NOTE | 2019-08-10 20:41 | NUR ---
PT BP LOW. MD NOTIFIED. SEE MAR FOR INTERVENTIONS
--- NOTE | 2019-08-10 20:58 | NUR ---
PT BP HAS IMPROVED TO 119/74 AFTER NS BOLUS. PT WATCHING TV.
[2019-08-10] MEDS ORDERED: SODIUM CHLORIDE 0.9% 1,000ML IVBOLUS ONE (21:00)
[2019-08-10] MEDS ORDERED: VANCOMYCIN 1,300 MG in SODIUM CHLORIDE 0.9% 250 ML IV SCH (22:30)
[2019-08-10] MEDS ORDERED: PHARMACOKINETIC CONSULTATION MC ONE (22:30)
[2019-08-10] MEDS ORDERED: PHARMACOKINETIC MONITORING MC PRN (22:30)
[2019-08-10] MEDS: DOXAZOSIN 1MG TABLET PO SCH (22:44)
[2019-08-10] MEDS: CEFEPIME 2 GM in DEXTROSE 5% 100 ML IV SCH (23:01)
[2019-08-11] VITALS (8 sets, daily range): BP systolic 104–182; BP diastolic 65–132
[2019-08-11] MEDS: VANCOMYCIN 1,300 MG in SODIUM CHLORIDE 0.9% 250 ML IV SCH ×2 (01:25→12:13)
[2019-08-11 05:02] LABS: BASOPHILS # (AUTO) 0.03 x10^3/uL (0-0.1); BASOPHILS % (AUTO) 0 % (0-1); EOSINOPHILS % (AUTO) 1 % (1-7); LYMPHOCYTES % (AUTO) 16 % (22-44); MD NO; MEAN CORPUSCULAR HEMOGLOBIN 26.2 pg (27.5-34.5); MEAN CORPUSCULAR HGB CONC 31.9 g/dL (33.2-36.2); MEAN CORPUSCULAR VOLUME 82.2 fL (81-97); MEAN PLATELET VOLUME 7.7 fL (7.4-10.4); MONOCYTES # (AUTO) 0.84 x10^3/uL (0.2-0.8); MONOCYTES % (AUTO) 8 % (2-9); NEUTROPHILS # (AUTO) 7.48 x10^3/uL (1.8-6.8); NEUTROPHILS % (AUTO) 74 % (42-75); PLATELET COUNT 215 x10^3/uL (130-400); RED BLOOD COUNT 4.64 x10^6/uL (4.38-5.82); RED CELL DISTRIBUTION WIDTH 15.1 % (9.4-14.8)
[2019-08-11 05:08] LABS: ANION GAP 3 mmol/L (5-15); CALCIUM 8.2 mg/dL (8.5-10.1); CHLORIDE 110 mmol/L (98-107)
[2019-08-11 05:20] LABS: ALANINE AMINOTRANSFERASE 17 U/L (12-78); ALKALINE PHOSPHATASE 63 U/L (45-117); BILIRUBIN,TOTAL 0.6 mg/dL (0.2-1.0); CREATININE 0.98 mg/dL (0.7-1.3); TOTAL PROTEIN 6.9 g/dL (6.4-8.2)
[2019-08-11] MEDS: ACYCLOVIR 400 MG TABLET PO SCH ×5 (05:46→21:17)
[2019-08-11] MEDS: LEVOTHYROXINE 112 MCG TABLET PO SCH (05:47)
[2019-08-11] MEDS: OXYcodone IR 5MG TABLET PO SCH ×4 (05:48→21:17)
[2019-08-11] MEDS: CEFEPIME 2 GM in DEXTROSE 5% 100 ML IV SCH ×3 (07:49→23:24)
[2019-08-11] MEDS: SODIUM CHLORIDE INHALATION 3%, 4 ML NPPB SCH ×2 (10:33→21:00)
[2019-08-11] MEDS: ENOXAPARIN 40 MG/0.4 ML SQ SCH (12:13)
--- NOTE | 2019-08-11 13:57 | NUR ---
REC: Home Addendum: 08/11/19 at 1357 by Aura BUSH Amended: Links added.
[2019-08-11] MEDS: hydrALAzine 20 MG/ML, 1ML IVPush PRN (17:18)
[2019-08-11] MEDS ORDERED: LABETALOL 20 MG/4 ML ONE (18:10)
[2019-08-11] MEDS: KETOROLAC 30 MG/1 ML IV PRN (18:16)
[2019-08-11] MEDS: ONDANSETRON 2MG/ML, 2ML IVPush PRN (18:16)
[2019-08-11] MEDS ORDERED: LABETALOL 5MG/ML, 20ML IVPush PRN (18:30)
[2019-08-11] MEDS: DOXAZOSIN 1MG TABLET PO SCH (21:19)
[2019-08-12] VITALS (7 sets, daily range): BP systolic 96–154; BP diastolic 61–118
[2019-08-12] MEDS: VANCOMYCIN 1,300 MG in SODIUM CHLORIDE 0.9% 250 ML IV SCH ×2 (01:50→13:13)
[2019-08-12] MEDS: ONDANSETRON 2MG/ML, 2ML IVPush PRN ×2 (03:30→16:57)
[2019-08-12] MEDS: KETOROLAC 30 MG/1 ML IV PRN (03:32)
[2019-08-12 05:32] LABS: CHLORIDE 107 mmol/L (98-107)
[2019-08-12 05:36] LABS: BASOPHILS # (AUTO) 0.02 x10^3/uL (0-0.1); BASOPHILS % (AUTO) 0 % (0-1); EOSINOPHILS # (AUTO) 0.03 x10^3/uL (0-0.4); EOSINOPHILS % (AUTO) 0 % (1-7); LYMPHOCYTES # (AUTO) 1.13 x10^3/uL (1-3.4); LYMPHOCYTES % (AUTO) 14 % (22-44); MD NO; MEAN CORPUSCULAR HEMOGLOBIN 26.4 pg (27.5-34.5); MEAN CORPUSCULAR HGB CONC 32.1 g/dL (33.2-36.2); MEAN CORPUSCULAR VOLUME 82.1 fL (81-97); MEAN PLATELET VOLUME 7.6 fL (7.4-10.4); MONOCYTES # (AUTO) 0.58 x10^3/uL (0.2-0.8); MONOCYTES % (AUTO) 7 % (2-9); NEUTROPHILS # (AUTO) 6.56 x10^3/uL (1.8-6.8); NEUTROPHILS % (AUTO) 79 % (42-75); PLATELET COUNT 213 x10^3/uL (130-400); RED BLOOD COUNT 4.82 x10^6/uL (4.38-5.82); RED CELL DISTRIBUTION WIDTH 15.2 % (9.4-14.8)
[2019-08-12 05:41] LABS: ANION GAP 4 mmol/L (5-15); CALCIUM 8.7 mg/dL (8.5-10.1); CREATININE 0.97 mg/dL (0.7-1.3)
[2019-08-12] MEDS: LEVOTHYROXINE 112 MCG TABLET PO SCH (06:08)
[2019-08-12] MEDS: OXYcodone IR 5MG TABLET PO SCH ×4 (06:08→20:23)
[2019-08-12] MEDS: ACYCLOVIR 400 MG TABLET PO SCH ×5 (06:08→20:23)
[2019-08-12] MEDS: CEFEPIME 2 GM in DEXTROSE 5% 100 ML IV SCH ×3 (06:46→22:47)
[2019-08-12] MEDS: SODIUM CHLORIDE INHALATION 3%, 4 ML NPPB SCH ×3 (07:38→21:00)
[2019-08-12] MEDS: hydrALAzine 20 MG/ML, 1ML IVPush PRN (12:15)
[2019-08-12] MEDS: ENOXAPARIN 40 MG/0.4 ML SQ SCH (13:00)
[2019-08-12 13:05] LABS: CREATININE 1.12 mg/dL (0.7-1.3); VANCOMYCIN,TROUGH 16.1 mcg/mL (5.0-10.0)
[2019-08-12] MEDS: DOXAZOSIN 1MG TABLET PO SCH (20:23)
[2019-08-12] MEDS: DIPHENHYDRAMINE 25 MG CAPSULE PO PRN (22:54)
[2019-08-13] MEDS: VANCOMYCIN 1,300 MG in SODIUM CHLORIDE 0.9% 250 ML IV SCH ×2 (00:52→13:00)
[2019-08-13 00:53] VITALS: BP 144/97
[2019-08-13 05:08] LABS: BASOPHILS # (AUTO) 0.05 x10^3/uL (0-0.1); BASOPHILS % (AUTO) 1 % (0-1); EOSINOPHILS # (AUTO) 0.16 x10^3/uL (0-0.4); EOSINOPHILS % (AUTO) 2 % (1-7); LYMPHOCYTES # (AUTO) 1.51 x10^3/uL (1-3.4); LYMPHOCYTES % (AUTO) 18 % (22-44); MD NO; MEAN CORPUSCULAR HEMOGLOBIN 26.3 pg (27.5-34.5); MEAN CORPUSCULAR HGB CONC 31.8 g/dL (33.2-36.2); MEAN CORPUSCULAR VOLUME 82.8 fL (81-97); MEAN PLATELET VOLUME 6.9 fL (7.4-10.4); MONOCYTES % (AUTO) 9 % (2-9); NEUTROPHILS % (AUTO) 71 % (42-75); PLATELET COUNT 261 x10^3/uL (130-400); RED CELL DISTRIBUTION WIDTH 15.6 % (9.4-14.8)
[2019-08-13 05:22] LABS: ANION GAP 5 mmol/L (5-15); CALCIUM 8.8 mg/dL (8.5-10.1); CHLORIDE 107 mmol/L (98-107)
[2019-08-13 05:23] LABS: CREATININE 1.01 mg/dL (0.7-1.3)
[2019-08-13] MEDS: LEVOTHYROXINE 112 MCG TABLET PO SCH (06:01)
[2019-08-13] MEDS: ACYCLOVIR 400 MG TABLET PO SCH ×3 (06:02→14:00)
[2019-08-13] MEDS: OXYcodone IR 5MG TABLET PO SCH ×2 (06:02→09:36)
[2019-08-13] MEDS: CEFEPIME 2 GM in DEXTROSE 5% 100 ML IV SCH (06:32)
[2019-08-13] MEDS: SODIUM CHLORIDE INHALATION 3%, 4 ML NPPB SCH (07:30)
[2019-08-13 07:38] VITALS: BP 132/85
[2019-08-13] MEDS: ENOXAPARIN 40 MG/0.4 ML SQ SCH (13:00)
[2019-08-13 13:11] VITALS: BP 150/99
[2019-08-13] MEDS ORDERED: AMOX600S36 PO (13:23)
== END 2019-08-13 15:03 | disposition home or self-care (01) | DRG 871 ==
LOC: SUATTDRO 12:17 → ED 12:33 → EDIP 12:34 → ED 12:50 → 4WST 22:11 → 4NW 08-11 16:45
PROVIDERS: ADMIT Hospitalist; ATTEND Hospitalist
DX: A41.9 Sepsis, unspecified organism (principal); J18.9 Pneumonia, unspecified organism; F11.20 Opioid dependence, uncomplicated; I10 Essential (primary) hypertension; G89.29 Other chronic pain; R13.10 Dysphagia, unspecified; K21.9 Gastro-esophageal reflux disease without esophagitis; E03.9 Hypothyroidism, unspecified; Y95 Nosocomial condition; N40.0 Benign prostatic hyperplasia without lower urinary tract symptoms; Z80.8 Family history of malignant neoplasm of other organs or systems; Z85.818 Personal history of malignant neoplasm of other sites of lip, oral cavity, and pharynx; Z85.89 Personal history of malignant neoplasm of other organs and systems; Z87.891 Personal history of nicotine dependence; Z86.011 Personal history of benign neoplasm of the brain; Z92.21 Personal history of antineoplastic chemotherapy; Z92.3 Personal history of irradiation
CPT/HCPCS: 36415; 74022; 74177; 80048; 80053; 80202; 81001; 82565; 83605; 83690; 84145; 84443; 85025; 87040; 93005; 94640; 96361; 96365; 96375; 96376; 99285; G0378; J0692; J1170; J1650; J1885; J2405; J3370; Q0162; Q9967; J0360; J3480; J7030; J7050; Q0163

== ENCOUNTER 2019-08-24 16:56 | Inpatient (IN) | payer MEDICARE, MEDICAID ==
[~2019-08-24] VITALS: Ht 185.4 cm; Wt 61.5 kg
--- NOTE | 2019-08-24 17:15 | NUR ---
PT TO ROOM 15 PER PEDIS. PT C/O ABDOMINAL PAIN THAT STARTED YESTERDAY. PT STATES "I WENT TO THE DOCTOR DRIVE THRU TODAY, AND THEY PUT ME ON 2 ANTIBIOTICS." PT WAS SEEN FOR PNEUMONIA LAST WEEK. PT HAS A HISTORY OF THYROID CA. UNDER TRIMMER DONE, MOTHER IN ROOM ANSWERING ALL QUESTIONS BEFORE PATIENT CAN RESPOND. MD IN TO ASSESS PATIENT DURING UNDER TRIMMER. MOM QUESTIONS LUNG SOUNDS THE DRIVE THRU DOCTOR SAID HIS LUNGS SOUND HORRIBLE. PT HAS FAINT EXP WHEEZING FROM THE POSTERIOR ASPECT. XRAY AT BEDSIDE, WILL PUT IV IN AFTER XRAY IS FINISHED.
[2019-08-24] MEDS ORDERED: SODIUM CHLORIDE FLUSH 10ML SYR IVF ONE (17:30)
[2019-08-24] MEDS ORDERED: SODIUM CHLORIDE 0.9% 1,000ML IVBOLUS ONE (17:30)
[2019-08-24] MEDS ORDERED: ONDANSETRON 2MG/ML, 2ML IVPush ONE (17:30)
[2019-08-24] MEDS ORDERED: ALBU0.63 NEB (17:32)
[2019-08-24] MEDS ORDERED: AZIT1PAC PO (17:32)
[2019-08-24] MEDS ORDERED: [UNRECOGNIZED DRUG - CODE] HHN (17:32)
[2019-08-24] MEDS ORDERED: CEFD125S3 PO (17:32)
[2019-08-24] MEDS ORDERED: ONDANSETRON 2MG/ML, 2ML ONE (18:05)
--- NOTE | 2019-08-24 18:15 | NUR ---
IV STARTED WITH NS BOLUS READY TO GO AND IV ZOFRAN. IV STARTED WITH ONE ATTEMPT ON PATIENT RIGHT FOREARM. PT TOLERATED PROCEDURE WELL. MOM REQUESTING PAIN MEDICATIONS FOR PATIENT. RN INFORMS MOM AND PATIENT, THAT I WILL REQUEST PAIN MEDICATIONS, BUT IT CAN TAKE UP TO 30 MINUTES OR LONGER, I HAVE OTHER PATIENTS THAT ALSO NEED MEDICATIONS. PATIENT AND MOM VERBALIZE UNDERSTANDING. RN PLACES THE REQUEST FOR PAIN MEDICATION IN THE PATIENT'S ROOM. PT GIVEN A URINAL TO COLLECT A URINE SAMPLE.
[2019-08-24 18:45] LABS: MEAN CORPUSCULAR HEMOGLOBIN 26.5 pg (27.5-34.5); MEAN CORPUSCULAR HGB CONC 32.4 g/dL (33.2-36.2); MEAN PLATELET VOLUME 7.8 fL (7.4-10.4); PLATELET COUNT 267 x10^3/uL (130-400); RED BLOOD COUNT 5.01 x10^6/uL (4.38-5.82); RED CELL DISTRIBUTION WIDTH 15.9 % (9.4-14.8)
[2019-08-24 18:50] LABS: ALANINE AMINOTRANSFERASE 19 U/L (12-78); ALBUMIN 3.7 g/dL (3.4-5.0); ANION GAP 6 mmol/L (5-15); CHLORIDE 103 mmol/L (98-107); CREATININE 0.94 mg/dL (0.7-1.3)
[2019-08-24 18:52] LABS: ALKALINE PHOSPHATASE 74 U/L (45-117); BILIRUBIN,TOTAL 0.5 mg/dL (0.2-1.0); TOTAL PROTEIN 8.7 g/dL (6.4-8.2)
[2019-08-24 19:19] LABS: MD YES
[2019-08-24] MEDS ORDERED: MORPHINE SULFATE 4 MG/ML, 1ML ONE (19:29)
[2019-08-24] MEDS ORDERED: MORPHINE SULFATE 4 MG/ML, 1ML IVPush PRN ×2 (19:30)
[2019-08-24] MEDS ORDERED: HYDROmorphone 1 MG/ML, 1ML INJ IV ONE ×2 (19:33→21:00)
[2019-08-24] MEDS ORDERED: HYDROmorphone 1 MG/ML, 1ML INJ ONE (19:37)
--- NOTE | 2019-08-24 19:47 | NUR ---
TASK RN: PATIENT MEDICATED PER EMAR FOR PAIN, TOLERATED WELL
--- NOTE | 2019-08-24 19:50 | NUR ---
PATIENT'S MOTHER OUT OF ROOM, APPROACHING RN IN OTHER PATIENT'S ROOMS REQUESTING PAIN MEDICATION FOR HER SON. RN INFORMS MOTHER THAT REQUEST IS IN, AND I WOULD CHECK ON PAIN MEDICATIONS, BUT SHE NEEDS TO STAY IN PATIENT'S ROOM DUE TO BOTH HIPPA AND THE COVID 19 PROTOCOL'S. PT MOM CONTINUES TO FOLLOW RN DEMANDING PAIN MEDICATION. RN APPROACHES MD IN MOTHERS PRESENCE AND REQUESTS PAIN MEDICATION. MD ORDERS 4MG OF MORPHINE. MOM INFORMED OF ORDER, BUT RN TELLS MOTHER THE RN WAS IN THE MIDDLE OF GIVING MEDICATIONS TO ANOTHER PATIENT AND WOULD BE IN SHORTLY. PT MOTHER CONTINUES TO FOLLOW RN IN UNIT. RN HAS THE MEDICATION AND IS GOING INTO PATIENTS ROOM TO ADMINISTER MEDICATION. RN BEGINS TO EXPLAIN TO MOTHER OF PATIENT THAT SHE NEEDS TO STAY IN THE ROOM, BUT INSTEAD THE MOTHER CUT RN OFF AND STATES "STOP TALKING NOW. I'M THE ADVOCATE FOR MY SON AND WILL ADVOCATE FOR MY SON LONG IT TAKES, BUT WE WILL NOT TALK ABOUT HIS CARE IN FRONT OF HIM. WE WILL GO TO THE HALLWAY AND DISCUSS HIS CARE" RN INFORMS MOTHER THAT THE PATIENT'S CARE IS THE MOST IMPORTANT ASPECT, AND RN WILL NOT DISCUSS THE PATIENT'S CARE WITH THE MOTHER IN THE HALLWAY AWAY FROM THE PATIENT. MOTHER THEN GETS UP AND STORMS OUT OF THE ROOM. RN THEN TALKS TO PATIENT, INFORMING HIM OF THE MEDICATION HE IS ABOUT TO RECEIVE. RN IS STARTING TO SCAN, PT STATES "OH I'M ALLERGIC TO MORPHINE, IT MAKES ME NAUSEATED" RN INFORMS PATIEN THAT HE HAS RECEIVED ZOFRAN, AND THAT RN WILL INFORM MD OF THE ALLERGY WHICH WAS PUT IN THE COMPUTER UPON ARRIVAL. RN EXITS ROOM, APPROACHES MD AND INFORMS HIM OF THE ALLERGY. NEW ORDER TO BE PLACED FOR DILAUDID. RN THEN INFORMED THAT MOTHER IS REQUESTING A NEW STAFF MEMBER. REPORT GIVEN TO RELIEF RN. RN INFORMED OF NEED TO COLLECT URINE THAT SHOWS COLLECTED, WHEN RN WAS IN ROOM ON COMPUTER, COLLECT WAS MARKED RN WAS GOING TO GET THE URINE PATIENT HAS AND SEND FOR UA.
[2019-08-24] MEDS ORDERED: PIPERACILLIN/TAZO/PMX 3.375GM 50 ML IV ONE (20:00)
[2019-08-24] MEDS ORDERED: VANCOMYCIN 1,600 MG in SODIUM CHLORIDE 0.9% 250 ML IV ONE (20:00)
[2019-08-24] MEDS ORDERED: VANCOMYCIN PER PHARMACY MC PRN (20:00)
--- NOTE | 2019-08-24 20:06 | NUR ---
UA COLLECTED AND SENT. PATIENT'S MOTHER INFORMED BY GABRIELE, SOFTWARE TEST ANALYST RN THAT PATIENT IS TO BE MOVED TO RESPIRATORY SECTION TOP BECOME COVID19 R/O, ERP TO DO COVID19 SWAB.
[2019-08-24 20:19] LABS: MICROSCOPIC NOT IND
--- NOTE | 2019-08-24 20:19 | NUR ---
PT MOTHER CLEARED BY PATIENT TO RECIEVE PROTECTED HEALTH INFORMATION OVER PHONE; CODE WORD: 3624
[2019-08-24 20:22] LABS: CULTURE INDICATED? NO
--- NOTE | 2019-08-24 20:26 | NUR ---
REPORT RECEIVED FROM BALDEMAR DEVLIN. ASSUMED CARE OF PT.
[2019-08-24 20:29] LABS: BAND#(MANUAL) 0.22 x10^3/uL; BANDS%(MANUAL) 1 % (0-7); LYMPH#(MANUAL) 0.87 x10^3/uL (1-3.4); LYMPHS% (MANUAL) 4 % (22-44); MONOS#(MANUAL) 1.09 x10^3/uL (0.3-2.7); MONOS% (MANUAL) 5 % (2-9); SEG#(MANUAL) 19.53 x10^3/uL (1.8-6.8); SEGS% (MANUAL) 90 % (42-75)
[2019-08-24 20:30] LABS: <PLATELET ESTIMATE> ADEQUATE; <PLT MORPHOLOGY> NORMAL PLT MORPH; ANISOCYTOSIS 1+; OVALOCYTES 1+
[2019-08-24] MEDS ORDERED: SODIUM CHLORIDE INHALATION 7%, 4 ML NPPB ONE (20:30)
--- NOTE | 2019-08-24 20:59 | NUR ---
DISCUSSED BREATHING TREATMENT WITH RT SHAKIR AND PT. PT GIVES HIMSELF BREATHING TRX TWICE A DAY. PT CURRENLTY DENIES NEED FOR BREATHING TRX AND VERBALIZES UNDERSTANDING AND COMFORT WITH NEB TREATMENTS. PT DOES NOT APPEAR IN ACUTE RESP DISTRESS AT THIS TIME. PT ABLE TO SPEAK IN FULL 5-7 WORD SENTENCES W/O DIFFICULTY. RESP EVEN AND UNLABORED. PT REQUESTING PAIN MEDICATION. CALLED MD TO CHANGE MEDICATION PRN MEDICATION ORDERED WAS MORHPINE WHICH PT IS ALLERGIC TO.
[2019-08-24] MEDS ORDERED: HYDROmorphone 2 MG/ML, 1ML ONE (21:04)
[2019-08-25] MEDS ORDERED: hydrALAzine 20 MG/ML, 1ML IVPush PRN
[2019-08-25] MEDS ORDERED: POLYETHYLENE GLYCOL 17 GM PACKET PO PRN
[2019-08-25] MEDS ORDERED: ACETAMINOPHEN 325 MG TABLET PO PRN
[2019-08-25] MEDS ORDERED: KETOROLAC 30 MG/1 ML IV PRN
[2019-08-25] MEDS ORDERED: TRAZODONE 50MG TABLET PO PRN
[2019-08-25] MEDS ORDERED: DIPHENHYDRAMINE 25 MG CAPSULE PO PRN
[2019-08-25] MEDS ORDERED: BISACODYL 10 MG SUPP PR PRN
[2019-08-25 00:05] VITALS: BP 145/103
[2019-08-25] MEDS ORDERED: VANCOMYCIN PER PHARMACY MC PRN (00:30)
[2019-08-25] MEDS: ONDANSETRON 2MG/ML, 2ML IVPush PRN ×2 (00:30→11:48)
[2019-08-25] MEDS ORDERED: PHARMACOKINETIC MONITORING MC PRN (01:00)
[2019-08-25] MEDS ORDERED: PHARMACOKINETIC CONSULTATION MC ONE (01:00)
[2019-08-25] MEDS: PIPERACILLIN/TAZO/PMX 3.375GM 50 ML IV SCH ×4 (01:26→17:30)
[2019-08-25] MEDS: SODIUM CHLORIDE 0.9% 1,000 ML IV SCH ×2 (01:30→17:30)
[2019-08-25] MEDS: OXYcodone IR 5MG TABLET PO SCH ×2 (04:46)
[2019-08-25 05:25] LABS: BASOPHILS # (AUTO) 0.01 x10^3/uL (0-0.1); BASOPHILS % (AUTO) 0 % (0-1); EOSINOPHILS # (AUTO) 0.04 x10^3/uL (0-0.4); EOSINOPHILS % (AUTO) 0 % (1-7); LYMPHOCYTES # (AUTO) 1.13 x10^3/uL (1-3.4); LYMPHOCYTES % (AUTO) 7 % (22-44); MD NO; MEAN CORPUSCULAR HEMOGLOBIN 26.2 pg (27.5-34.5); MEAN CORPUSCULAR HGB CONC 31.7 g/dL (33.2-36.2); MEAN CORPUSCULAR VOLUME 82.7 fL (81-97); MEAN PLATELET VOLUME 7.8 fL (7.4-10.4); MONOCYTES # (AUTO) 1.09 x10^3/uL (0.2-0.8); MONOCYTES % (AUTO) 7 % (2-9); NEUTROPHILS # (AUTO) 14.35 x10^3/uL (1.8-6.8); NEUTROPHILS % (AUTO) 86 % (42-75); PLATELET COUNT 250 x10^3/uL (130-400); RED BLOOD COUNT 4.86 x10^6/uL (4.38-5.82); RED CELL DISTRIBUTION WIDTH 15.8 % (9.4-14.8)
[2019-08-25 05:34] LABS: ANION GAP 5 mmol/L (5-15); CALCIUM 8.6 mg/dL (8.5-10.1); CHLORIDE 107 mmol/L (98-107)
[2019-08-25] MEDS: LEVOTHYROXINE 112 MCG TABLET PO SCH (06:40)
[2019-08-25 07:25] VITALS: BP 122/76
[2019-08-25] MEDS ORDERED: SODIUM PHOSPHATE 10 MMOL in SODIUM CHLORIDE 0.9% 500 ML IV ONE (07:30)
[2019-08-25] MEDS: DOXAZOSIN 1MG TABLET PO SCH ×3 (08:05→21:08)
[2019-08-25] MEDS: VANCOMYCIN 1,200 MG in SODIUM CHLORIDE 0.9% 250 ML IV SCH ×2 (08:05→20:30)
[2019-08-25] MEDS: SODIUM CHLORIDE INHALATION 7%, 4 ML NPPB SCH ×3 (08:05→21:35)
[2019-08-25] MEDS: OXYcodone IR 5MG TABLET PO PRN ×2 (11:45→17:30)
[2019-08-25 13:16] VITALS: BP 104/69
[2019-08-25 20:20] VITALS: BP 103/63
[2019-08-25] MEDS: DIPHENHYDRAMINE 50 MG/ML, 1ML IVPush PRN (21:09)
[2019-08-25 22:18] VITALS: BP 146/97
[2019-08-26] MEDS: PIPERACILLIN/TAZO/PMX 3.375GM 50 ML IV SCH ×5 (00:49→23:44)
[2019-08-26 01:16] VITALS: BP 134/88
[2019-08-26] MEDS: SODIUM CHLORIDE 0.9% 1,000 ML IV SCH ×3 (01:32→15:06)
[2019-08-26] MEDS: OXYcodone IR 5MG TABLET PO PRN ×4 (01:32→23:44)
[2019-08-26] MEDS: LEVOTHYROXINE 112 MCG TABLET PO SCH (06:35)
[2019-08-26 06:51] VITALS: BP 138/100
[2019-08-26 07:56] LABS: MEAN CORPUSCULAR HEMOGLOBIN 26.5 pg (27.5-34.5); MEAN CORPUSCULAR HGB CONC 32.2 g/dL (33.2-36.2); MEAN CORPUSCULAR VOLUME 82.2 fL (81-97); MEAN PLATELET VOLUME 6.9 fL (7.4-10.4); PLATELET COUNT 239 x10^3/uL (130-400); RED CELL DISTRIBUTION WIDTH 15.6 % (9.4-14.8)
[2019-08-26] MEDS: VANCOMYCIN 1,200 MG in SODIUM CHLORIDE 0.9% 250 ML IV SCH (08:11)
[2019-08-26] MEDS: ONDANSETRON 2MG/ML, 2ML IVPush PRN (08:11)
[2019-08-26] MEDS: DIPHENHYDRAMINE 50 MG/ML, 1ML IVPush PRN ×2 (08:21→20:14)
[2019-08-26 08:23] LABS: BASOPHILS # (AUTO) 0.06 x10^3/uL (0-0.1); BASOPHILS % (AUTO) 1 % (0-1); EOSINOPHILS # (AUTO) 0.02 x10^3/uL (0-0.4); EOSINOPHILS % (AUTO) 0 % (1-7); LYMPHOCYTES # (AUTO) 0.72 x10^3/uL (1-3.4); LYMPHOCYTES % (AUTO) 6 % (22-44); MD SCAN; MONOCYTES # (AUTO) 0.91 x10^3/uL (0.2-0.8); MONOCYTES % (AUTO) 7 % (2-9); NEUTROPHILS # (AUTO) 11.18 x10^3/uL (1.8-6.8); NEUTROPHILS % (AUTO) 87 % (42-75)
[2019-08-26] MEDS: SODIUM CHLORIDE INHALATION 7%, 4 ML NPPB SCH ×2 (09:00→20:11)
[2019-08-26 12:22] VITALS: BP 123/94
[2019-08-26] MEDS: ENOXAPARIN 40 MG/0.4 ML SQ SCH (16:30)
[2019-08-26] MEDS: VANCOMYCIN 1,400 MG in SODIUM CHLORIDE 0.9% 250 ML IV SCH (19:23)
[2019-08-26 19:55] VITALS: BP 136/92
[2019-08-26] MEDS: DOXAZOSIN 1MG TABLET PO SCH (20:11)
[2019-08-27] MEDS: ONDANSETRON 2MG/ML, 2ML IVPush PRN (01:24)
[2019-08-27 01:49] VITALS: BP 126/80
[2019-08-27 04:24] LABS: BASOPHILS # (AUTO) 0.02 x10^3/uL (0-0.1); BASOPHILS % (AUTO) 0 % (0-1); EOSINOPHILS # (AUTO) 0.13 x10^3/uL (0-0.4); EOSINOPHILS % (AUTO) 2 % (1-7); LYMPHOCYTES # (AUTO) 0.93 x10^3/uL (1-3.4); LYMPHOCYTES % (AUTO) 14 % (22-44); MD NO; MEAN CORPUSCULAR HEMOGLOBIN 26.6 pg (27.5-34.5); MEAN CORPUSCULAR HGB CONC 32.5 g/dL (33.2-36.2); MEAN CORPUSCULAR VOLUME 81.8 fL (81-97); MEAN PLATELET VOLUME 7.3 fL (7.4-10.4); MONOCYTES # (AUTO) 0.62 x10^3/uL (0.2-0.8); MONOCYTES % (AUTO) 9 % (2-9); NEUTROPHILS # (AUTO) 4.96 x10^3/uL (1.8-6.8); NEUTROPHILS % (AUTO) 75 % (42-75); PLATELET COUNT 259 x10^3/uL (130-400); RED CELL DISTRIBUTION WIDTH 15.3 % (9.4-14.8)
[2019-08-27 04:33] LABS: ANION GAP 6 mmol/L (5-15); CALCIUM 8.7 mg/dL (8.5-10.1); CHLORIDE 108 mmol/L (98-107); CREATININE 0.94 mg/dL (0.7-1.3)
[2019-08-27] MEDS: PIPERACILLIN/TAZO/PMX 3.375GM 50 ML IV SCH ×4 (05:30→23:54)
[2019-08-27] MEDS: LEVOTHYROXINE 112 MCG TABLET PO SCH (05:30)
[2019-08-27 06:42] VITALS: BP 145/97
[2019-08-27] MEDS: VANCOMYCIN 1,400 MG in SODIUM CHLORIDE 0.9% 250 ML IV SCH ×2 (07:02→19:36)
[2019-08-27] MEDS: OXYcodone IR 5MG TABLET PO PRN ×2 (08:33→15:56)
[2019-08-27] MEDS: SODIUM CHLORIDE INHALATION 7%, 4 ML NPPB SCH ×2 (09:41→19:36)
[2019-08-27] MEDS: HYDROmorphone 2 MG/ML, 1ML IVPush PRN ×2 (12:34→20:36)
[2019-08-27 12:56] VITALS: BP 139/100
[2019-08-27] MEDS: ENOXAPARIN 40 MG/0.4 ML SQ SCH (15:05)
[2019-08-27 19:31] VITALS: BP 133/94
[2019-08-27] MEDS: DOXAZOSIN 1MG TABLET PO SCH (19:36)
[2019-08-27] MEDS: DIPHENHYDRAMINE 50 MG/ML, 1ML IVPush PRN (19:46)
[2019-08-28 01:04] VITALS: BP 106/67
[2019-08-28] MEDS: ONDANSETRON 2MG/ML, 2ML IVPush PRN (04:56)
[2019-08-28] MEDS: LEVOTHYROXINE 112 MCG TABLET PO SCH (04:56)
[2019-08-28] MEDS: HYDROmorphone 2 MG/ML, 1ML IVPush PRN (04:56)
[2019-08-28 05:13] LABS: BASOPHILS # (AUTO) 0.02 x10^3/uL (0-0.1); BASOPHILS % (AUTO) 0 % (0-1); EOSINOPHILS # (AUTO) 0.23 x10^3/uL (0-0.4); EOSINOPHILS % (AUTO) 3 % (1-7); LYMPHOCYTES # (AUTO) 1.21 x10^3/uL (1-3.4); LYMPHOCYTES % (AUTO) 16 % (22-44); MD NO; MEAN CORPUSCULAR HEMOGLOBIN 25.9 pg (27.5-34.5); MEAN CORPUSCULAR HGB CONC 31.6 g/dL (33.2-36.2); MONOCYTES # (AUTO) 0.71 x10^3/uL (0.2-0.8); MONOCYTES % (AUTO) 9 % (2-9); NEUTROPHILS # (AUTO) 5.46 x10^3/uL (1.8-6.8); NEUTROPHILS % (AUTO) 72 % (42-75); PLATELET COUNT 288 x10^3/uL (130-400); RED BLOOD COUNT 4.98 x10^6/uL (4.38-5.82); RED CELL DISTRIBUTION WIDTH 15.5 % (9.4-14.8)
[2019-08-28 05:25] LABS: ANION GAP 3 mmol/L (5-15); CALCIUM 9.4 mg/dL (8.5-10.1); CHLORIDE 106 mmol/L (98-107)
[2019-08-28 05:28] LABS: CREATININE 1.06 mg/dL (0.7-1.3)
[2019-08-28] MEDS: PIPERACILLIN/TAZO/PMX 3.375GM 50 ML IV SCH (06:17)
[2019-08-28 07:20] VITALS: BP 125/87
[2019-08-28] MEDS: SODIUM CHLORIDE INHALATION 7%, 4 ML NPPB SCH (07:53)
[2019-08-28] MEDS: OXYcodone IR 5MG TABLET PO PRN (07:56)
[2019-08-28] MEDS: VANCOMYCIN 1,400 MG in SODIUM CHLORIDE 0.9% 250 ML IV SCH (07:57)
[2019-08-28] MEDS: DIPHENHYDRAMINE 50 MG/ML, 1ML IVPush PRN (09:41)
[2019-08-28] MEDS ORDERED: AMOX600S4 PO (11:07)
[2019-08-28] MEDS ORDERED: CIPROFLOXACIN 500 MG/5 ML, ORAL SUSP PO SCH (11:09)
[2019-08-28] MEDS ORDERED: CIPR500S2 PO (11:14)
[2019-08-28] MEDS ORDERED: AMOXICILLIN/CLAV. ES 600 MG/5 ML, ORAL SUSP PO SCH (11:30)
[2019-08-28 13:17] VITALS: BP 126/92
== END 2019-08-28 13:30 | disposition home or self-care (01) | DRG 871 ==
LOC: ED 17:51 → EDIP 20:36 → 3WST 21:20 → 4NW 08-25 22:05
PROVIDERS: ADMIT Family Medicine; ATTEND Internal Medicine
DX: A41.9 Sepsis, unspecified organism (principal); J69.0 Pneumonitis due to inhalation of food and vomit; E43 Unspecified severe protein-calorie malnutrition; J15.1 Pneumonia due to Pseudomonas; J14 Pneumonia due to Hemophilus influenzae; J47.0 Bronchiectasis with acute lower respiratory infection; F11.20 Opioid dependence, uncomplicated; Z68.1 Body mass index [BMI] 19.9 or less, adult; E86.0 Dehydration; D50.9 Iron deficiency anemia, unspecified; C11.9 Malignant neoplasm of nasopharynx, unspecified; D63.8 Anemia in other chronic diseases classified elsewhere; E03.9 Hypothyroidism, unspecified; G89.3 Neoplasm related pain (acute) (chronic); I10 Essential (primary) hypertension; K22.2 Esophageal obstruction; K21.9 Gastro-esophageal reflux disease without esophagitis; K62.89 Other specified diseases of anus and rectum; T40.2X5A Adverse effect of other opioids, initial encounter; K59.03 Drug induced constipation; Z80.8 Family history of malignant neoplasm of other organs or systems; Z85.818 Personal history of malignant neoplasm of other sites of lip, oral cavity, and pharynx; Z86.011 Personal history of benign neoplasm of the brain; Z87.891 Personal history of nicotine dependence; Z92.21 Personal history of antineoplastic chemotherapy; Z92.3 Personal history of irradiation; Z88.5 Allergy status to narcotic agent; Z88.8 Allergy status to other drugs, medicaments and biological substances; Z03.818 Encounter for observation for suspected exposure to other biological agents ruled out; Y92.89 Other specified places as the place of occurrence of the external cause; Z93.0 Tracheostomy status; Z79.899 Other long term (current) drug therapy; Y95 Nosocomial condition; W90.0XXA Exposure to radiofrequency, initial encounter; Y93.89 Activity, other specified; Y99.8 Other external cause status
CPT/HCPCS: 36415; 74022; 80048; 80053; 80202; 81003; 83605; 83690; 83735; 84100; 85025; 87040; 87070; 87077; 87186; 87205; 96374; 96375; G0378; J1170; J2405; J2543; J3370; J1200; J7030; J7040; J7050; Q0163

== ENCOUNTER 2020-02-20 14:47 | Emergency (ER) | payer MEDICARE, MEDICAID ==
[~2020-02-20] VITALS: Ht 182.9 cm; Wt 61.8 kg
[~2020-02-20 14:47] MED LIST changes: +ALBU0.63 NEB; +AZIT1PAC PO; +CIPR500S2 PO; -OXYC15TA PO; +OXYC15TA3 PO; +[UNRECOGNIZED DRUG - CODE] HHN
--- NOTE | 2020-02-20 15:13 | NUR ---
PT TO ROOM FROM LOBBY VIA WC.
--- NOTE | 2020-02-20 15:17 | NUR ---
PT PLACED ON BP CUFF, PULSE OX. PT REPORTS OF LOW BACK PAIN WITH RADIATION AND SOME NUMBNESS TO BOTH LEGS SINCE LAST NIGHT. PT DENIES INJURY, DYSURIA, INCONTINENCE. PT HAS HAD THIS PAIN BEFORE AND USUALLY SEEN IN ED FOR SAME. MOTHER AT BS. CALL LIGHT WITHIN REACH.
--- NOTE | 2020-02-20 15:27 | NUR ---
PT ABLE TO AMBULATE FROM TO [facility]. PT REQUESTING TWO BLANKETS AND THEN HOSPITAL SOCKS WHICH WERE PROVIDED. ERP IN TO SEE, AWAITING ORDERS.
[2020-02-20] MEDS ORDERED: ONDANSETRON 2MG/ML, 2ML IVPush ONE (15:30)
[2020-02-20] MEDS ORDERED: KETOROLAC 30 MG/1 ML IVPush ONE (15:30)
[2020-02-20] MEDS ORDERED: CYCLOBENZAPRINE 10 MG TABLET PO ONE (15:30)
[2020-02-20] MEDS ORDERED: SODIUM CHLORIDE 0.9% 1,000ML IVBOLUS ONE ×2 (15:30→18:00)
[2020-02-20] MEDS ORDERED: SODIUM CHLORIDE FLUSH 10ML SYR IVF ONE (15:30)
[2020-02-20] MEDS ORDERED: KETOROLAC 30 MG/1 ML ONE (15:37)
[2020-02-20] MEDS ORDERED: HYDROmorphone 1 MG/ML, 1ML INJ ONE ×2 (15:37→17:02)
[2020-02-20] MEDS ORDERED: ONDANSETRON 2MG/ML, 2ML ONE (15:38)
[2020-02-20] MEDS: HYDROmorphone 2 MG/ML, 1ML IVPush PRN ×2 (15:53→17:02)
--- NOTE | 2020-02-20 15:56 | NUR ---
IV PLACED BY MEDIC STUDENT. LABS DRAWN WITH START. NS BOLUS INFUSING, MEDS GIVEN PER ERP ORDER FOR 10/10 LOW BACK AND BLE PAIN. URINAL AT BS, CALL LIGHT WITHIN REACH.
[2020-02-20 16:24] LABS: MEAN CORPUSCULAR HEMOGLOBIN 26.3 pg (27.5-34.5); MEAN CORPUSCULAR HGB CONC 31.9 g/dL (33.2-36.2); PLATELET COUNT 286 x10^3/uL (130-400); RED BLOOD COUNT 5.22 x10^6/uL (4.38-5.82); RED CELL DISTRIBUTION WIDTH 14.9 % (9.4-14.8)
[2020-02-20 16:29] LABS: ALANINE AMINOTRANSFERASE 23 U/L (12-78); ALBUMIN 3.8 g/dL (3.4-5.0); ANION GAP 7 mmol/L (5-15); CALCIUM 9.1 mg/dL (8.5-10.1); CHLORIDE 101 mmol/L (98-107); CREATININE 0.98 mg/dL (0.7-1.3)
[2020-02-20 16:31] LABS: ALKALINE PHOSPHATASE 87 U/L (45-117); BILIRUBIN,TOTAL 0.4 mg/dL (0.2-1.0); TOTAL PROTEIN 8.9 g/dL (6.4-8.2)
[2020-02-20 16:52] LABS: BASOPHILS # (AUTO) 0.02 x10^3/uL (0-0.1); BASOPHILS % (AUTO) 0 % (0-1); EOSINOPHILS # (AUTO) 0.01 x10^3/uL (0-0.4); EOSINOPHILS % (AUTO) 0 % (1-7); LYMPHOCYTES # (AUTO) 0.38 x10^3/uL (1-3.4); LYMPHOCYTES % (AUTO) 3 % (22-44); MONOCYTES # (AUTO) 1.06 x10^3/uL (0.2-0.8); MONOCYTES % (AUTO) 7 % (2-9); NEUTROPHILS # (AUTO) 13.87 x10^3/uL (1.8-6.8); NEUTROPHILS % (AUTO) 90 % (42-75)
[2020-02-20 16:53] LABS: MD SCAN
[2020-02-20 17:46] LABS: MICROSCOPIC INDICATED
--- NOTE | 2020-02-20 18:54 | NUR ---
BEDSIDE REPORT FROM BALDEMAR SCOTT. PT SITTING IN BED, MARTINEZN. FLUIDS INFUSING.
[2020-02-20 19:06] VITALS: BP 152/104
--- NOTE | 2020-02-20 19:06 | NUR ---
TASK RN: PT D/C WITH D/C SUMMARY. ALL QUESTIONS ANSWERED. PT VSS AND UPDATED IN EMR PRIOR TO D/C. PIV D/C WITH TIP INTACT. PT DENIES ANY OTHER NEEDS PERTAINING TO THIS VISIT AND AMBULATES TO REGISTRATION DESK WITH STEADY GAIT FOR D/C HOME.
== END 2020-02-20 19:08 | disposition home or self-care (01) ==
LOC: ED 18:29
DX: M54.5 Low back pain (principal); E86.0 Dehydration; R53.1 Weakness; I10 Essential (primary) hypertension; K21.9 Gastro-esophageal reflux disease without esophagitis; E03.9 Hypothyroidism, unspecified; Z88.6 Allergy status to analgesic agent; Z88.8 Allergy status to other drugs, medicaments and biological substances
CPT/HCPCS: 36415; 71045; 72110; 80053; 81001; 85025; 96361; 96374; 96375; 96376; 99285; J1170; J1885; J2405; J7030

== ENCOUNTER 2020-08-20 11:26 | Inpatient (IN) | payer MEDICARE, MEDICAID ==
[~2020-08-20] VITALS: Ht 182.9 cm; Wt 62.0 kg
[~2020-08-20 11:26] MED LIST changes: -CIPR500T3 PO; +CIPR500T4 PO; -LISI-424 PO; +LISI-606 PO
--- NOTE | 2020-08-20 11:38 | NUR ---
PT EKG DONE IN TRIAGE
[2020-08-20] MEDS ORDERED: SODIUM CHLORIDE 0.9% 1,000ML IVBOLUS ONE (12:00)
[2020-08-20 12:06] LABS: BASOPHILS % (AUTO) 1 % (0-1); EOSINOPHILS % (AUTO) 0 % (1-7); LYMPHOCYTES % (AUTO) 10 % (22-44); MEAN CORPUSCULAR HGB CONC 32.3 g/dL (33.2-36.2); MEAN PLATELET VOLUME 7.1 fL (7.4-10.4); MONOCYTES % (AUTO) 6 % (2-9); NEUTROPHILS % (AUTO) 83 % (42-75); PLATELET COUNT 357 x10^3/uL (130-400); RED BLOOD COUNT 5.42 x10^6/uL (4.38-5.82); RED CELL DISTRIBUTION WIDTH 15.5 % (9.4-14.8)
[2020-08-20 12:09] LABS: MD NO
[2020-08-20 12:11] LABS: ANION GAP 7 mmol/L (5-15); CALCIUM 9.6 mg/dL (8.5-10.1); CHLORIDE 100 mmol/L (98-107)
[2020-08-20 12:14] LABS: ALANINE AMINOTRANSFERASE 14 U/L (12-78); ALKALINE PHOSPHATASE 90 U/L (45-117); BILIRUBIN,TOTAL 0.4 mg/dL (0.2-1.0); CREATININE 1.04 mg/dL (0.7-1.3); TOTAL PROTEIN 8.9 g/dL (6.4-8.2)
--- NOTE | 2020-08-20 12:25 | NUR ---
desktop engineer: pt from lobby to room 18
--- NOTE | 2020-08-20 12:35 | NUR ---
PT BROUGHT BACK TO ROOM FROM LOBBY. PT CO ABD PAIN/NAUSEAX1 DAY/ PT STATES PAIN IS 10/10. PT HAS LONG MEDICAL HX INCLUDING PANCREATITIS AND NASOPHARYNGEAL CA. PT DENIES ANY FEVER OR DIARRHEA.
[2020-08-20] MEDS ORDERED: HYDROmorphone 1 MG/ML, 1ML INJ ONE ×3 (12:48→17:05)
[2020-08-20] MEDS ORDERED: ONDANSETRON ODT 4 MG ONE (12:48)
[2020-08-20] MEDS ORDERED: ONDANSETRON 2MG/ML, 2ML ONE ×2 (12:49→16:36)
[2020-08-20] MEDS ORDERED: HYDROmorphone 1 MG/ML, 1ML INJ IV ONE ×2 (13:00→14:00)
[2020-08-20] MEDS ORDERED: ONDANSETRON 2MG/ML, 2ML IVPush ONE ×2 (13:00→17:00)
--- NOTE | 2020-08-20 13:22 | NUR ---
PT TO IMAGING
[2020-08-20] MEDS ORDERED: LABETALOL 5MG/ML, 20ML ONE (14:25)
[2020-08-20] MEDS ORDERED: LABETALOL 5MG/ML, 20ML IVPush ONE (14:30)
--- NOTE | 2020-08-20 14:35 | NUR ---
PT RESTING COMFORTABLY, CALL LIGHT WITHIN REACH
[2020-08-20] MEDS ORDERED: hydrALAzine 20 MG/ML, 1ML ONE (15:40)
--- NOTE | 2020-08-20 15:43 | NUR ---
PT GIVEN HYDRALAZINE FOR ELEVATED BP
[2020-08-20] MEDS ORDERED: hydrALAzine 20 MG/ML, 1ML IV ONE (16:30)
[2020-08-20] MEDS ORDERED: HYDROmorphone 1 MG/ML, 1ML INJ IVPush PRN (17:00)
--- NOTE | 2020-08-20 17:08 | NUR ---
LUCIANO SULLIVAN NOTIFIED PT'S BP ELEVATED AT 171/123 , LAST DOSE DILAUDID 2 HRS AGO. MD HAAS'D REPEAT 1MG IV DILAUDID DOSE.
--- NOTE | 2020-08-20 17:17 | NUR ---
break RN note: pt medicated per emar for 02/06 abdominal pain which pt states is chronic but exacerbated today. pt is a&o, resps even and unlabored. bp and spo2 monitors in place. at bedside. hospitalist at bedside to admit.
[2020-08-20] MEDS ORDERED: ONDANSETRON 2MG/ML, 2ML IVPush PRN (17:30)
[2020-08-20] MEDS ORDERED: SODIUM CHLORIDE 0.9% 1,000 ML IV ONE (17:30)
--- NOTE | 2020-08-20 17:45 | NUR ---
TP RN: PRIVATE MED TELE ROOM REQUESTED PER .
[2020-08-20] MEDS ORDERED: LORazepam 2 MG/ML, 1ML IVPush PRN (18:00)
[2020-08-20] MEDS ORDERED: SODIUM CHLORIDE FLUSH 10ML SYR IVF PRN (18:00)
[2020-08-20] MEDS ORDERED: hydrALAzine 20 MG/ML, 1ML IV PRN (18:00)
[2020-08-20] MEDS ORDERED: ACETAMINOPHEN 325 MG TABLET PO PRN (18:00)
[2020-08-20] MEDS ORDERED: LABETALOL 5MG/ML, 20ML IVPush PRN (18:00)
--- NOTE | 2020-08-20 18:05 | NUR ---
ATTEMPTED TO CALL REPORT TO FLOOR.
--- NOTE | 2020-08-20 18:20 | NUR ---
REPORT GIVEN TO BALDEMAR DUFF
[2020-08-20] MEDS ORDERED: ENALAPRILAT 1.25 MG/ML, 1ML ONE (18:30)
[2020-08-20] MEDS ORDERED: OxyconTIN ER 15 MG TAB.ER PO SCH (18:30)
[2020-08-20] MEDS: ENALAPRILAT 1.25 MG/ML, 2ML IV PRN (18:36)
[2020-08-20 18:39] VITALS: BP 218/152
[2020-08-20 19:00] VITALS: BP 212/148
[2020-08-20] MEDS: POTASSIUM CHLORIDE 20 MEQ in LACTATED RINGERS 1,000 ML IV SCH (20:09)
[2020-08-20] MEDS: CAPSAICIN CRM 0.075%, 60GM TP SCH (20:09)
[2020-08-20] MEDS: CIPROFLOXACIN DEXAMETHASONE EAR SUSP 7.5ML LEFT EAR SCH (20:09)
[2020-08-20] MEDS: HYDROmorphone 2 MG/ML, 1ML IVPush PRN ×2 (20:09→23:50)
[2020-08-20 20:25] VITALS: BP 200/137
[2020-08-20] MEDS: ONDANSETRON 2MG/ML, 2ML IVPush PRN (20:43)
[2020-08-20 22:02] VITALS: BP 150/103
[2020-08-20 22:59] VITALS: BP 149/101
[2020-08-21] VITALS (18 sets, daily range): BP systolic 91–179; BP diastolic 52–132
[2020-08-21] MEDS: HYDROmorphone 2 MG/ML, 1ML IVPush PRN ×6 (02:50→22:31)
[2020-08-21] MEDS: CAPSAICIN CRM 0.075%, 60GM TP SCH ×3 (03:22→20:00)
[2020-08-21] MEDS: CIPROFLOXACIN DEXAMETHASONE EAR SUSP 7.5ML LEFT EAR SCH ×3 (03:23→20:21)
[2020-08-21 05:17] LABS: BASOPHILS % (AUTO) 0 % (0-1); EOSINOPHILS % (AUTO) 0 % (1-7); LYMPHOCYTES % (AUTO) 6 % (22-44); MEAN CORPUSCULAR HGB CONC 32.6 g/dL (33.2-36.2); MEAN PLATELET VOLUME 6.9 fL (7.4-10.4); MONOCYTES % (AUTO) 7 % (2-9); NEUTROPHILS % (AUTO) 87 % (42-75); PLATELET COUNT 359 x10^3/uL (130-400); RED BLOOD COUNT 5.58 x10^6/uL (4.38-5.82); RED CELL DISTRIBUTION WIDTH 15.3 % (9.4-14.8)
[2020-08-21 05:20] LABS: MD NO
[2020-08-21] MEDS ORDERED: DOXAZOSIN 1MG TABLET ONE (05:23)
[2020-08-21 05:24] LABS: ALANINE AMINOTRANSFERASE 15 U/L (12-78); ALBUMIN 3.5 g/dL (3.4-5.0); ANION GAP 7 mmol/L (5-15); CALCIUM 8.6 mg/dL (8.5-10.1); CHLORIDE 96 mmol/L (98-107); CREATININE 0.81 mg/dL (0.7-1.3)
[2020-08-21 05:27] LABS: ALKALINE PHOSPHATASE 92 U/L (45-117); BILIRUBIN,TOTAL 0.5 mg/dL (0.2-1.0); TOTAL PROTEIN 8.3 g/dL (6.4-8.2)
[2020-08-21] MEDS: LEVOTHYROXINE 112 MCG TABLET PO SCH (05:30)
[2020-08-21] MEDS: DOXAZOSIN 1MG TABLET PO SCH (05:30)
[2020-08-21] MEDS: POTASSIUM CHLORIDE 20 MEQ in LACTATED RINGERS 1,000 ML IV SCH (05:31)
[2020-08-21] MEDS: ONDANSETRON 2MG/ML, 2ML IVPush PRN ×3 (05:35→20:21)
[2020-08-21] MEDS ORDERED: cloniDINE 0.1MG PATCH TD SCH (07:00)
[2020-08-21] MEDS ORDERED: SODIUM PHOSPHATE 10 MMOL in SODIUM CHLORIDE 0.9% 500 ML IV ONE (07:00)
[2020-08-21] MEDS ORDERED: MAGNESIUM SULFATE PMX 2GM/50ML 50 ML IV ONE (07:00)
[2020-08-21] MEDS: AMPICILLIN/SULBACTAM 3 GM in SODIUM CHLORIDE 0.9% 100 ML IV SCH ×3 (08:46→20:20)
[2020-08-21] MEDS: METOPROLOL TARTRATE 25 MG TAB PO SCH ×2 (08:46→09:01)
[2020-08-21] MEDS ORDERED: DOXAZOSIN 1MG TABLET PO SCH (09:00)
[2020-08-21] MEDS: LACTATED RINGERS 1,000 ML IV SCH ×2 (10:52→18:06)
[2020-08-21 11:02] LABS: FREE T4 (FREE THYROXINE) 1.34 ng/dL (0.76-1.46)
[2020-08-21 12:43] LABS: MICROSCOPIC NOT IND
[2020-08-21] MEDS ORDERED: LACTATED RINGERS 500 ML IVBOLUS ONE (13:00)
[2020-08-21] MEDS: DIPHENHYDRAMINE 50 MG/ML, 1ML IVPush PRN (21:43)
[2020-08-22] VITALS (8 sets, daily range): BP systolic 90–157; BP diastolic 56–92
[2020-08-22] MEDS: AMPICILLIN/SULBACTAM 3 GM in SODIUM CHLORIDE 0.9% 100 ML IV SCH ×4 (01:41→18:24)
[2020-08-22] MEDS: ONDANSETRON 2MG/ML, 2ML IVPush PRN (03:33)
[2020-08-22] MEDS: HYDROmorphone 2 MG/ML, 1ML IVPush PRN ×5 (03:33→23:18)
[2020-08-22] MEDS: CAPSAICIN CRM 0.075%, 60GM TP SCH ×3 (03:40→20:04)
[2020-08-22] MEDS: CIPROFLOXACIN DEXAMETHASONE EAR SUSP 7.5ML LEFT EAR SCH ×3 (03:40→20:03)
[2020-08-22] MEDS: LACTATED RINGERS 1,000 ML IV SCH (04:09)
[2020-08-22 05:04] LABS: BASOPHILS % (AUTO) 0 % (0-1); EOSINOPHILS % (AUTO) 0 % (1-7); LYMPHOCYTES % (AUTO) 7 % (22-44); MEAN CORPUSCULAR HEMOGLOBIN 25.8 pg (27.5-34.5); MEAN CORPUSCULAR HGB CONC 32.2 g/dL (33.2-36.2); MEAN PLATELET VOLUME 6.9 fL (7.4-10.4); MONOCYTES % (AUTO) 9 % (2-9); NEUTROPHILS % (AUTO) 84 % (42-75); PLATELET COUNT 267 x10^3/uL (130-400); RED BLOOD COUNT 5.12 x10^6/uL (4.38-5.82); RED CELL DISTRIBUTION WIDTH 15.3 % (9.4-14.8)
[2020-08-22 05:12] LABS: ANION GAP 4 mmol/L (5-15); CALCIUM 8.6 mg/dL (8.5-10.1); CHLORIDE 103 mmol/L (98-107); CREATININE 0.99 mg/dL (0.7-1.3)
[2020-08-22] MEDS: LEVOTHYROXINE 112 MCG TABLET PO SCH (05:56)
[2020-08-22 05:57] LABS: MD SCAN
[2020-08-22] MEDS: OXYcodone IR 5MG TABLET PO SCH ×3 (08:05→20:04)
[2020-08-22] MEDS: DOXAZOSIN 1MG TABLET PO SCH (08:05)
[2020-08-22] MEDS: DIPHENHYDRAMINE 50 MG/ML, 1ML IVPush PRN (20:03)
[2020-08-23] VITALS (9 sets, daily range): BP systolic 90–169; BP diastolic 52–119
[2020-08-23] MEDS: AMPICILLIN/SULBACTAM 3 GM in SODIUM CHLORIDE 0.9% 100 ML IV SCH ×4 (00:53→18:38)
[2020-08-23] MEDS: OXYcodone IR 5MG TABLET PO SCH ×4 (00:54→19:56)
[2020-08-23] MEDS: CIPROFLOXACIN DEXAMETHASONE EAR SUSP 7.5ML LEFT EAR SCH ×4 (03:15→19:56)
[2020-08-23] MEDS: CAPSAICIN CRM 0.075%, 60GM TP SCH ×3 (03:15→19:56)
[2020-08-23] MEDS: LEVOTHYROXINE 112 MCG TABLET PO SCH (05:38)
[2020-08-23] MEDS: ONDANSETRON 2MG/ML, 2ML IVPush PRN (05:38)
[2020-08-23] MEDS: HYDROmorphone 2 MG/ML, 1ML IVPush PRN ×4 (05:39→17:23)
[2020-08-23 05:48] LABS: BASOPHILS % (AUTO) 0 % (0-1); EOSINOPHILS % (AUTO) 0 % (1-7); LYMPHOCYTES % (AUTO) 8 % (22-44); MEAN CORPUSCULAR HEMOGLOBIN 26.2 pg (27.5-34.5); MEAN CORPUSCULAR HGB CONC 32.6 g/dL (33.2-36.2); MONOCYTES % (AUTO) 8 % (2-9); NEUTROPHILS % (AUTO) 83 % (42-75); PLATELET COUNT 246 x10^3/uL (130-400); RED BLOOD COUNT 5.06 x10^6/uL (4.38-5.82); RED CELL DISTRIBUTION WIDTH 15.5 % (9.4-14.8)
[2020-08-23 05:53] LABS: MD NO
[2020-08-23] MEDS: DOXAZOSIN 1MG TABLET PO SCH ×2 (09:24→13:30)
[2020-08-23] MEDS: DIPHENHYDRAMINE 50 MG/ML, 1ML IVPush PRN ×2 (10:02→19:55)
[2020-08-23] MEDS ORDERED: SODIUM CHLORIDE 0.9%, 500ML IVBOLUS ONE (10:30)
[2020-08-23 10:46] LABS: ALANINE AMINOTRANSFERASE 11 U/L (12-78); ANION GAP 3 mmol/L (5-15); CALCIUM 8.5 mg/dL (8.5-10.1); CHLORIDE 102 mmol/L (98-107)
[2020-08-23 10:49] LABS: ALKALINE PHOSPHATASE 63 U/L (45-117); BILIRUBIN,TOTAL 0.4 mg/dL (0.2-1.0); CREATININE 1.03 mg/dL (0.7-1.3); TOTAL PROTEIN 6.9 g/dL (6.4-8.2)
[2020-08-23] MEDS: ENOXAPARIN 40 MG/0.4 ML SQ SCH (15:30)
[2020-08-23] MEDS ORDERED: ENALAPRILAT 1.25 MG/ML, 1ML ONE (16:20)
[2020-08-23] MEDS: ENALAPRILAT 1.25 MG/ML, 2ML IV PRN (16:33)
[2020-08-24] MEDS: AMPICILLIN/SULBACTAM 3 GM in SODIUM CHLORIDE 0.9% 100 ML IV SCH ×4 (01:13→18:41)
[2020-08-24 01:15] VITALS: BP 105/71
[2020-08-24] MEDS: ONDANSETRON 2MG/ML, 2ML IVPush PRN ×2 (02:02→18:03)
[2020-08-24] MEDS: OXYcodone IR 5MG TABLET PO SCH ×4 (02:03→21:28)
[2020-08-24] MEDS: CAPSAICIN CRM 0.075%, 60GM TP SCH ×3 (03:02→20:00)
[2020-08-24] MEDS: CIPROFLOXACIN DEXAMETHASONE EAR SUSP 7.5ML LEFT EAR SCH ×3 (04:04→21:26)
[2020-08-24] MEDS: HYDROmorphone 2 MG/ML, 1ML IVPush PRN ×4 (04:05→23:15)
[2020-08-24 05:11] LABS: BASOPHILS % (AUTO) 0 % (0-1); EOSINOPHILS % (AUTO) 0 % (1-7); LYMPHOCYTES % (AUTO) 6 % (22-44); MEAN CORPUSCULAR HGB CONC 32.5 g/dL (33.2-36.2); MEAN PLATELET VOLUME 7.2 fL (7.4-10.4); MONOCYTES % (AUTO) 8 % (2-9); NEUTROPHILS % (AUTO) 85 % (42-75); PLATELET COUNT 226 x10^3/uL (130-400); RED BLOOD COUNT 4.85 x10^6/uL (4.38-5.82); RED CELL DISTRIBUTION WIDTH 15.2 % (9.4-14.8)
[2020-08-24 05:14] LABS: MD NO
[2020-08-24] MEDS: LEVOTHYROXINE 112 MCG TABLET PO SCH (06:02)
[2020-08-24 08:26] VITALS: BP 147/89
[2020-08-24] MEDS: DIPHENHYDRAMINE 50 MG/ML, 1ML IVPush PRN ×2 (11:25→21:38)
[2020-08-24 13:58] VITALS: BP 99/58
[2020-08-24] MEDS: ENOXAPARIN 40 MG/0.4 ML SQ SCH (15:24)
[2020-08-24 19:03] VITALS: BP 105/68
[2020-08-24] MEDS ORDERED: DOXAZOSIN 1MG TABLET PO SCH (21:00)
[2020-08-25] MEDS: AMPICILLIN/SULBACTAM 3 GM in SODIUM CHLORIDE 0.9% 100 ML IV SCH ×2 (01:07→08:21)
[2020-08-25 01:32] VITALS: BP 112/76
[2020-08-25] MEDS: OXYcodone IR 5MG TABLET PO SCH ×2 (03:34→09:29)
[2020-08-25] MEDS: CAPSAICIN CRM 0.075%, 60GM TP SCH (04:00)
[2020-08-25] MEDS: CIPROFLOXACIN DEXAMETHASONE EAR SUSP 7.5ML LEFT EAR SCH (05:58)
[2020-08-25] MEDS: LEVOTHYROXINE 112 MCG TABLET PO SCH (05:58)
[2020-08-25] MEDS: ONDANSETRON 2MG/ML, 2ML IVPush PRN (05:59)
[2020-08-25] MEDS: HYDROmorphone 2 MG/ML, 1ML IVPush PRN (05:59)
[2020-08-25 06:01] LABS: BASOPHILS % (AUTO) 1 % (0-1); EOSINOPHILS % (AUTO) 1 % (1-7); LYMPHOCYTES % (AUTO) 11 % (22-44); MEAN CORPUSCULAR HEMOGLOBIN 26.1 pg (27.5-34.5); MEAN CORPUSCULAR HGB CONC 32.7 g/dL (33.2-36.2); MONOCYTES % (AUTO) 9 % (2-9); NEUTROPHILS % (AUTO) 78 % (42-75); PLATELET COUNT 255 x10^3/uL (130-400); RED BLOOD COUNT 4.85 x10^6/uL (4.38-5.82); RED CELL DISTRIBUTION WIDTH 15.5 % (9.4-14.8)
[2020-08-25 06:05] LABS: MD NO
[2020-08-25 07:21] VITALS: BP 109/71
[2020-08-25] MEDS ORDERED: AMOX600S4 PO (09:18)
== END 2020-08-25 11:12 | disposition home or self-care (01) | DRG 305 ==
LOC: ED 14:36 → EDIP 16:53 → SUATTDRO 17:11 → 5SO 18:32
PROVIDERS: ADMIT Internal Medicine; ATTEND Hospitalist
DX: I16.0 Hypertensive urgency (principal); J47.1 Bronchiectasis with (acute) exacerbation; R64 Cachexia; Z68.1 Body mass index [BMI] 19.9 or less, adult; H60.90 Unspecified otitis externa, unspecified ear; E86.0 Dehydration; C11.9 Malignant neoplasm of nasopharynx, unspecified; Z88.5 Allergy status to narcotic agent; Z88.8 Allergy status to other drugs, medicaments and biological substances; D72.829 Elevated white blood cell count, unspecified; E03.9 Hypothyroidism, unspecified; G89.29 Other chronic pain; I10 Essential (primary) hypertension; Z85.818 Personal history of malignant neoplasm of other sites of lip, oral cavity, and pharynx; K22.2 Esophageal obstruction; I95.9 Hypotension, unspecified; R00.0 Tachycardia, unspecified
CPT/HCPCS: 36415; 71045; 74176; 80048; 80053; 81003; 82533; 83605; 83690; 83735; 84100; 84145; 84439; 84443; 85025; 87040; 93005; 96361; 96374; 96375; 99285; G0378; J0295; J1170; J1650; J2405; J3480; J7120; J0360; J1200; J3475; J7030; J7040

== ENCOUNTER 2020-10-10 09:41 | Emergency (ER) | payer MEDICARE, MEDICAID ==
[~2020-10-10] VITALS: Ht 185.4 cm; Wt 59.4 kg
[2020-10-10] MEDS ORDERED: CIPR7.5D OT (10:09)
[2020-10-10] MEDS ORDERED: HYDROmorphone 1 MG/ML, 1ML INJ IV ONE ×2 (10:30→12:30)
[2020-10-10] MEDS ORDERED: ONDANSETRON 2MG/ML, 2ML IVPush ONE (10:30)
[2020-10-10] MEDS ORDERED: SODIUM CHLORIDE 0.9% 1,000ML IVBOLUS ONE (10:30)
[2020-10-10] MEDS ORDERED: SODIUM CHLORIDE FLUSH 10ML SYR IVF ONE (10:30)
[2020-10-10] MEDS ORDERED: HYDROmorphone 1 MG/ML, 1ML INJ ONE ×2 (10:46→11:45)
[2020-10-10] MEDS ORDERED: ONDANSETRON 2MG/ML, 2ML ONE (10:46)
--- NOTE | 2020-10-10 10:58 | NUR ---
IV ACCESS OBTAINED. PT MEDICATED PER JUL. PT ON NIBP AND O2 MONITORING. PT BP NOTED HYPERTENSIVE. PT STATES HX OF HTN. REEPORT TO MARIA R MCDERMOTT
[2020-10-10 11:11] LABS: ALBUMIN 3.8 g/dL (3.4-5.0); ANION GAP 4 mmol/L (5-15); CALCIUM 9.1 mg/dL (8.5-10.1); CHLORIDE 105 mmol/L (98-107)
[2020-10-10 11:15] LABS: ALANINE AMINOTRANSFERASE 16 U/L (12-78); ALKALINE PHOSPHATASE 88 U/L (45-117); BILIRUBIN,TOTAL 0.3 mg/dL (0.2-1.0); CREATININE 0.93 mg/dL (0.7-1.3); TOTAL PROTEIN 8.6 g/dL (6.4-8.2)
[2020-10-10 11:26] LABS: BASOPHILS % (AUTO) 0 % (0-1); EOSINOPHILS % (AUTO) 0 % (1-7); LYMPHOCYTES % (AUTO) 9 % (22-44); MEAN CORPUSCULAR HEMOGLOBIN 26.5 pg (27.5-34.5); MEAN CORPUSCULAR HGB CONC 32.8 g/dL (33.2-36.2); MEAN PLATELET VOLUME 6.8 fL (7.4-10.4); MONOCYTES % (AUTO) 5 % (2-9); NEUTROPHILS % (AUTO) 85 % (42-75); PLATELET COUNT 333 x10^3/uL (130-400); RED BLOOD COUNT 5.24 x10^6/uL (4.38-5.82); RED CELL DISTRIBUTION WIDTH 14.9 % (9.4-14.8)
--- NOTE | 2020-10-10 11:38 | NUR ---
PT AT IMAGING.
[2020-10-10 11:56] LABS: MD SCAN
--- NOTE | 2020-10-10 12:15 | NUR ---
PT C/O 03/08 PAIN. ERPA NOTIFIED. SQL MANAGER PER JUL. PT PROVIDED URINE SAMPLE. UA COLLECTED AND SENT TO LAB.
[2020-10-10 12:36] LABS: MICROSCOPIC INDICATED
--- NOTE | 2020-10-10 12:53 | NUR ---
ALL RESULTS ARE BACK AT THIS TIME. CHART UP FOR RECHECK.
[2020-10-10 13:35] VITALS: BP 146/98
[2020-10-10] MEDS ORDERED: OMNIPAQUE 350 MG/ML, 100ML BOTTLE ONE (14:01)
== END 2020-10-10 13:37 | disposition home or self-care (01) ==
LOC: ED 09:47
DX: R10.84 Generalized abdominal pain (principal); R11.2 Nausea with vomiting, unspecified; I10 Essential (primary) hypertension; E03.9 Hypothyroidism, unspecified
CPT/HCPCS: 36415; 74177; 80053; 81001; 83690; 85025; 96361; 96374; 96375; 96376; 99285; J1170; J2405; J7030; Q9967